=== PATIENT | male | born 1965 | race Caucasian/White ===

== ENCOUNTER 2022-08-27 16:17 | Outpatient (OUT) | payer OTHER, SELFPAY ==
[2022-08-27 16:35] LABS: Basophils Percent Auto 0.4 % (0.2-2.0); Eosinophils Absolute Auto 0.2 10^3/uL (0.0-0.7); Eosinophils Percent Auto 1.4 % (0.9-7.0); Hemoglobin 13.5 g/dL (14.0-18.0); Immature Granulocytes Abs Auto 0.04 10^3/uL (0.00-0.03); Immature Granulocytes Pct Auto 0.4 % (0.0-0.5); Lymphocytes Absolute Auto 2.6 10^3/uL (1.2-3.8); Lymphocytes Percent Auto 23.2 % (20.5-60.0); Mean Corpuscular HGB Conc 32.9 g/dL (29.9-35.2); Mean Corpuscular Hemoglobin 29.2 pg (25.9-34.0); Mean Corpuscular Volume 88.7 fL (80.0-94.0); Mean Platelet Volume 9.5 fL (9.5-13.5); Monocytes Absolute Auto 0.7 10^3/uL (0.3-0.8); Monocytes Percent Auto 6.4 % (1.7-12.0); Neutrophils Absolute Auto 7.5 10^3/uL (1.4-6.5); Neutrophils Percent Auto 68.2 % (43.0-75.0); Platelet Count 251 10^3/uL (150-450); Red Blood Count 4.62 10^6/uL (4.70-6.10); Red Cell Distribution Width 14.3 % (11.0-15.0)
[2022-08-27 16:36] LABS: Bilirubin Urine NEGATIVE (NEGATIVE); Blood Urine NEGATIVE (NEGATIVE); Clarity Urine CLEAR (CLEAR); Color Urine YELLOW (YELLOW); Glucose Urine UA >=1000 mg/dL (NEGATIVE); Ketones Urine NEGATIVE (NEGATIVE); Leukocyte Esterase Urine NEGATIVE (NEGATIVE); Nitrite Urine NEGATIVE (NEGATIVE); Protein Urine NEGATIVE (NEG/TRACE); Specific Gravity Urine >=1.030 (1.005-1.025); Urobilinogen Urine 0.2 EU/dL (0.2-1.0)
[2022-08-27 16:43] LABS: Bacteria Urine TRACE #/HPF (NONE SEEN); Cast Seen? SEEN #/LPF (NONE SEEN); Crystals Seen? None Seen #/HPF (None Seen); Hyaline Casts Urine RARE; Mucus Urine NONE SEEN (NONE SEEN); RBC Urine NONE SEEN #/HPF (0-2); Squamous Epithelial Cell Urine RARE #/LPF (NONE/RARE); WBC Urine NONE SEEN #/HPF (NONE SEEN)
[2022-08-27 16:55] LABS: Estimated Average Glucose 171 mg/dL; Glycohemoglobin A1C 7.6 % (4.5-6.2)
[2022-08-27 16:56] LABS: Alanine Aminotransferase 33 U/L (16-63); Albumin Globulin Ratio 0.9; Albumin Level 3.9 g/dL (3.4-5.0); Alkaline Phosphatase 68 U/L (46-116); Amylase 54 U/L (25-115); Anion Gap 13.5; Aspartate Amino Transferase 23 U/L (15-37); BUN Creatinine Ratio 17.5; Bilirubin Total 0.4 mg/dL (0.2-1.0); Calcium 9.6 mg/dL (8.5-10.1); Carbon Dioxide 27.5 mmol/L (21.0-32.0); Chloride 103 mmol/L (98-107); Estimated GFR (African America >60 (>=60); Estimated GFR (Non-African Ame >60 (>=60); Globulin 4.2 g/dL; Glucose 185 mg/dL (74-106); Sodium 140 mmol/L (136-145); Total Protein 8.1 g/dL (6.4-8.2)
== END 2022-08-27 16:18 | disposition home or self-care (01) ==
LOC: LAB 16:21
PROVIDERS: PCP Nurse Practitioner; Visit Provider Nurse Practitioner
DX: E11.9 Type 2 diabetes mellitus without complications (principal); R10.9 Unspecified abdominal pain
CPT/HCPCS: 36415; 80053; 81001; 82150; 83036; 83690; 85025

== ENCOUNTER 2022-09-07 07:45 | Outpatient (OUT) | payer OTHER, SELFPAY ==
--- NOTE | 2022-09-07 | US_ITS ---
The [address] [address] Patient Name: PITA HARDEN MRN: [id number] date: 1965 Sex: M Assigned Patient Location: [place] Current Patient Location: [place] Accession/Order Number: [id number] Exam Date: 09/07/2022 08:00 Report Date: 09/07/2022 11:20 At the request of: VALENTINO MENDIOLA Procedure: US right upper quadrant EXAM: US right upper quadrant EXAM DATE: 09/07/2022 6:00 AM MDT COMPARISON: None available. INDICATION: RUQ PAIN TECHNIQUE: Limited ultrasound of the right upper quadrant of abdomen was performed. Images were reviewed on a separate workstation. FINDINGS: Hepatic parenchyma is diffusely echogenic. Liver length measures 16.9 cm. No focal intraparenchymal abnormality detected. Gallbladder is normally distended. No intraluminal echogenic abnormality seen. No gallbladder wall thickening or pericholecystic fluid noted. Sonographic Aviles's sign is absent. No intrahepatic or extrahepatic biliary ductal dilatation noted. CBD measures 3.7 mm. Portal vein is patent with hepatopetal flow. Pancreas is partially obscured by bowel gas; visualized parenchyma is homogeneous. Right kidney measures 12.4 x 4.9 x 5.5 cm. No hydronephrosis or nephrolithiasis noted. No free fluid noted in the right upper abdomen. US/US right upper quadrant IMPRESSION: 1. Fatty infiltration of the liver. 2. No gallstones identified. Sonographic Aviles's sign is absent. Electronically authenticated by: ROBBY HE Date: 09/07/2022 11:20
== END 2022-09-07 07:46 | disposition home or self-care (01) ==
PROVIDERS: PCP Nurse Practitioner; Visit Provider Nurse Practitioner
DX: R10.11 Right upper quadrant pain (principal)
CPT/HCPCS: 76705

== ENCOUNTER 2022-09-16 11:54 | Outpatient (OUT) | payer OTHER, SELFPAY ==
--- NOTE | 2022-09-16 | NM_ITS ---
[address] [address] Patient Name: PITA HARDEN MRN: [id number] date: 1965 Sex: M Assigned Patient Location: [place] Current Patient Location: [place] Accession/Order Number: [id number] Exam Date: 09/16/2022 11:00 Report Date: 09/16/2022 15:58 At the request of: VALENTINO MENDIOLA Procedure: WI hepatobiliary w pharm EXAMINATION: [place] hepatobiliary w pharm HISTORY: RUQ PAIN , bloating, worse with fatty foods COMPARISON: Ultrasound right upper quadrant 09/07/2022 TECHNIQUE: Radionuclide hepatobiliary imaging was performed after intravenous injection of 4.6 mCi Tc-99m BRITTANY derivative with sequential acquisitions every 1 minute for one hour. Hepatobiliary imaging with gallbladder ejection fraction analysis was then performed with sequential imaging every 1 minute for 60 minutes following ingestion of 8 oz. Ensure Plus. FINDINGS: LIVER: Normal, prompt and uniform radiotracer uptake and clearing. BILIARY DUCTS: Normal radioisotopic biliary excretion. GALLBLADDER: Normal with no evidence of cystic duct obstruction. INTESTINE: Normal with no evidence of common biliary ductal obstruction. EJECTION FRACTION: 90 % within 60 minutes. (Normal EF > 38%). OTHER: Negative. [place] hepatobiliary w pharm IMPRESSION: 1. Normal nuclear medicine HIDA scan. Electronically authenticated by: STEPHANI DRISCOLL Date: 09/16/2022 15:58
== END 2022-09-16 11:55 | disposition home or self-care (01) ==
LOC: NM 11:54
PROVIDERS: PCP Nurse Practitioner; Visit Provider Nurse Practitioner
DX: R10.11 Right upper quadrant pain (principal)
CPT/HCPCS: 78227; A9537

== ENCOUNTER 2022-10-05 07:04 | Outpatient (OUT) | payer OTHER, SELFPAY ==
--- NOTE | 2022-10-05 07:10 | CT_ITS ---
The [address] [address] Patient Name: PITA HARDEN MRN: [id number] date: 1965 Sex: M Assigned Patient Location: CT Current Patient Location: Accession/Order Number: [id number] Exam Date: 10/05/2022 08:10 Report Date: 10/07/2022 09:00 At the request of: VALENTINO MENDIOLA Procedure: CT abdomen pelvis wo/w con EXAMINATION: CT abdomen pelvis wo/w con HISTORY: ABD PAIN. HX KIDNEY STONES R10.9 Z87.442 ; right upper quadrant pain for one month COMPARISON: No relevant comparison available. TECHNIQUE: Axial, Coronal, and Sagittal images were obtained without and/or with IV contrast as indicated by examination type. Dose reduction techniques were achieved by using automated exposure control and/or adjustment of mA and/or kV according to patient size and/or use of iterative reconstruction technique. FINDINGS: LUNG BASES: No visible pulmonary or pleural disease. LIVER: No enlargement, atrophy, suspicious density, or significant focal lesion. BILIARY: No dilatation or calcification. PANCREAS: No lesion, fluid collection, or abnormal duct dilatation. SPLEEN: No enlargement or focal lesion. ADRENALS: 3.2 cm almost entirely fatty right adrenal mass; lipoma versus adenoma. KIDNEYS: A few small rounded hypodensities within left kidney; too small to characterize but favoring cysts. No mass, obstruction, or calcification. BOWEL/MESENTERY: No visible mass, obstruction, or bowel wall thickening. Normal appendix. AORTA/VASCULAR: No aneurysm or dissection. RETROPERITONEUM: No mass or adenopathy. LYMPH NODES: No adenopathy. URINARY BLADDER: No visible focal wall thickening, lesion, or calculus. PELVIC ORGANS: No visible mass. Pelvic organs appropriate for patient age. ABDOMINAL WALL: No mass or hernia. BONES: No bony lesion or fracture. OTHER: Negative. CT/CT abdomen pelvis wo/w con IMPRESSION: 1. No acute or suspicious findings to account for patient's right upper quadrant symptoms. 2.No urinary tract calculi or obstructive uropathy. Electronically authenticated by: STEPHANI DRISCOLL Date: 10/07/2022 09:00
== END 2022-10-05 07:05 | disposition home or self-care (01) ==
LOC: CT 07:04
PROVIDERS: PCP Nurse Practitioner; Visit Provider Nurse Practitioner
DX: R10.9 Unspecified abdominal pain (principal); Z87.442 Personal history of urinary calculi
CPT/HCPCS: 74178; Q9967

== ENCOUNTER 2022-12-07 08:05 | Outpatient (OUT) | payer OTHER, SELFPAY ==
[2022-12-07 08:41] LABS: Estimated Average Glucose 177 mg/dL; Glycohemoglobin A1C 7.8 % (4.5-6.2)
[2022-12-07 09:23] LABS: BUN Creatinine Ratio 16.2; Calcium 9.1 mg/dL (8.5-10.1); Chloride 100 mmol/L (98-107); Estimated GFR (African America >60 (>=60); Estimated GFR (Non-African Ame >60 (>=60); Glucose 184 mg/dL (74-106); Sodium 141 mmol/L (136-145)
[2022-12-07 09:44] LABS: Prostate Specific Antigen Scrn 0.79 ng/mL (<=4.00)
== END 2022-12-07 08:06 | disposition home or self-care (01) ==
PROVIDERS: PCP Nurse Practitioner; Visit Provider Nurse Practitioner
DX: E11.42 Type 2 diabetes mellitus with diabetic polyneuropathy (principal); Z12.5 Encounter for screening for malignant neoplasm of prostate
CPT/HCPCS: 36415; 80048; 83036; G0103

== ENCOUNTER 2023-03-01 09:24 | Outpatient (OUT) | payer OTHER, SELFPAY ==
--- OUTSIDE RECORDS SUMMARY | 2023-03-01 09:27 | XMS_ITS | CCD ---
Author Name Unknown Address [address] [place] [id number] Organization [facility] Care Team Providers Care Foreign Car Mechanic Name Role Phone AICHHOLZ, VICE PRESIDENT OF COMPLIANCE VALENTINO Admitting Unavailable AICHHOLZ, VICE PRESIDENT OF COMPLIANCE VALENTINO Attending Unavailable AICHHOLZ, VICE PRESIDENT OF COMPLIANCE VALENTINO Primary Care Unavailable AICHHOLZ, VICE PRESIDENT OF COMPLIANCE VALENTINO Consulting Unavailable MADONNA CRUZ Consulting Unavailable AICHHOLZ, VICE PRESIDENT OF COMPLIANCE VALENTINO Admitting Unavailable AICHHOLZ, VICE PRESIDENT OF COMPLIANCE VALENTINO Attending Unavailable AICHHOLZ, VICE PRESIDENT OF COMPLIANCE VALENTINO Primary Care Unavailable AICHHOLZ, VICE PRESIDENT OF COMPLIANCE VALENTINO Consulting Unavailable AICHHOLZ, VICE PRESIDENT OF COMPLIANCE VALENTINO Admitting Unavailable AICHHOLZ, VICE PRESIDENT OF COMPLIANCE VALENTINO Attending Unavailable AICHHOLZ, VICE PRESIDENT OF COMPLIANCE VALENTINO Primary Care Unavailable AICHHOLZ, VICE PRESIDENT OF COMPLIANCE VALENTINO Consulting Unavailable AICHHOLZ, VALENTINO Attending Unavailable Allergies Allergy Classification Reported Allergen(s) Allergy Type Date of Onset Reaction(s) Facility (1 source) Amoxicillin Drug Allergy 03-24-2019 [facility] Repository Problems Active Problems Problem Classification Problem Date Documented Da te Episodic/Chronic Diabetes mellitus with complications (4 sources) Type 2 diabetes mellitus with diabetic polyneuropathy; Translations: [TYPE 2 DM W/DIABETIC POLYNEUROPATHY] Onset: 04-06-2022 Chronic Diabetes mellitus without complication (5 sources) Type 2 diabetes mellitus without complications; Translations: [TYPE 2 DM WITHOUT COMPLICATIONS] Onset: 06-26-2021 Chronic Other non-traumatic joint disorders (1 source) Pain in right hip; Translations: [PAIN IN RIGHT HIP] Onset: 04-11-2022 Episodic Other screening for suspected conditions (not mental disorders or infectious disease) (6 sources) Other specified abnormal findings of blood chemistry; Translations: [Encounter for screening for malignant neoplasm of prostate] Onset: 10-01-2021 Episodic Past or Other Problems Problem Classification Problem Date Documented Da te Episodic/Chronic Deficiency and other anemia (1 source) Anemia, unspecified; Translations: [ANEMIA UNSPECIFIED] Onset: 06-29-2021 Episodic Results Test Name Value Interpretation Reference Range Facility XR HIP RT 2 3V W PELVISon XR HIP RT 2 3V W PELVIS EXAM: XR HIP RT 2 3V W PELVIS HISTORY: Pain in right hip joint COMPARISON: None. TECHNIQUE: Frontal view of the pelvis with frontal and frog-leg views of the right hip FINDINGS/ IMPRESSION: 1. Mineralization within normal limits. 2. No acute fractures or dislocations. 3. Mild bilateral hip osteoarthritis. Maintained overall alignment. 4. Atherosclerotic calcifications are present. Electronically authenticated by: MADONNA CRUZ Date: 2022-04-08 08:01 Normal [facility] CBC AUTO DIFFon 04-06-2022 BASO # 0.0 103/ul Normal 0.0-0.1 [facility] Comment on above: Performed By: #### P SASC, FETIBC, FERR #### [facility] [address] [place] [address] Dr. Thais Nava Basophils/100 WBC (Bld) 0.3 % Normal 0.2-2.0 [facility] Comment on above: Performed By: #### P SASC, FETIBC, FERR #### [facility] [address] [place] [address] Dr. Thais Nava EO # 0.1 103/ul Normal 0.0-0.7 [facility] Comment on above: Performed By: #### P SASC, FETIBC, FERR #### [facility] [address] [place] [address] Dr. Thais Nava Eosinophils/100 WBC (Bld) 1.1 % Normal 0.9-7.0 [facility] Comment on above: Performed By: #### P SASC, FETIBC, FERR #### [facility] [address] [place] [address] Dr. Thais Nava Erythrocyte distribution width (RBC) [Ratio] 14.5 % Normal 11.0-15.0 [facility] Comment on above: Performed By: #### P SASC, FETIBC, FERR #### [facility] [address] [place] [address] Dr. Thais Nava Hematocrit (Bld) [Volume fraction] 44.0 % Normal 42.0-54.0 [facility] Comment on above: Performed By: #### P SASC, FETIBC, FERR #### [facility] [address] [place] [address] Dr. Thais Nava Hemoglobin (Bld) [Mass/Vol] 14.5 g/dL Normal 14.0-18.0 [facility] Comment on above: Performed By: #### P SASC, FETIBC, FERR #### [facility] [address] [place] [address] Dr. Thais Nava IG # 0.03 10e3/ul Normal 0.00-0.03 [facility] Comment on above: Performed By: #### P SASC, FETIBC, FERR #### [facility] [address] [place] [address] Dr. Thais Nava IG % 0.4 % Normal 0.0-0.5 [facility] Comment on above: Performed By: #### P SASC, FETIBC, FERR #### [facility] [address] [place] [address] Dr. Thais Nava LYMPH # 2.0 103/ul Normal 1.2-3.8 [facility] Comment on above: Performed By: #### P SASC, FETIBC, FERR #### [facility] [address] [place] [address] Dr. Thais Nava Lymphocytes/100 WBC (Bld) 26.2 % Normal 20.5-60.0 [facility] Comment on above: Performed By: #### P SASC, FETIBC, FERR #### [facility] [address] [place] [address] Dr. Thais Nava MANUAL DIFF REQ NO Normal [facility] Comment on above: Performed By: #### P SASC, FETIBC, FERR #### [facility] [address] [place] [address] Dr. Thais Nava MCH (RBC) [Entitic mass] 28.2 pg Normal 25.9-34.0 [facility] Comment on above: Performed By: #### P SASC, FETIBC, FERR #### [facility] [address] [place] [address] Dr. Thais Nava MCHC (RBC) [Mass/Vol] 33.0 g/dL Normal 29.9-35.2 [facility] Comment on above: Performed By: #### P SASC, FETIBC, FERR #### [facility] [address] [place] [address] Dr. Thais Nava MCV (RBC) [Entitic vol] 85.6 fL Normal 80.0-94.0 [facility] Comment on above: Performed By: #### P SASC, FETIBC, FERR #### [facility] [address] [place] [address] Dr. Thais Nava MONO # 0.5 103/ul Normal 0.3-0.8 [facility] Comment on above: Performed By: #### P SASC, FETIBC, FERR #### [facility] [address] [place] [address] Dr. Thais Nava Monocytes/100 WBC (Bld) 6.3 % Normal 1.7-12.0 [facility] Comment on above: Performed By: #### P SASC, FETIBC, FERR #### [facility] [address] [place] [address] Dr. Thais Nava NEUT # 5.0 103/ul Normal 1.4-6.5 [facility] Comment on above: Performed By: #### P SASC, FETIBC, FERR #### [facility] [address] [place] [address] Dr. Thais Nava Neutrophils/100 WBC (Bld) 65.7 % Normal 43.0-75.0 [facility] Comment on above: Performed By: #### P SASC, FETIBC, FERR #### [facility] [address] [place] [address] Dr. Thais Nava Platelet mean volume (Bld) [Entitic vol] 9.7 fL Normal 9.5-13.5 [facility] Comment on above: Performed By: #### P SASC, FETIBC, FERR #### [facility] [address] [place] [address] Dr. Thais Nava PLT 279 103/ul Normal 150-450 [facility] Comment on above: Performed By: #### P SASC, FETIBC, FERR #### [facility] [address] [address] [address] Thais Nava RBC 5.14 106/ul Normal 4.70-6.10 [facility] Comment on above: Performed By: #### P SASC, FETIBC, FERR #### [facility] [address] [address] [address] Thais Nava WBC 7.6 103/ul Normal 4.0-11.0 [facility] Comment on above: Performed By: #### P SASC, FETIBC, FERR #### [facility] [address] [place] [address] Dr. Thais Nava FERRITINon 04-06-2022 Ferritin [Mass/Vol] 709.0 ng/mL Critically high 26.0-388.0 [facility] Comment on above: Performed By: #### F ERR #### [facility] [address] [place] [address] Dr. Thais Nava GLYCOHEMOGLOBIN A1Con 2022 ADA RECOMMENDATION SEE BELOW Normal [facility] Comment on above: Result Comment: ADA RECOMMENDED LIMIT 4.0 - 6.0 ADA THERAPEUTIC TARGET < 7.0 ACTION SUGGESTED > 7.0 Performed By: #### A 1C #### [facility] [address] [place] [address] Dr. Thais Nava Glucose [Mass/Vol] 157 mg/dL Normal [facility] Comment on above: Performed By: #### A 1C #### [facility] [address] [place] [address] Dr. Thais Nava HbA1c (Bld) [Mass fraction] 7.1 % Critically high 4.5-6.2 [facility] Comment on above: Performed By: #### A 1C #### [facility] [address] [place] [address] Dr. Thais Nava PROF CHEM 8 (BAS METB)on Anion gap [Moles/Vol] 11.8 mmol/L Normal [facility] Comment on above: Performed By: #### B MP #### [facility] [address] [address] [address] Thais Nava Calcium [Mass/Vol] 9.7 mg/dL Normal 8.5-10.1 [facility] Comment on above: Performed By: #### B MP #### [facility] [address] [address] [address] Thais Nava Chloride [Moles/Vol] 99 mmol/L Normal 98-107 [facility] Comment on above: Performed By: #### B MP #### [facility] [address] [place] [address] Dr. Thais Nava CO2 [Moles/Vol] 32.4 mmol/L Critically high 21.0-32.0 [facility] Comment on above: Performed By: #### B MP #### [facility] [address] [place] [address] Dr. Thais Nava Creatinine [Mass/Vol] 1.00 mg/dL Normal 0.70-1.30 [facility] Comment on above: Performed By: #### B MP #### [facility] [address] [place] [address] Dr. Thais Nava EGFR-AF LAO >60 Normal >=60 [facility] Comment on above: Performed By: #### B MP #### [facility] [address] [address] [address] Thais Nava EGFR-NON AF LAO >60 Normal >=60 [facility] Comment on above: Performed By: #### B MP #### [facility] [address] [place] [address] Dr. Thais Nava Glucose [Mass/Vol] 177 mg/dL Critically high 74-106 [facility] Comment on above: Performed By: #### B MP #### [facility] [address] [place] [address] Dr. Thais Nava Potassium [Moles/Vol] 4.2 mmol/L Normal 3.5-5.1 [facility] Comment on above: Performed By: #### B MP #### [facility] [address] [place] [address] Dr. Thais Nava Sodium [Moles/Vol] 139 mmol/L Normal 136-145 [facility] Comment on above: Performed By: #### B MP #### [facility] [address] [place] [address] Dr. Thais Nava Urea nitrogen [Mass/Vol] 22.0 mg/dL Critically high 7.0-18.0 [facility] Comment on above: Performed By: #### B MP #### [facility] [address] [place] [address] Dr. Thais Nava Urea nitrogen/Creatinine [Mass ratio] 22.0 mg/mg Normal [facility] Comment on above: Performed By: #### B MP #### [facility] [address] [place] [address] Dr. Thais Nava TRANSFERRINon 10-02-2021 Transferrin [Mass/Vol] 245 mg/dL Normal 177-329 [facility] Comment on above: Performed By: #### P SASC, FETIBC, FERR #### [facility] [address] [place] [address] Dr. Thais Nava CBC AUTO DIFFon 10-01-2021 BASO # 0.0 103/ul Normal 0.0-0.1 [facility] Comment on above: Performed By: #### P SASC, FETIBC, FERR #### [facility] [address] [place] [address] Dr. Thais Nava Basophils/100 WBC (Bld) 0.4 % Normal 0.2-2.0 [facility] Comment on above: Performed By: #### P SASC, FETIBC, FERR #### [facility] [address] [place] [address] Dr. Thais Nava EO # 0.1 103/ul Normal 0.0-0.7 [facility] Comment on above: Performed By: #### P SASC, FETIBC, FERR #### [facility] [address] [place] [address] Dr. Thais Nava Eosinophils/100 WBC (Bld) 1.8 % Normal 0.9-7.0 [facility] Comment on above: Performed By: #### P SASC, FETIBC, FERR #### [facility] [address] [place] [address] Dr. Thais Nava Erythrocyte distribution width (RBC) [Ratio] 14.1 % Normal 11.0-15.0 [facility] Comment on above: Performed By: #### P SASC, FETIBC, FERR #### [facility] [address] [place] [address] Dr. Thais Nava Hematocrit (Bld) [Volume fraction] 40.3 % Critically low 42.0-54.0 [facility] Comment on above: Performed By: #### P SASC, FETIBC, FERR #### [facility] [address] [place] [address] Dr. Thais Nava Hemoglobin (Bld) [Mass/Vol] 13.2 g/dL Critically low 14.0-18.0 [facility] Comment on above: Performed By: #### P SASC, FETIBC, FERR #### [facility] [address] [place] [address] Dr. Thais Nava IG # 0.03 10e3/ul Normal 0.00-0.03 [facility] Comment on above: Performed By: #### P SASC, FETIBC, FERR #### [facility] [address] [place] [address] Dr. Thais Nava IG % 0.4 % Normal 0.0-0.5 [facility] Comment on above: Performed By: #### P SASC, FETIBC, FERR #### [facility] [address] [place] [address] Dr. Thais Nava LYMPH # 1.8 103/ul Normal 1.2-3.8 [facility] Comment on above: Performed By: #### P SASC, FETIBC, FERR #### [facility] [address] [place] [address] Dr. Thais Nava Lymphocytes/100 WBC (Bld) 25.0 % Normal 20.5-60.0 [facility] Comment on above: Performed By: #### P SASC, FETIBC, FERR #### [facility] [address] [place] [address] Dr. Thais Nava MANUAL DIFF REQ NO Normal [facility] Comment on above: Performed By: #### P SASC, FETIBC, FERR #### [facility] [address] [place] [address] Dr. Thais Nava MCH (RBC) [Entitic mass] 28.8 pg Normal 25.9-34.0 [facility] Comment on above: Performed By: #### P SASC, FETIBC, FERR #### [facility] [address] [place] [address] Dr. Thais Nava MCHC (RBC) [Mass/Vol] 32.8 g/dL Normal 29.9-35.2 [facility] Comment on above: Performed By: #### P SASC, FETIBC, FERR #### [facility] [address] [place] [address] Dr. Thais Nava MCV (RBC) [Entitic vol] 88.0 fL Normal 80.0-94.0 [facility] Comment on above: Performed By: #### P SASC, FETIBC, FERR #### [facility] [address] [place] [address] Dr. Thais Nava MONO # 0.4 103/ul Normal 0.3-0.8 [facility] Comment on above: Performed By: #### P SASC, FETIBC, FERR #### [facility] [address] [place] [address] Dr. Thais Nava Monocytes/100 WBC (Bld) 5.6 % Normal 1.7-12.0 [facility] Comment on above: Performed By: #### P SASC, FETIBC, FERR #### [facility] [address] [place] [address] Dr. Thais Nava NEUT # 4.9 103/ul Normal 1.4-6.5 [facility] Comment on above: Performed By: #### P SASC, FETIBC, FERR #### [facility] [address] [address] [address] Thais Nava Neutrophils/100 WBC (Bld) 66.8 % Normal 43.0-75.0 [facility] Comment on above: Performed By: #### P SASC, FETIBC, FERR #### [facility] [address] [place] [address] Dr. Thais Nava Platelet mean volume (Bld) [Entitic vol] 10.8 fL Normal 9.5-13.5 [facility] Comment on above: Performed By: #### P SASC, FETIBC, FERR #### [facility] [address] [place] [address] Dr. Thais Nava PLT 205 103/ul Normal 150-450 [facility] Comment on above: Performed By: #### P SASC, FETIBC, FERR #### [facility] [address] [place] [address] Dr. Thais Nava RBC 4.58 106/ul Critically low 4.70-6.10 [facility] Comment on above: Performed By: #### P SASC, FETIBC, FERR #### [facility] [address] [place] [address] Dr. Thais Nava WBC 7.3 103/ul Normal 4.0-11.0 [facility] Comment on above: Performed By: #### P SASC, FETIBC, FERR #### [facility] [address] [place] [address] Dr. Thais Nava CRPon 10-01-2021 CRP [Mass/Vol] mg/L Normal <=1.0 [facility] Comment on above: Performed By: #### P SASC, FETIBC, FERR #### [facility] [address] [place] [address] Dr. Thais Nava FERRITINon 10-01-2021 Ferritin [Mass/Vol] 631.0 ng/mL Critically high 26.0-388.0 [facility] Comment on above: Performed By: #### P SASC, FETIBC, FERR #### [facility] [address] [place] [address] Dr. Thais Nava GLYCOHEMOGLOBIN A1Con 2021 ADA RECOMMENDATION SEE BELOW Normal [facility] Comment on above: Result Comment: ADA RECOMMENDED LIMIT 4.0 - 6.0 ADA THERAPEUTIC TARGET < 7.0 ACTION SUGGESTED > 7.0 Performed By: #### A 1C #### [facility] [address] [place] [address] Dr. Thais Nava Glucose [Mass/Vol] 200 mg/dL Normal [facility] Comment on above: Performed By: #### A 1C #### [facility] [address] [place] [address] Dr. Thais Nava HbA1c (Bld) [Mass fraction] 8.6 % Critically high 4.5-6.2 [facility] Comment on above: Performed By: #### A 1C #### [facility] [address] [place] [address] Dr. Thais Nava IRON AND TIBCon 10-01-2021 % SATURATION 24.1 % Normal [facility] Comment on above: Performed By: #### P SASC, FETIBC, FERR #### [facility] [address] [place] [address] Dr. Thais Nava Iron [Mass/Vol] 68.0 ug/dL Normal 65.0-175.0 [facility] Comment on above: Performed By: #### P SASC, FETIBC, FERR #### [facility] [address] [place] [address] Dr. Thais Nava TIBC DIRECT 282.0 ug/dL Normal 250.0-450.0 [facility] Comment on above: Performed By: #### P SASC, FETIBC, FERR #### [facility] [address] [place] [address] Dr. Thais Nava PROF 14(COMP METB)on 022 Albumin [Mass/Vol] 3.3 g/dL Critically low 3.4-5.0 [facility] Comment on above: Performed By: #### P SASC, FETIBC, FERR #### [facility] [address] [place] [address] Dr. Thais Nava Albumin/Globulin [Mass ratio] 0.9 {ratio} Normal [facility] Comment on above: Performed By: #### P SASC, FETIBC, FERR #### [facility] [address] [place] [address] Dr. Thais Nava ALP [Catalytic activity/Vol] 69 U/L Normal 46-116 [facility] Comment on above: Performed By: #### P SASC, FETIBC, FERR #### [facility] [address] [place] [address] Dr. Thais Nava ALT [Catalytic activity/Vol] 34 U/L Normal 16-63 [facility] Comment on above: Performed By: #### P SASC, FETIBC, FERR #### [facility] [address] [place] [address] Dr. Thais Nava Anion gap [Moles/Vol] 16.8 mmol/L Normal [facility] Comment on above: Performed By: #### P SASC, FETIBC, FERR #### [facility] [address] [place] [address] Dr. Thais Nava AST [Catalytic activity/Vol] 20 U/L Normal 15-37 [facility] Comment on above: Performed By: #### P SASC, FETIBC, FERR #### [facility] [address] [place] [address] Dr. Thais Nava Bilirubin [Mass/Vol] 0.4 mg/dL Normal 0.2-1.0 [facility] Comment on above: Performed By: #### P SASC, FETIBC, FERR #### [facility] [address] [place] [address] Dr. Thais Nava Calcium [Mass/Vol] 8.7 mg/dL Normal 8.5-10.1 [facility] Comment on above: Performed By: #### P SASC, FETIBC, FERR #### [facility] [address] [place] [address] Dr. Thais Nava Chloride [Moles/Vol] 102 mmol/L Normal 98-107 [facility] Comment on above: Performed By: #### P SASC, FETIBC, FERR #### [facility] [address] [address] [address] Thais Nava CO2 [Moles/Vol] 23.5 mmol/L Normal 21.0-32.0 [facility] Comment on above: Performed By: #### P SASC, FETIBC, FERR #### [facility] [address] [address] [address] Thais Nava Creatinine [Mass/Vol] 1.07 mg/dL Normal 0.70-1.30 [facility] Comment on above: Performed By: #### P SASC, FETIBC, FERR #### [facility] [address] [address] [address] Thais Nava EGFR-AF LAO >60 Normal >=60 [facility] Comment on above: Performed By: #### P SASC, FETIBC, FERR #### [facility] [address] [address] [address] Thais Nava EGFR-NON AF LAO >60 Normal >=60 [facility] Comment on above: Performed By: #### P SASC, FETIBC, FERR #### [facility] [address] [address] [address] Thais Nava Globulin (S) [Mass/Vol] 3.8 g/dL Normal [facility] Comment on above: Performed By: #### P SASC, FETIBC, FERR #### [facility] [address] [address] [address] Thais Nava Glucose [Mass/Vol] 317 mg/dL Critically high 74-106 [facility] Comment on above: Performed By: #### P SASC, FETIBC, FERR #### [facility] [address] [address] [address] Thais Nava Potassium [Moles/Vol] 4.3 mmol/L Normal 3.5-5.1 [facility] Comment on above: Performed By: #### P SASC, FETIBC, FERR #### [facility] [address] [place] [address] Dr. Thais Nava Protein [Mass/Vol] 7.1 g/dL Normal 6.4-8.2 [facility] Comment on above: Performed By: #### P SASC, FETIBC, FERR #### [facility] [address] [place] [address] Dr. Thais Nava Sodium [Moles/Vol] 138 mmol/L Normal 136-145 [facility] Comment on above: Performed By: #### P SASC, FETIBC, FERR #### [facility] [address] [place] [address] Dr. Thais Nava Urea nitrogen [Mass/Vol] 16.0 mg/dL Normal 7.0-18.0 [facility] Comment on above: Performed By: #### P SASC, FETIBC, FERR #### [facility] [address] [place] [address] Dr. Thais Nava Urea nitrogen/Creatinine [Mass ratio] 15.0 mg/mg Normal [facility] Comment on above: Performed By: #### P SASC, FETIBC, FERR #### [facility] [address] [place] [address] Dr. Thais Nava [facility] SED RATE 31 mm/hr Critically high <=20 [facility] Comment on above: Performed By: #### S EDR #### [facility] [address] [place] [address] Dr. Thais Nava VITAMIN B12on 06-27-2021 Cobalamin (Vitamin B12) [Mass/Vol] 481 pg/mL Normal 232-1245 [facility] Comment on above: Performed By: #### V B12LC #### [facility] [address] [place] [address] Dr. Thais Nava CBC AUTO DIFFon 06-26-2021 BASO # 0.0 103/ul Normal 0.0-0.1 [facility] Comment on above: Performed By: #### C BC #### [facility] [address] [place] [address] Dr. Thais Nava Basophils/100 WBC (Bld) 0.4 % Normal 0.2-2.0 [facility] [facility] Comment on above: Performed By: #### C BC #### [facility] [address] [place] [address] Dr. Thais Nava EO # 0.1 103/ul Normal 0.0-0.7 [facility] Comment on above: Performed By: #### C BC #### [facility] [address] [place] [address] Dr. Thais Nava Eosinophils/100 WBC (Bld) 1.5 % Normal 0.9-7.0 [facility] Comment on above: Performed By: #### C BC #### [facility] [address] [place] [address] Dr. Thais Nava Erythrocyte distribution width (RBC) [Ratio] 14.7 % Normal 11.0-15.0 [facility] Comment on above: Performed By: #### C BC #### [facility] [address] [place] [address] Dr. Thais Nava Hematocrit (Bld) [Volume fraction] 44.1 % Normal 42.0-54.0 [facility] Comment on above: Performed By: #### C BC #### [facility] [address] [place] [address] Dr. Thais Nava Hemoglobin (Bld) [Mass/Vol] 14.3 g/dL Normal 14.0-18.0 [facility] Comment on above: Performed By: #### C BC #### [facility] [address] [place] [address] Dr. Thais Nava IG # 0.03 10e3/ul Normal 0.00-0.03 [facility] Comment on above: Performed By: #### C BC #### [facility] [address] [place] [address] Dr. Thais Nava IG % 0.3 % Normal 0.0-0.5 [facility] Comment on above: Performed By: #### C BC #### [facility] [address] [place] [address] Dr. Thais Nava LYMPH # 2.3 103/ul Normal 1.2-3.8 [facility] Comment on above: Performed By: #### C BC #### [facility] [address] [place] [address] Dr. Thais Nava Lymphocytes/100 WBC (Bld) 24.9 % Normal 20.5-60.0 [facility] Comment on above: Performed By: #### C BC #### [facility] [address] [place] [address] Dr. Thais Nava MANUAL DIFF REQ NO Normal [facility] Comment on above: Performed By: #### C BC #### [facility] [address] [place] [address] Dr. Thais Nava MCH (RBC) [Entitic mass] 28.7 pg Normal 25.9-34.0 [facility] Comment on above: Performed By: #### C BC #### [facility] [address] [place] [address] Dr. Thais Nava MCHC (RBC) [Mass/Vol] 32.4 g/dL Normal 29.9-35.2 [facility] Comment on above: Performed By: #### C BC #### [facility] [address] [place] [address] Dr. Thais Nava MCV (RBC) [Entitic vol] 88.4 fL Normal 80.0-94.0 [facility] Comment on above: Performed By: #### C BC #### [facility] [address] [place] [address] Dr. Thais Nava MONO # 0.6 103/ul Normal 0.3-0.8 [facility] Comment on above: Performed By: #### C BC #### [facility] [address] [place] [address] Dr. Thais Nava Monocytes/100 WBC (Bld) 6.7 % Normal 1.7-12.0 [facility] Comment on above: Performed By: #### C BC #### [facility] [address] [place] [address] Dr. Thais Nava NEUT # 6.2 103/ul Normal 1.4-6.5 [facility] Comment on above: Performed By: #### C BC #### [facility] [address] [place] [address] Dr. Thais Nava Neutrophils/100 WBC (Bld) 66.2 % Normal 43.0-75.0 [facility] Comment on above: Performed By: #### C BC #### [facility] [address] [place] [address] Dr. Thais Nava Platelet mean volume (Bld) [Entitic vol] 10.5 fL Normal 9.5-13.5 [facility] Comment on above: Performed By: #### C BC #### [facility] [address] [place] [address] Dr. Thais Nava PLT 262 103/ul Normal 150-450 [facility] Comment on above: Performed By: #### C BC #### [facility] [address] [place] [address] Dr. Thais Nava RBC 4.99 106/ul Normal 4.70-6.10 [facility] Comment on above: Performed By: #### C BC #### [facility] [address] [place] [address] Dr. Thais Nava WBC 9.4 103/ul Normal 4.0-11.0 [facility] Comment on above: Performed By: #### C BC #### [facility] [address] [place] [address] Dr. Thais Nava FERRITINon 06-26-2021 Ferritin [Mass/Vol] 665.0 ng/mL Critically high 26.0-388.0 [facility] Comment on above: Performed By: #### P SASC, FETIBC, FERR #### [facility] [address] [place] [address] Dr. Thais Nava GLYCOHEMOGLOBIN A1Con 2021 ADA RECOMMENDATION SEE BELOW Normal [facility] Comment on above: Result Comment: ADA RECOMMENDED LIMIT 4.0 - 6.0 ADA THERAPEUTIC TARGET < 7.0 ACTION SUGGESTED > 7.0 Performed By: #### P SASC, FETIBC, FERR #### [facility] [address] [address] [address] Thais Nava Glucose [Mass/Vol] 194 mg/dL Normal [facility] Comment on above: Performed By: #### P SASC, FETIBC, FERR #### [facility] [address] [address] [address] Thais Nava HbA1c (Bld) [Mass fraction] 8.4 % Critically high 4.5-6.2 [facility] Comment on above: Performed By: #### P SASC, FETIBC, FERR #### [facility] [address] [address] [address] Thais Nava IRONon 06-26-2021 Iron [Mass/Vol] 85.0 ug/dL Normal 65.0-175.0 [facility] Comment on above: Performed By: #### P SASC, FETIBC, FERR #### [facility] [address] [address] [address] Thais Nava Encounters Encounter Date Encounter Type Care Provider Facility Start: 02-25-2023 End: 02-25-2023 ambulatory VALENTINO MENDIOLA Not Available Start: 04-06-2022 End: 04-07-2022 ambulatory KHURRAM MENDIOLA Facility:[facility] Start: 10-01-2021 End: 10-02-2021 ambulatory KHURRAM MENDIOLA Facility:[facility] Start: 06-26-2021 End: 06-27-2021 ambulatory KHURRAM MENDIOLA Facility:[facility] Procedures Date Procedure Procedure Detail Performing Clinician Start: 10-01-2021 PSA screening KHURRAM IRENEJAKEFranky Comment on above: Performed By: #### P SASC, FETIBC, FERR #### [facility] [address] [address] [address] Thais Nava Payers Date Payer Category Payer Unknown [id number] 1965 Unknown [id number] 2.16.84 [id number] 1965 Unknown [id number] 2.16.84 [id number] 1965 Unknown [id number] 2.16.84 [id number] 1965 Unknown [id number] 2.16.84 [id number] 1961 Unknown [id number] 1961 Unknown [id number] Summary Purpose Family History No Family History Records FoundNo Family History Records Found Advance Directives No Advanced Directives Records FoundNo Advanced Directives Records Found Additional Source Comments (unrecognized sect ion and content) No Status Records FoundNo Status Records Found INFORMATION SOURCE (unrecogn ized section and content) DATE CREATED AUTHOR 04/12/2022 [facility] DATE CREATED AUTHOR 'Chito RODRIGUEZ 02/26/2023 [facility] EPIC FOR RECORDS PERTAINING TO PATIENTS WHO ARE OR HAVE BEEN ENROLLED IN A CHEMICAL DEPENDENCY/SUBSTANCEABUSE PROGRAM, SOME INFORMATION MAY BE OMITTED. This clinical summary was aggregated from multiple sources. Caution should be exercised in using it in the provision of clinical care. This summary normalizes information from multiple sources, and as a consequence, information in this document may materially change the coding, format and clinical context of patient data. In addition, data may be omitted in some cases. CLINICAL DECISIONS SHOULD BE BASED ON THE PRIMARY CLINICAL RECORDS. [facility] [employer] provides no warranty or guarantee of the accuracy or completeness of information in this document.
[2023-03-01 10:39] LABS: Basophils Percent Auto 0.7 % (0.2-2.0); Eosinophils Absolute Auto 0.1 10^3/uL (0.0-0.7); Eosinophils Percent Auto 2.4 % (0.9-7.0); Hematocrit 38.6 % (42.0-54.0); Hemoglobin 12.8 g/dL (14.0-18.0); Immature Granulocytes Abs Auto 0.01 10^3/uL (0.00-0.03); Immature Granulocytes Pct Auto 0.2 % (0.0-0.5); Lymphocytes Absolute Auto 1.8 10^3/uL (1.2-3.8); Lymphocytes Percent Auto 30.6 % (20.5-60.0); Mean Corpuscular HGB Conc 33.2 g/dL (29.9-35.2); Mean Corpuscular Hemoglobin 29.6 pg (25.9-34.0); Mean Corpuscular Volume 89.4 fL (80.0-94.0); Mean Platelet Volume 10.4 fL (9.5-13.5); Monocytes Absolute Auto 0.4 10^3/uL (0.3-0.8); Monocytes Percent Auto 6.9 % (1.7-12.0); Neutrophils Absolute Auto 3.4 10^3/uL (1.4-6.5); Neutrophils Percent Auto 59.2 % (43.0-75.0); Platelet Count 226 10^3/uL (150-450); Red Blood Count 4.32 10^6/uL (4.70-6.10); Red Cell Distribution Width 13.5 % (11.0-15.0); White Blood Count 5.8 10^3/uL (4.0-11.0)
[2023-03-01 11:05] LABS: Estimated Average Glucose 189 mg/dL; Glycohemoglobin A1C 8.2 % (4.5-6.2)
[2023-03-01 11:37] LABS: Bilirubin Urine NEGATIVE (NEGATIVE); Blood Urine TRACE-I (NEGATIVE); Clarity Urine CLEAR (CLEAR); Color Urine YELLOW (YELLOW); Glucose Urine UA NEGATIVE (NEGATIVE); Ketones Urine NEGATIVE (NEGATIVE); Leukocyte Esterase Urine NEGATIVE (NEGATIVE); Nitrite Urine NEGATIVE (NEGATIVE); Protein Urine NEGATIVE (NEG/TRACE); Specific Gravity Urine >=1.030 (1.005-1.025); Urine Microscopic Indicated YES; Urobilinogen Urine 0.2 EU/dL (0.2-1.0); pH Urine 5.5 (5.0-9.0)
[2023-03-01 11:47] LABS: Amorphous Sediment Urine FEW; Bacteria Urine NONE SEEN #/HPF (NONE SEEN); Cast Seen? NONE SEEN #/LPF (NONE SEEN); Crystals Seen? Seen #/HPF (None Seen); Mucus Urine SMALL (NONE SEEN); Squamous Epithelial Cell Urine RARE #/LPF (NONE/RARE); WBC Urine 0-2 #/HPF (NONE SEEN)
[2023-03-01 12:10] LABS: Alanine Aminotransferase 33 U/L (16-63); Albumin Globulin Ratio 0.8; Albumin Level 3.3 g/dL (3.4-5.0); Alkaline Phosphatase 53 U/L (46-116); Aspartate Amino Transferase 20 U/L (15-37); BUN Creatinine Ratio 12.6; Bilirubin Total 0.4 mg/dL (0.2-1.0); Calcium 8.6 mg/dL (8.5-10.1); Chloride 104 mmol/L (98-107); Chol HDL Ratio 3.1; Cholesterol 160 mg/dL (<=200); Estimated GFR (African America >60 (>=60); Estimated GFR (Non-African Ame >60 (>=60); Globulin 3.9 g/dL; Glucose 151 mg/dL (74-106); HDL Cholesterol 52 mg/dL (40-60); LDL Cholesterol Calculated 78.4 mg/dL; Sodium 141 mmol/L (136-145); Total Protein 7.2 g/dL (6.4-8.2); Triglycerides 148 mg/dL (<=150); VLDL CHOLESTEROL 29.6 mg/dL
[2023-03-01 13:02] LABS: Creatinine Urine Random 189.25 mg/dL (20.00-300.00); Microalbum Creatinine Ratio Ur 28.5 mg/g (0.0-29.9); Microalbumin Urine Random 5.4 mg/dL (<=30.0)
== END 2023-03-01 09:25 | disposition home or self-care (01) ==
LOC: LAB 09:25
PROVIDERS: PCP Nurse Practitioner; Visit Provider Nurse Practitioner
DX: E11.42 Type 2 diabetes mellitus with diabetic polyneuropathy (principal); E78.2 Mixed hyperlipidemia; I10 Essential (primary) hypertension
CPT/HCPCS: 36415; 80053; 80061; 81001; 82043; 82570; 83036; 85025

== ENCOUNTER 2023-04-02 15:13 | Outpatient (OUT) | payer OTHER, SELFPAY ==
--- NOTE | 2023-04-02 15:22 | XR_ITS ---
The [address] [address] Patient Name: PITA HARDEN MRN: [id number] date: 1965 Sex: M Assigned Patient Location: LAB Current Patient Location: Accession/Order Number: [id number] Exam Date: 04/02/2023 15:32 Report Date: 04/03/2023 07:18 At the request of: VALENTINO MENDIOLA Procedure: XR abdomen 1V EXAMINATION: XR abdomen 1V HISTORY: Microscopic hematuria R31.29 COMPARISON: CT abdomen pelvis 10/05/2022 FINDINGS: KIDNEY/URETER - RIGHT: No visible renal or ureteral calcifications. KIDNEY/URETER - LEFT: No visible renal or ureteral calcifications. PELVIS: No visible ureteral calcifications. Any visible calcifications favor phleboliths. BOWEL: No abnormal dilation or deviation. BONES: No acute abnormality. OTHER: Negative. No abnormal gaseous collections. XR/XR abdomen 1V IMPRESSION: 1. No appreciable urinary tract calculi. Electronically authenticated by: STEPHANI DRISCOLL Date: 04/03/2023 07:18
[2023-04-02 16:38] LABS: Bilirubin Urine NEGATIVE (NEGATIVE); Blood Urine NEGATIVE (NEGATIVE); Clarity Urine CLEAR (CLEAR); Color Urine YELLOW (YELLOW); Glucose Urine UA NEGATIVE (NEGATIVE); Ketones Urine NEGATIVE (NEGATIVE); Leukocyte Esterase Urine NEGATIVE (NEGATIVE); Nitrite Urine NEGATIVE (NEGATIVE); Protein Urine NEGATIVE (NEG/TRACE); Specific Gravity Urine >=1.030 (1.005-1.025); Urobilinogen Urine 0.2 EU/dL (0.2-1.0)
[2023-04-02 16:41] LABS: Urine Microscopic Indicated NO
== END 2023-04-02 15:14 | disposition home or self-care (01) ==
LOC: LAB 15:14
PROVIDERS: PCP Nurse Practitioner; Visit Provider Nurse Practitioner
DX: R31.29 Other microscopic hematuria (principal)
CPT/HCPCS: 74018; 81003

== ENCOUNTER 2023-08-05 09:16 | Outpatient (OUT) | payer OTHER, SELFPAY ==
[2023-08-05 09:53] LABS: Estimated Average Glucose 148 mg/dL; Glycohemoglobin A1C 6.8 % (4.5-6.2)
[2023-08-05 10:04] LABS: Anion Gap 14.4; BUN Creatinine Ratio 13.5; C Reactive Protein <0.50 mg/dL (<=0.50); Calcium 8.4 mg/dL (8.5-10.1); Carbon Dioxide 27.6 mmol/L (21.0-32.0); Chloride 100 mmol/L (98-107); Estimated GFR (African America >60 (>=60); Estimated GFR (Non-African Ame 59 (>=60); Glucose 225 mg/dL (74-106); Sodium 138 mmol/L (136-145); Uric Acid 5.9 mg/dL (3.5-7.2)
[2023-08-05 11:09] LABS: Erythrocyte Sedimentation Rate 48 mm/hr (<=20)
[2023-08-06 04:08] LABS: Antistreptolysin O Ab 220.8 IU/mL (0.0-200.0); Rheumatoid Factor (RF) <10.0 IU/mL (<14.0)
[2023-08-07 12:13] LABS: Antinuclear Antibodies, IFA Negative (.)
== END 2023-08-05 09:17 | disposition home or self-care (01) ==
LOC: LAB 09:18
PROVIDERS: PCP Nurse Practitioner; Visit Provider Nurse Practitioner
DX: M25.50 Pain in unspecified joint (principal); E11.9 Type 2 diabetes mellitus without complications
CPT/HCPCS: 36415; 80048; 83036; 84550; 85652; 86038; 86060; 86140; 86431

== ENCOUNTER 2023-11-20 07:56 | Outpatient (OUT) | payer OTHER, SELFPAY ==
--- OUTSIDE RECORDS SUMMARY | 2023-11-20 08:00 | XMS_ITS | CCD ---
Author Organization [facility] Inform ion Partnership [facility] Care Team Providers Care Char Puller Name Role Phone AICHHOLZ, AMMONIA NITRATE OPERATOR VANDANA Admitting Unavailable AICHHOLZ, AMMONIA NITRATE OPERATOR VANDANA Attending Unavailable AICHHOLZ, AMMONIA NITRATE OPERATOR VANDANA Primary Care Unavailable AICHHOLZ, AMMONIA NITRATE OPERATOR VANDANA Consulting Unavailable MADONNA CRUZ Consulting Unavailable AICHHOLZ, AMMONIA NITRATE OPERATOR VANDANA Admitting Unavailable AICHHOLZ, AMMONIA NITRATE OPERATOR VANDANA Attending Unavailable AICHHOLZ, AMMONIA NITRATE OPERATOR VANDANA Primary Care Unavailable AICHHOLZ, AMMONIA NITRATE OPERATOR VANDANA Consulting Unavailable AICHHOLZ, AMMONIA NITRATE OPERATOR VANDANA Admitting Unavailable AICHHOLZ, AMMONIA NITRATE OPERATOR VANDANA Attending Unavailable AICHHOLZ, AMMONIA NITRATE OPERATOR VANDAAN Primary Care Unavailable AICHHOLZ, AMMONIA NITRATE OPERATOR VANDANA Consulting Unavailable Helen GALLEGOS [facility] Primary Care Provider AICHHOLZ, VANDANA Attending Unavailable AICHHOLZ, VANDANA Attending Unavailable AICHHOLZ, VANDANA Attending Unavailable AICHHOLZ, VANDANA Attending Unavailable AICHHOLZ, VANDANA Attending Unavailable Allergies Allergy Classification Reported Allergen(s) Allergy Type Date of Onset Reaction(s) Facility (1 source) Amoxicillin Drug Allergy 0 [facility] Repository (4 sources) Amoxicillin Drug Allergy 8 Cough, Rash, Swelling, Wheezing [facility] Medications Current Medications Medication Drug Class(es) Dates Sig (Normalized) Sig (Original) [id number] 200 actuat albuterol 0.09 mg/actuat metered dose inhaler (5 sources) beta2-Adrenergic Agonist Start: 04-15-2023 take 1 puff(s) by inhalation every four to six hours Albuterol Sulfate Active 2 PUFF INHALATION EVERY 4-6 HOURS April 15, 2023 1:00am take 1 puff(s) by in halation every six hours for wheezing albuterol HFA 90 mcg/act inhaler Inhale 1 puff every 6 (six) hours if needed for wheezing 0 Active atorvastatin 40 mg oral tablet (5 sources) HMG-CoA Reductase Inhibitor Start: 04-15-2023 take 40 mg by mouth once daily Atorvastatin Active 40 MG PO Daily April 15, 2023 1:00am take 1 tablet by mouth in the mo rning atorvastatin (Lipitor) 40 MG tablet Take 1 tablet by mouth in the morning. 0 Active dicyclomine hydrochloride 20 mg oral tablet (2 sources) Anticholinergic Start: 04-15-2023 End: 05-20-2023 take 20 mg by mouth three times daily Dicyclomine Active 20 MG PO Three times daily 90 30 May 20, 2023 3:31pm doxycycline hyclate 100 mg oral tablet (1 source) Tetracycline-class Drug Start: 05-20-2023 Doxycycline Hyclate Active 200 MG PO May 20, 2023 12:00am empagliflozin 10 mg oral tablet (5 sources) Sodium-Glucose Cotransporter 2 Inhibitor Start: 04-15-2023 take 1 tablet by mouth once daily Empagliflozin (Jardiance) 10 mg tablet Active 10 MG PO Daily April 15, 2023 1:00am take 1 tablet by mouth in the mo rning empagliflozin (Jardiance) 25 MG Take 1 tablet by mouth in the morning. 0 Active 120 actuat fluticasone propionate 0.11 mg/actuat metered dose inhaler (4 sources) Corticosteroid take 1 puff(s) by inhalation in the morning fluticasone (Flovent) 110 MCG/ACT inhaler Inhale 1 puff in the morning and 1 puff before bedtime. Rinse mouth with water after use to reduce aftertaste and incidence of candidiasis. Do not swallow.. 0 Active glipiZIDE 10 mg oral tablet (5 sources) Sulfonylurea Start: take 10 mg by mouth twice daily Glipizide Active 10 MG PO Twice daily April 15, 2023 1:00am take 1 tablet by mouth in the mo rning glipiZIDE (Glucotrol) 10 MG tablet Take 1 tablet by mouth in the morning and 1 tablet in the evening. Take before meals. 0 Active hydroCHLOROthiazide 12.5 mg oral capsule (5 sources) Thiazide Diuretic Start: 04-15-2023 take 12.5 mg by mouth once daily Hydrochlorothiazide Active 12.5 MG PO Daily April 15, 2023 1:00am take 1 tablet by alberto th in the morning hydroCHLOROthiazide (HYDRODiuril) 25 MG tablet Take 1 tablet by mouth in the morning. 0 Active ibuprofen 200 mg oral tablet (4 sources) Nonsteroidal Anti-inflammatory Drug take 3 tablets by mouth every six hours as needed for pain ibuprofen 200 MG tablet Take 3 tablets by mouth every 6 (six) hours if needed for mild pain 0 Active ketoconazole 20 mg/ml topical cream (4 sources) Azole Antifungal ketoconazole (NIZOral) 2 % cream Apply 1 application topically in the morning. 0 Active metFORMIN hydrochloride 1000 mg oral tablet (5 sources) Biguanide Start: take 1000 mg by mouth once daily Metformin Active 1000 MG PO Daily April 15, 2023 1:00am take 1 tablet by mouth in the mo rning metFORMIN (Glucophage) 1000 MG tablet Take 1 tablet by mouth in the morning and 1 tablet in the evening. Take with meals. 0 Active omeprazole 20 mg oral tablet (4 sources) Proton Pump Inhibitor Start: 04-15-2023 take 20 mg by mouth once Omeprazole Active 20 MG PO Once April 15, 2023 1:00am Start: 03-31-2023 End: 04-30-2023 take 1 capsule by mouth before mealtime omeprazole (PriLOSEC) [address] capsule Indications: Generalized abdominal pain Take 1 capsule (20 mg) by mouth in the morning. Take before meals. Do not crush or chew.. 30 capsule 1 03/31/2023 04/30/2023 Active Semaglutide (1 source) Start: 04-15-2023 Semaglutide (O zempic) 1 mg/dose (4 mg/3 mL) pen injector Active MG SUBCUT April 15, 2023 1:00am semaglutide (Ozempic, 1 MG/DOSE,) 4 MG/3ML solution pen-injector (6 sources) Start: 03-31-2023 End: 04-28-2023 inject 1 mg by subcutaneous injection every week semaglutide (Ozempic, 1 MG/DOSE,) 4 MG/3ML solution pen-injector Indications: Type 2 diabetes mellitus with peripheral neuropathy (CMS/HCC) Inject 1 mg under the skin 1 (one) time per week for 28 days 1 each 3 03/31/2023 04/28/2023 Active End: 03-31-2023 inject 1 mg by subcutaneous injection every week semaglutide (Ozempic, 1 MG/DOSE,) 4 MG/3ML solution pen-injector Inject 1 mg under the skin 1 (one) time per week 0 03/31/2023 Discontinued (Reorder) inject 1 mg by subcu taneous injection every week semaglutide (Ozempic, 1 MG/DOSE,) 4 MG/3ML solution pen-injector Inject 1 mg under the skin 1 (one) time per week 0 Active valsartan 160 mg oral tablet (5 sources) Angiotensin 2 Receptor Sheila Start: 04-15-2023 take 160 mg by mouth once daily Valsartan Active 160 MG PO Daily April 15, 2023 1:00am take 1 tablet by mouth in the mo rning valsartan (Diovan) 160 MG tablet Take 1 tablet by mouth in the morning. 0 Active Problems Active Problems Problem Classification Problem Date Documented Date Episodic/Chronic Abdominal pain (9 sources) Generalized abdominal pain; Translations: [Generalized abdominal pain] Onset: 02-25-2023 02-25-2023 Episodic Asthma (4 sources) Asthma; Translations: [Unspecified asthma, uncomplicated] Onset: 03-31-2023 03-31-2023 Chronic Calculus of urinary tract (4 sources) History of calculus of kidney; Translations: [Personal history of urinary calculi] Onset: 03-31-2023 03-31-2023 Episodic Deficiency and other anemia (4 sources) Anemia; Translations: [Anemia, unspecified] Onset: 03-31-2023 03-31-2023 Episodic Diabetes mellitus with complications (10 sources) Type 2 diabetes mellitus with diabetic polyneuropathy; Translations: [Type 2 diabetes mellitus] Onset: 04-06-2022 Chronic Diabetes mellitus without complication (6 sources) Type 2 diabetes mellitus without complications; Translations: [Diabetes mellitus] Onset: 06-26-2021 Chronic Disorders of lipid metabolism (4 sources) Hyperlipidemia; Translations: [Hyperlipidemia, unspecified] Onset: 02-25-2023 02-25-2023 Chronic Disorders usually diagnosed in infancy, childhood, or adolescence (4 sources) Adult attention deficit hyperactivity disorder ; Translations: [Other specified behavioral and emotional disorders with onset usually occurring in childhood and adolescence] Onset: 03-31-2023 03-31-2023 Chronic Essential hypertension (4 sources) Benign hypertension; Translations: [Essential (primary) hypertension] Onset: 02-25-2023 02-25-2023 Chronic Genitourinary symptoms and ill-defined conditions (6 sources) Microscopic hematuria; Translations: [Other microscopic hematuria] Onset: 03-03-2023 03-03-2023 Episodic Mycoses (4 sources) Onychomycosis of toenails; Translations: [Tinea unguium] Onset: 03-31-2023 03-31-2023 Episodic Nausea and vomiting (2 sources) Nausea; Translations: [Nausea] 04-15-2023 Episodic Other non-traumatic joint disorders (1 source) Pain in right hip; Translations: [PAIN IN RIGHT HIP] Onset: 04-11-2022 Episodic Other nutritional; endocrine; and metabolic disorders (6 sources) Body mass index 40+ - severely obese; Translations: [Morbid (severe) obesity due to excess calories] Onset: 02-25-2023 02-25-2023 Chronic Other screening for suspected conditions (not mental disorders or infectious disease) (10 sources) Other specified abnormal findings of blood chemistry; Translations: [Encounter for screening for malignant neoplasm of prostate] Onset: 10-01-2021 Episodic Other skin disorders (4 sources) Seborrheic keratosis; Translations: [Other seborrheic keratosis] Onset: 03-31-2023 03-31-2023 Episodic Residual codes; unclassified (4 sources) Obstructive sleep apnea syndrome; Translations: [Obstructive sleep apnea (adult) (pediatric)] Onset: 02-25-2023 02-25-2023 Chronic Residual codes; unclassified (1 source) Sleep apnea; Translations: [Sleep apnea, unspecified] 04-15-2023 Chronic Residual codes; unclassified (4 sources) Edema of lower extremity; Translations: [Localized edema] Onset: 03-31-2023 03-31-2023 Episodic Past or Other Problems Problem Classification Problem Date Documented Da te Episodic/Chronic Deficiency and other anemia (1 source) Anemia, unspecified; Translations: [ANEMIA UNSPECIFIED] Onset: 06-29-2021 Episodic Results Test Name Value Interpretation Reference Range Facility TB UA (CLEAN/CATCH) MICROSC OPIC IF INDICATEon 04-02-2023 BILIRUBIN URINE Negative NEGATIVE [facility] BLOOD URINE Negative NEGATIVE [facility] Clarity (U) CLEAR CLEAR [facility] Color (U) YELLOW YELLOW [facility] GLUCOSE URINE UA Negative NEGATIVE mg/dL [facility] Interpretation and review of laboratory results Abnormal [facility] Ketones Ql (U) Negative NEGATIVE mg/dL [facility] Leukocyte esterase Test strip Ql (U) Negative NEGATIVE [facility] NITRITE URINE Negative NEGATIVE [facility] Health care pH (U) 5.0 [pH] 5.0 - 9.0 [facility] PROTEIN URINE Negative NEG/TRACE mg/dL [facility] SPECIFIC GRAVITY URINE >=1.030 Abnormal 1.005 - 1.025 [facility] URINE MICROSCOPIC INDICATED NO [facility] UROBILINOGEN URINE 0.2 EU/dL 0.2 - 1.0 EU/dL [facility] XR HIP RT 2 3V W PELVISon [...] MADONNA CRUZ Date: 2022-04-08 08:01 Normal [facility] CBC AUTO DIFFon 04-06-2022 BASO # 0.0 103/ul Normal 0.0-0.1 [facility] Comment on above: Performed By: #### P SASC, FETIBC, FERR #### [facility] [address] [address] [address] Thais Nava Basophils/100 WBC (Bld) 0.3 % Normal 0.2-2.0 [facility] Comment on above: Performed By: #### P SASC, FETIBC, FERR #### [facility] [address] [address] [address] Thais Nava EO # 0.1 103/ul Normal 0.0-0.7 [facility] Comment on above: Performed By: #### P SASC, FETIBC, FERR #### [facility] [address] [place] [address] Dr. Thais Nava Eosinophils/100 WBC (Bld) 1.1 % Normal 0.9-7.0 [facility] Comment on above: Performed By: #### P SASC, FETIBC, FERR #### [facility] [address] [place] [address] Dr. Thais Nava Erythrocyte distribution width (RBC) [Ratio] 14.5 % Normal 11.0-15.0 [facility] Comment on above: Performed By: #### P SASC, FETIBC, FERR #### [facility] [address] [place] [address] Dr. Thais Nava Hematocrit (Bld) [Volume fraction] 44.0 % Normal 42.0-54.0 [facility] Comment on above: Performed By: #### P SASC, FETIBC, FERR #### [facility] [address] [place] [address] Dr. Thais Nava Hemoglobin (Bld) [Mass/Vol] 14.5 g/dL Normal 14.0-18.0 [facility] Comment on above: Performed By: #### P SASC, FETIBC, FERR #### [facility] [address] [place] [address] Dr. Thais Nava IG # 0.03 10e3/ul Normal 0.00-0.03 [facility] Comment on above: Performed By: #### P SASC, FETIBC, FERR #### [facility] [address] [place] [address] Dr. Thais Nava IG % 0.4 % Normal 0.0-0.5 [facility] Comment on above: Performed By: #### P SASC, FETIBC, FERR #### [facility] [address] [place] [address] Dr. Thais Nava LYMPH # 2.0 103/ul Normal 1.2-3.8 [facility] Comment on above: Performed By: #### P SASC, FETIBC, FERR #### [facility] [address] [place] [address] Dr. Thais Nava Lymphocytes/100 WBC (Bld) 26.2 % Normal 20.5-60.0 [facility] Comment on above: Performed By: #### P SASC, FETIBC, FERR #### [facility] [address] [place] [address] Dr. Thais Nava MANUAL DIFF REQ NO Normal [facility] Comment on above: Performed By: #### P SASC, FETIBC, FERR #### [facility] [address] [place] [address] Dr. hTais Nava MCH (RBC) [Entitic mass] 28.2 pg Normal 25.9-34.0 [facility] Comment on above: Performed By: #### P SASC, FETIBC, FERR #### [facility] [address] [place] [address] Dr. Thais Nava MCHC (RBC) [Mass/Vol] 33.0 g/dL Normal 29.9-35.2 [facility] Comment on above: Performed By: #### P SASC, FETIBC, FERR #### [facility] [address] [place] [address] Dr. Thais Nava MCV (RBC) [Entitic vol] 85.6 fL Normal 80.0-94.0 [facility] Comment on above: Performed By: #### P SASC, FETIBC, FERR #### [facility] [address] [place] [address] Dr. Thais Nava MONO # 0.5 103/ul Normal 0.3-0.8 [facility] Comment on above: Performed By: #### P SASC, FETIBC, FERR #### [facility] [address] [place] [address] Dr. Thais Nava Monocytes/100 WBC (Bld) 6.3 % Normal 1.7-12.0 [facility] Comment on above: Performed By: #### P SASC, FETIBC, FERR #### [facility] [address] [place] [address] Dr. Thais Nava NEUT # 5.0 103/ul Normal 1.4-6.5 [facility] Comment on above: Performed By: #### P SASC, FETIBC, FERR #### [facility] [address] [address] [address] Thais Nava Neutrophils/100 WBC (Bld) 65.7 % Normal 43.0-75.0 [facility] Comment on above: Performed By: #### P SASC, FETIBC, FERR #### [facility] [address] [address] [address] Thais Nava Platelet mean volume (Bld) [Entitic vol] 9.7 fL Normal 9.5-13.5 [facility] Comment on above: Performed By: #### P SASC, FETIBC, FERR #### [facility] [address] [place] [address] Dr. Thais Nava PLT 279 103/ul Normal 150-450 [facility] Comment on above: Performed By: #### P SASC, FETIBC, FERR #### [facility] [address] [place] [address] Dr. Thais Nava RBC 5.14 106/ul Normal 4.70-6.10 [facility] Comment on above: Performed By: #### P SASC, FETIBC, FERR #### [facility] [address] [place] [address] Dr. Thais Nava WBC 7.6 103/ul Normal 4.0-11.0 [facility] Comment on above: Performed By: #### P SASC, FETIBC, FERR #### [facility] [address] [place] [address] Dr. Thais Nava FERRITINon 04-06-2022 Ferritin [Mass/Vol] 709.0 ng/mL Critically high 26.0-388.0 [facility] Comment on above: Performed By: #### F ERR #### [facility] [address] [place] [address] Dr. Thais Nava GLYCOHEMOGLOBIN A1Con 2022 ADA RECOMMENDATION SEE BELOW Normal [facility] Comment on above: Result Comment: ADA RECOMMENDED LIMIT 4.0 - 6.0 ADA THERAPEUTIC TARGET < 7.0 ACTION SUGGESTED > 7.0 Performed By: #### A 1C #### [facility] [address] [place] [address] Dr. Thais Nava Glucose [Mass/Vol] 157 mg/dL Normal [facility] Comment on above: Performed By: #### A 1C #### [facility] [address] [place] [address] Dr. Thais Nava HbA1c (Bld) [Mass fraction] 7.1 % Critically high 4.5-6.2 [facility] Comment on above: Performed By: #### A 1C #### [facility] [address] [place] [address] Dr. Thais Nava PROF CHEM 8 (BAS METB)on Anion gap [Moles/Vol] 11.8 mmol/L Normal [facility] Comment on above: Performed By: #### B MP #### [facility] [address] [place] [address] Dr. Thais Nava Calcium [Mass/Vol] 9.7 mg/dL Normal 8.5-10.1 [facility] Comment on above: Performed By: #### B MP #### [facility] [address] [place] [address] Dr. Thais Nava Chloride [Moles/Vol] 99 mmol/L Normal 98-107 [facility] Comment on above: Performed By: #### B MP #### [facility] [address] [place] [address] Dr. Thais Nava CO2 [Moles/Vol] 32.4 mmol/L Critically high 21.0-32.0 [facility] Comment on above: Performed By: #### B MP #### [facility] [address] [place] [address] Dr. Thais Nava Creatinine [Mass/Vol] 1.00 mg/dL Normal 0.70-1.30 [facility] Comment on above: Performed By: #### B MP #### [facility] [address] [place] [address] Dr. Thais Nava EGFR-AF BOTSWANAN >60 Normal >=60 [facility] Comment on above: Performed By: #### B MP #### [facility] [address] [address] [address] Thais Nava EGFR-NON AF BOTSWANAN >60 Normal >=60 [facility] Comment on above: Performed By: #### B MP #### [facility] [address] [address] [address] Thais Nava Glucose [Mass/Vol] 177 mg/dL Critically high 74-106 [facility] Comment on above: Performed By: #### B MP #### [facility] [address] [address] [address] Thais Nava Potassium [Moles/Vol] 4.2 mmol/L Normal 3.5-5.1 [facility] Comment on above: Performed By: #### B MP #### [facility] [address] [address] [address] Thais Nava Sodium [Moles/Vol] 139 mmol/L Normal 136-145 [facility] Comment on above: Performed By: #### B MP #### [facility] [address] [address] [address] Thais Nava Urea nitrogen [Mass/Vol] 22.0 mg/dL Critically high 7.0-18.0 [facility] Comment on above: Performed By: #### B MP #### [facility] [address] [address] [address] Thais Nava Urea nitrogen/Creatinine [Mass ratio] 22.0 mg/mg Normal [facility] Comment on above: Performed By: #### B MP #### [facility] [address] [address] [address] Thais Nava TRANSFERRINon 10-02-2021 Transferrin [Mass/Vol] 245 mg/dL Normal 177-329 [facility] Comment on above: Performed By: #### P SASC, FETIBC, FERR #### [facility] [address] [address] [address] Thais Nava CBC AUTO DIFFon 10-01-2021 BASO # 0.0 103/ul Normal 0.0-0.1 [facility] Comment on above: Performed By: #### P SASC, FETIBC, FERR #### [facility] [address] [place] [address] Dr. Thais Nava Basophils/100 WBC (Bld) 0.4 % Normal 0.2-2.0 [facility] Comment on above: Performed By: #### P SASC, FETIBC, FERR #### [facility] [address] [place] [address] Dr. Thais Nava EO # 0.1 103/ul Normal 0.0-0.7 [facility] Comment on above: Performed By: #### P SASC, FETIBC, FERR #### [facility] [address] [place] [address] Dr. Thais Nava Eosinophils/100 WBC (Bld) 1.8 % Normal 0.9-7.0 [facility] Comment on above: Performed By: #### P SASC, FETIBC, FERR #### [facility] [address] [place] [address] Dr. Thais Nava Erythrocyte distribution width (RBC) [Ratio] 14.1 % Normal 11.0-15.0 [facility] Comment on above: Performed By: #### P SASC, FETIBC, FERR #### [facility] [address] [place] [address] Dr. Thais Nava Hematocrit (Bld) [Volume fraction] 40.3 % Critically low 42.0-54.0 [facility] Comment on above: Performed By: #### P SASC, FETIBC, FERR #### [facility] [address] [place] [address] Dr. Thais Nava Hemoglobin (Bld) [Mass/Vol] 13.2 g/dL Critically low 14.0-18.0 [facility] Comment on above: Performed By: #### P SASC, FETIBC, FERR #### [facility] [address] [place] [address] Dr. Thais Nava IG # 0.03 10e3/ul Normal 0.00-0.03 [facility] Comment on above: Performed By: #### P SASC, FETIBC, FERR #### [facility] [address] [place] [address] Dr. Thais Nava IG % 0.4 % Normal 0.0-0.5 [facility] Comment on above: Performed By: #### P SASC, FETIBC, FERR #### [facility] [address] [place] [address] Dr. Thais Nava LYMPH # 1.8 103/ul Normal 1.2-3.8 [facility] Comment on above: Performed By: #### P SASC, FETIBC, FERR #### [facility] [address] [place] [address] Dr. Thais Nava Lymphocytes/100 WBC (Bld) 25.0 % Normal 20.5-60.0 [facility] Comment on above: Performed By: #### P SASC, FETIBC, FERR #### [facility] [address] [place] [address] Dr. Thais Nava MANUAL DIFF REQ NO Normal [facility] Comment on above: Performed By: #### P SASC, FETIBC, FERR #### [facility] [address] [place] [address] Dr. Thais Nava MCH (RBC) [Entitic mass] 28.8 pg Normal 25.9-34.0 [facility] Comment on above: Performed By: #### P SASC, FETIBC, FERR #### [facility] [address] [place] [address] Dr. Thais Nava MCHC (RBC) [Mass/Vol] 32.8 g/dL Normal 29.9-35.2 [facility] Comment on above: Performed By: #### P SASC, FETIBC, FERR #### [facility] [address] [place] [address] Dr. Thais Nava MCV (RBC) [Entitic vol] 88.0 fL Normal 80.0-94.0 [facility] Comment on above: Performed By: #### P SASC, FETIBC, FERR #### [facility] [address] [place] [address] Dr. Thais Nava MONO # 0.4 103/ul Normal 0.3-0.8 [facility] Comment on above: Performed By: #### P SASC, FETIBC, FERR #### [facility] [address] [place] [address] Dr. Thais Nava Monocytes/100 WBC (Bld) 5.6 % Normal 1.7-12.0 [facility] Comment on above: Performed By: #### P SASC, FETIBC, FERR #### [facility] [address] [place] [address] Dr. Thais Nava NEUT # 4.9 103/ul Normal 1.4-6.5 [facility] Comment on above: Performed By: #### P SASC, FETIBC, FERR #### [facility] [address] [place] [address] Dr. Thais Nava Neutrophils/100 WBC (Bld) 66.8 % Normal 43.0-75.0 [facility] Comment on above: Performed By: #### P SASC, FETIBC, FERR #### [facility] [address] [place] [address] Dr. Thais Nava Platelet mean volume (Bld) [Entitic vol] 10.8 fL Normal 9.5-13.5 [facility] Comment on above: Performed By: #### P SASC, FETIBC, FERR #### [facility] [address] [place] [address] Dr. Thais Nava PLT 205 103/ul Normal 150-450 [facility] Comment on above: Performed By: #### P SASC, FETIBC, FERR #### [facility] [address] [place] [address] Dr. Thais Nava RBC 4.58 106/ul Critically low 4.70-6.10 The [facility] Comment on above: Performed By: #### P SASC, FETIBC, FERR #### [facility] [address] [place] [address] Dr. Thais Nava WBC 7.3 103/ul Normal 4.0-11.0 [facility] Comment on above: Performed By: #### P SASC, FETIBC, FERR #### [facility] [address] [place] [address] Dr. Thais Nava CRPon 10-01-2021 CRP [Mass/Vol] mg/L Normal <=1.0 The [facility] Comment on above: Performed By: #### P SASC, FETIBC, FERR #### [facility] [address] [place] [address] Dr. Thais Nava FERRITINon 10-01-2021 Ferritin [Mass/Vol] 631.0 ng/mL Critically high 26.0-388.0 [facility] Comment on above: Performed By: #### P SASC, FETIBC, FERR #### [facility] [address] [place] [address] Dr. Thais Nava GLYCOHEMOGLOBIN A1Con 2021 ADA RECOMMENDATION SEE BELOW Normal [facility] Comment on above: Result Comment: ADA RECOMMENDED LIMIT 4.0 - 6.0 ADA THERAPEUTIC TARGET < 7.0 ACTION SUGGESTED > 7.0 Performed By: #### A 1C #### [facility] [address] [place] [address] Dr. Thais Nava Glucose [Mass/Vol] 200 mg/dL Normal [facility] Comment on above: Performed By: #### A 1C #### [facility] [address] [place] [address] Dr. Thais Nava HbA1c (Bld) [Mass fraction] 8.6 % Critically high 4.5-6.2 [facility] Comment on above: Performed By: #### A 1C #### [facility] [address] [place] [address] Dr. Thais Nava IRON AND TIBCon 10-01-2021 % SATURATION 24.1 % Normal [facility] Comment on above: Performed By: #### P SASC, FETIBC, FERR #### [facility] [address] [place] [address] Dr. Thais Nava Iron [Mass/Vol] 68.0 ug/dL Normal 65.0-175.0 [facility] Comment on above: Performed By: #### P SASC, FETIBC, FERR #### [facility] [address] [place] [address] Dr. Thais Nava TIBC DIRECT 282.0 ug/dL Normal 250.0-450.0 [facility] Comment on above: Performed By: #### P SASC, FETIBC, FERR #### [facility] [address] [address] [address] Thais Nava PROF 14(COMP METB)on 022 Albumin [Mass/Vol] 3.3 g/dL Critically low 3.4-5.0 [facility] Comment on above: Performed By: #### P SASC, FETIBC, FERR #### [facility] [address] [place] [address] Dr. Thais Nava Albumin/Globulin [Mass ratio] 0.9 {ratio} Normal [facility] Comment on above: Performed By: #### P SASC, FETIBC, FERR #### [facility] [address] [place] [address] Dr. Thais Nava ALP [Catalytic activity/Vol] 69 U/L Normal 46-116 [facility] Comment on above: Performed By: #### P SASC, FETIBC, FERR #### [facility] [address] [place] [address] Dr. Thais Nava ALT [Catalytic activity/Vol] 34 U/L Normal 16-63 [facility] Comment on above: Performed By: #### P SASC, FETIBC, FERR #### [facility] [address] [place] [address] Dr. Thais Nava Anion gap [Moles/Vol] 16.8 mmol/L Normal [facility] Comment on above: Performed By: #### P SASC, FETIBC, FERR #### [facility] [address] [place] [address] Dr. Thais Nava AST [Catalytic activity/Vol] 20 U/L Normal 15-37 [facility] Comment on above: Performed By: #### P SASC, FETIBC, FERR #### [facility] [address] [place] [address] Dr. Thais Nava Bilirubin [Mass/Vol] 0.4 mg/dL Normal 0.2-1.0 [facility] Comment on above: Performed By: #### P SASC, FETIBC, FERR #### [facility] [address] [place] [address] Dr. Thais aNva Calcium [Mass/Vol] 8.7 mg/dL Normal 8.5-10.1 [facility] Comment on above: Performed By: #### P SASC, FETIBC, FERR #### [facility] [address] [place] [address] Dr. Thais Nava Chloride [Moles/Vol] 102 mmol/L Normal 98-107 [facility] Comment on above: Performed By: #### P SASC, FETIBC, FERR #### [facility] [address] [place] [address] Dr. Thais Nava CO2 [Moles/Vol] 23.5 mmol/L Normal 21.0-32.0 [facility] Comment on above: Performed By: #### P SASC, FETIBC, FERR #### [facility] [address] [place] [address] Dr. Thais Nava Creatinine [Mass/Vol] 1.07 mg/dL Normal 0.70-1.30 [facility] Comment on above: Performed By: #### P SASC, FETIBC, FERR #### [facility] [address] [place] [address] Dr. Thais Nava EGFR-AF BOTSWANAN >60 Normal >=60 [facility] Comment on above: Performed By: #### P SASC, FETIBC, FERR #### [facility] [address] [place] [address] Dr. Thais Nava EGFR-NON AF BOTSWANAN >60 Normal >=60 [facility] Comment on above: Performed By: #### P SASC, FETIBC, FERR #### [facility] [address] [place] [address] Dr. Thais Nava Globulin (S) [Mass/Vol] 3.8 g/dL Normal [facility] Comment on above: Performed By: #### P SASC, FETIBC, FERR #### [facility] [address] [address] [address] Thais Nava Glucose [Mass/Vol] 317 mg/dL Critically high 74-106 T [facility] Comment on above: Performed By: #### P SASC, FETIBC, FERR #### [facility] [address] [place] [address] Dr. Thais Nava Potassium [Moles/Vol] 4.3 mmol/L Normal 3.5-5.1 [facility] Comment on above: Performed By: #### P SASC, FETIBC, FERR #### [facility] [address] [place] [address] Dr. Thais Nava Protein [Mass/Vol] 7.1 g/dL Normal 6.4-8.2 [facility] Comment on above: Performed By: #### P SASC, FETIBC, FERR #### [facility] [address] [place] [address] Dr. Thais Nava Sodium [Moles/Vol] 138 mmol/L Normal 136-145 [facility] Comment on above: Performed By: #### P SASC, FETIBC, FERR #### [facility] [address] [place] [address] Dr. Thais Nava Urea nitrogen [Mass/Vol] 16.0 mg/dL Normal 7.0-18.0 [facility] Comment on above: Performed By: #### P SASC, FETIBC, FERR #### [facility] [address] [place] [address] Dr. Thais Nava Urea nitrogen/Creatinine [Mass ratio] 15.0 mg/mg Normal [facility] Comment on above: Performed By: #### P SASC, FETIBC, FERR #### [facility] [address] [address] [address] Thais Nava SED RATE [facility] 2021 SED RATE 31 mm/hr Critically high <=20 [facility] Comment on above: Performed By: #### S EDR #### [facility] [address] [place] [address] Dr. Thais Nava VITAMIN B12on 06-27-2021 Cobalamin (Vitamin B12) [Mass/Vol] 481 pg/mL Normal 232-1245 [facility] Comment on above: Performed By: #### V B12LC #### [facility] [address] [place] [address] Dr. Thais Nava CBC AUTO DIFFon 06-26-2021 BASO # 0.0 103/ul Normal 0.0-0.1 [facility] Comment on above: Performed By: #### C BC #### [facility] [address] [place] [address] Dr. Thais Nava Basophils/100 WBC (Bld) 0.4 % Normal 0.2-2.0 [facility] Comment on above: Performed By: #### C BC #### [facility] [address] [place] [address] Dr. Thais Nava EO # 0.1 103/ul Normal 0.0-0.7 [facility] Comment on above: Performed By: #### C BC #### [facility] [address] [place] [address] Dr. Thais Nava Eosinophils/100 WBC (Bld) 1.5 % Normal 0.9-7.0 [facility] Comment on above: Performed By: #### C BC #### [facility] [address] [place] [address] Dr. Thais Nava Erythrocyte distribution width (RBC) [Ratio] 14.7 % Normal 11.0-15.0 [facility] Comment on above: Performed By: #### C BC #### [facility] [address] [place] [address] Dr. Thais Nava Hematocrit (Bld) [Volume fraction] 44.1 % Normal 42.0-54.0 [facility] Comment on above: Performed By: #### C BC #### [facility] [address] [place] [address] Dr. Thais Nava Hemoglobin (Bld) [Mass/Vol] 14.3 g/dL Normal 14.0-18.0 [facility] Comment on above: Performed By: #### C BC #### [facility] [address] [place] [address] Dr. Thais Nava IG # 0.03 10e3/ul Normal 0.00-0.03 [facility] Comment on above: Performed By: #### C BC #### [facility] [address] [place] [address] Dr. Thais Nava IG % 0.3 % Normal 0.0-0.5 [facility] Comment on above: Performed By: #### C BC #### [facility] [address] [place] [address] Dr. Thais Nava LYMPH # 2.3 103/ul Normal 1.2-3.8 [facility] Comment on above: Performed By: #### C BC #### [facility] [address] [place] [address] Dr. Thais Nava Lymphocytes/100 WBC (Bld) 24.9 % Normal 20.5-60.0 [facility] Comment on above: Performed By: #### C BC #### [facility] [address] [place] [address] Dr. Thais Nava MANUAL DIFF REQ NO Normal [facility] Comment on above: Performed By: #### C BC #### [facility] [address] [place] [address] Dr. Thais Nava MCH (RBC) [Entitic mass] 28.7 pg Normal 25.9-34.0 [facility] Comment on above: Performed By: #### C BC #### [facility] [address] [place] [address] Dr. Thais Nava MCHC (RBC) [Mass/Vol] 32.4 g/dL Normal 29.9-35.2 [facility] Comment on above: Performed By: #### C BC #### [facility] [address] [place] [address] Dr. Thais Nava MCV (RBC) [Entitic vol] 88.4 fL Normal 80.0-94.0 [facility] Comment on above: Performed By: #### C BC #### [facility] [address] [place] [address] Dr. Thais Nava MONO # 0.6 103/ul Normal 0.3-0.8 [facility] Comment on above: Performed By: #### C BC #### [facility] [address] [place] [address] Dr. Thais Nava Monocytes/100 WBC (Bld) 6.7 % Normal 1.7-12.0 [facility] Comment on above: Performed By: #### C BC #### [facility] [address] [place] [address] Dr. Thais Nava NEUT # 6.2 103/ul Normal 1.4-6.5 [facility] Comment on above: Performed By: #### C BC #### [facility] [address] [place] [address] Dr. Thais Nava Neutrophils/100 WBC (Bld) 66.2 % Normal 43.0-75.0 [facility] Comment on above: Performed By: #### C BC #### [facility] [address] [place] [address] Dr. Thais Nava Platelet mean volume (Bld) [Entitic vol] 10.5 fL Normal 9.5-13.5 [facility] Comment on above: Performed By: #### C BC #### [facility] [address] [place] [address] Dr. Thais Nava PLT 262 103/ul Normal 150-450 [facility] Comment on above: Performed By: #### C BC #### [facility] [address] [place] [address] Dr. Thais Nava RBC 4.99 106/ul Normal 4.70-6.10 [facility] Comment on above: Performed By: #### C BC #### [facility] [address] [place] [address] Dr. Thais Nava WBC 9.4 103/ul Normal 4.0-11.0 [facility] Comment on above: Performed By: #### C BC #### [facility] [address] [address] [address] Thais Nava FERRITINon 06-26-2021 Ferritin [Mass/Vol] 665.0 ng/mL Critically high 26.0-388.0 [facility] Comment on above: Performed By: #### P SASC, FETIBC, FERR #### [facility] [address] [place] [address] Dr. Thais Nava GLYCOHEMOGLOBIN A1Con 2021 ADA RECOMMENDATION SEE BELOW Normal [facility] Comment on above: Result Comment: ADA RECOMMENDED LIMIT 4.0 - 6.0 ADA THERAPEUTIC TARGET < 7.0 ACTION SUGGESTED > 7.0 Performed By: #### P SASC, FETIBC, FERR #### [facility] [address] [place] [address] Dr. Thais Nava Glucose [Mass/Vol] 194 mg/dL Normal [facility] Comment on above: Performed By: #### P SASC, FETIBC, FERR #### [facility] [address] [address] [address] Thais Nava HbA1c (Bld) [Mass fraction] 8.4 % Critically high 4.5-6.2 [facility] Comment on above: Performed By: #### P SASC, FETIBC, FERR #### [facility] [address] [place] [address] Dr. Thais Nava IRONon 06-26-2021 Iron [Mass/Vol] 85.0 ug/dL Normal 65.0-175.0 [facility] Comment on above: Performed By: #### P SASC, FETIBC, FERR #### [facility] [address] [address] [address] Thais Nava Vital Signs Date Time Vital Sign Value Performing Clinician Facility 05-20-2023 15:25-0400 Body height 175.26 cm [facility] 05-20-2023 15:25-0400 Body mass index (BMI) [Ratio] 44.9 kg/m2 [facility] 05-20-2023 15:25-0400 Body weight 137.89 kg [facility] 04-15-2023 16:15-0500 Body height 175.26 cm [facility] 04-15-2023 16:15-0500 Body mass index (BMI) [Ratio] 44.9 kg/m2 [facility] 04-15-2023 16:15-0500 Body weight 137.89 kg [facility] 04-15-2023 16:15-0500 Diastolic blood pressure 74 mm[Hg] [facility] 04-15-2023 16:15-0500 Heart rate 104 /min [facility] 04-15-2023 16:15-0500 Systolic blood pressure 146 mm[Hg] [facility] 03-31-2023 15:18-0500 Body height 172.7 cm Vandana Almanza SPA TECHNICIAN Work Phone: [facility] 03-31-2023 15:18-0500 Body mass index (BMI) [Ratio] 46.22 kg/m2 Vandana Almanza SPA TECHNICIAN Work Phone: [facility] 03-31-2023 15:18-0500 Body temperature 97.3 [degF] Vandana Almanza SPA TECHNICIAN Work Phone: [facility] 03-31-2023 15:18-0500 Body weight 137.89 kg Vandana Almanza SPA TECHNICIAN Work Phone: [facility] 03-31-2023 15:18-0500 Diastolic blood pressure 86 mm[Hg] Vandana Almanza SPA TECHNICIAN Work Phone: [facility] 03-31-2023 15:18-0500 Heart rate 100 /min Vandana Archie SPA TECHNICIAN Work Phone: [facility] 03-31-2023 15:18-0500 Respiratory rate 17 /min Vandana Archie SPA TECHNICIAN Work Phone: [facility] 03-31-2023 15:18-0500 SaO2% (BldA) [Mass fraction] 96 % Vandana Almanza SPA TECHNICIAN Work Phone: [facility] 03-31-2023 15:18-0500 Systolic blood pressure 144 mm[Hg] Vandana Aichholz SPA TECHNICIAN Work Phone: [facility] Encounters Encounter Date Encounter Type Care Provider Facility Start: 11-18-2023 End: 11-18-2023 ambulatory VANDANA AICHHOLZ Not Available Start: 07-15-2023 End: 07-15-2023 ambulatory VANDANA AICHHOLZ Not Available Start: 05-20-2023 End: 05-20-2023 ambulatory [facility] Work Phone: Start: 05-20-2023 End: 05-20-2023 Patient encounter procedure [facility] Physician [facility] Gastroenterology Work Phone: Start: 05-12-2023 End: 05-12-2023 ambulatory VANDANA AICHHOLZ Not Available Start: 04-15-2023 End: 04-15-2023 Patient encounter procedure [facility] Physician [facility] Gastroenterology Work Phone: Start: 04-02-2023 Clinisync Result Encounter Vandana Aichholz SPA TECHNICIAN Work Phone: [facility] External Department Unsolicited Start: 04-02-2023 Clinisync Result Encounter Vandana Aichholz SPA TECHNICIAN Work Phone: [facility] External Department Unsolicited Start: 03-31-2023 End: 03-31-2023 Office outpatient visit 25 minutes Vandana Kavithaz SPA TECHNICIAN Work Phone: [facility] Comment on above: Type 2 diabetes antonette itus with peripheral neuropathy (CMS/HCC) (Primary Dx); BMI 45.0-49.9, adult (CMS/HCC); Microscopic hematuria; Generalized abdominal pain Start: 03-31-2023 End: 03-31-2023 ambulatory VANDANA AICHHOLZ Not Available Start: 03-31-2023 Bamboo flowsheet Vandana Aichholz SPA TECHNICIAN Work Phone: [facility] Start: 03-31-2023 Bamboo flowsheet Vandana Aichholz SPA TECHNICIAN Work Phone: [facility] Start: 02-25-2023 End: 02-25-2023 ambulatory VANDANA MARYPamBONG Not Available Start: 04-06-2022 End: 04-07-2022 ambulatory KHURRAM IRENEBONG Facility:[facility] Start: 10-01-2021 End: 10-02-2021 ambulatory AMMONIA NITRATE OPERATOR VANDANA IRENEJAKEFranky Facility:[facility] Start: 06-26-2021 End: 06-27-2021 ambulatory AMMONIA NITRATE OPERATOR VANDANA IRENEJAKEFranky Facility:[facility] Procedures Date Procedure Procedure Detail Performing Clinician Start: 04-02-2023 TB UA (CLEAN/CATCH) MICROSCOPIC IF INDICATE Vandana Archie SPA TECHNICIAN Work Phone: Start: 10-01-2021 PSA screening KHURRAM IRENEBONG Comment on above: Performed By: #### P SASC, FETIBC, FERR #### [facility] [address] [place] [address] Dr. Thais Nava Plan of Treatment Date Care Activity Detail Author Start: 08-06-2024 Glaucoma screening Diabetes: R etinopathy Screening [facility] Start: 03-01-2024 Urine screening for protein Diabetes: Urine Protein Screening [facility] Start: 08-30-2023 Screening for malign ant neoplasm of colon [facility] Start: 05-31-2023 Hemoglobin A1c measurement Diabetes: Hemoglobin A1C [facility] Start: 05-12-2023 End: 05-12-2023 Patient encounter procedure 05/12/2023 6:00 PM EDT Office Visit [facility] [address] [place] [id number] Vandana Almanza NP [address] [place] [id number] [facility] Start: 03-31-2023 End: 03-31-2023 Patient encounter procedure 03/31/2023 3:20 PM EST Office Visit [facility] [address] [place] [id number] Vandana Almanza NP [address] [place] [address] Arrived [facility] Comment on above: Arrived Start: 03-09-2023 Hemoglobin A1c measurement Diabetes: Hemoglobin A1C [facility] Start: 10-18-2022 Influenza vaccination Influenza Vacc ine (#1) [facility] Start: 02-03-2022 Urine screening for protein Diabetes: Urine Protein Screening [facility] Start: 1965 Screening for malign ant neoplasm of colon [facility] Immunizations Immunization Date Immunization Notes Care Provider Fa cility 06-13-2020 pneumococcal polysaccharide vaccine, 23 valent Vandana Aichholz SPA TECHNICIAN Work Phone: [facility] 11-24-2019 Influenza, injectabl e, Madin Bridgett Canine Kidney, preservative free, quadrivalent Vandana Aichholz SPA TECHNICIAN Work Phone: [facility] 11-24-2019 influenza virus vacc ine, unspecified formulation Vandana Aichholz SPA TECHNICIAN Work Phone: [facility] 11-12-2019 influenza, seasonal, injectable Vandana Aichholz SPA TECHNICIAN Work Phone: [facility] 02-04-2019 Influenza, injectabl e, Madin [place] Canine Kidney, preservative free, quadrivalent Vandana Aichholz SPA TECHNICIAN Work Phone: [facility] Payers Date Payer Category Payer Unknown [employer] [id number] 2022-Present [phone] [address] [address] [place] [address] [id number] 2022 Unknown [id number] 1965 Unknown [id number] 3 1963 Unknown [id number] 3 1963 Unknown [id number] 3 1963 Unknown [id number] 59 1963 Unknown [id number] 59 1963 Unknown [id number] 59 1963 Unknown [id number] 59 1963 Unknown [id number] 59 1959 Unknown [id number] 1959 Unknown [id number] Social History Date Type Detail Facility Start: 02-21-2023 End: 04-15-2023 Tobacco smoking status [facility] Ex-smoker [facility] End: 02-18-1996 History of tobacco use Current smoker [facility] End: 02-18-1996 History of tobacco use Cigarette Smoker [facility] Start: 02-18-2023 End: 02-21-2023 Cigarettes smoked current (pack per day) - Reported 0.1 [facility] Start: 02-18-2023 End: 03-31-2023 Humiliation, Afraid, Rape, and Kick questionnaire [HARK] [facility] Within the last year , have you been afraid of your partner or ex-partner? Patient refused [facility] Within the last year , have you been humiliated or emotionally abused in other ways by your partner or ex-partner? No [facility] Are you now , , , , never or living with a partner? [facility] How often to you hav e a drink containing alcohol? 2-4 times a month [facility] How many standard dr inks containing alcohol do you have on a typical day? 1 or 2 [facility] How often do you hav e 6 or more drinks on 1 occasion? Never [facility] Do you feel stress - tense, restless, nervous, or anxious, or unable to sleep at night because your mind is troubled all the time - these days [OSQ] To some extent [facility] (I/We) worried wheth er (my/our) food would run out before (I/we) got money to buy more. Never true [facility] Start: 1965 Sex Assigned At Not on file [facility] Start: 03-31-2023 Alcohol intake Ex-drinker (finding) [facility] Start: 03-31-2023 Alcohol Comment caffine and alcohol: occasionally [facility] Start: 1965 Sex Assigned At Male [facility] History of Present illness Narrative 03-31-2023 Vandana Almanza NP - 03/31/2023 4:00 PM Daniela Almanza NP - 03/31/2023 3:59 PM Daniela Almanza NP - 03/31/2023 3:59 PM PUMA HARMAN - 03/31/2023 3:20 PM EST Note Date & Type Note Facility 03-31-2023 History of Presen t illness Narrative Associated Problem(s): Generalized abdominal pain Has upcoming GI appt Nausea now, possibly related to med side effects? Possible gastritis? Stressors in last year with mother passing a way Will trial addition of omeprazole Fu in 6 weeks Associated Problem(s): Microscopic hematuria Repeat urine as well as KUB Associated Problem(s): Type 2 diabetes mellitus with peripheral neuropathy (CMS/HCC) Having some episodes of hypoglycemia, explained to patient likely inadequate protein intake, ideas given No med changes Again reviewed how meds work, why important to try to eat Pt stated has trouble remember to take afternoon medication at times. Pt is needing a refill on his ozempic Images from the original note were not included. Pita Harden is a 57 y.o. male presents with chief complaint of No chief complaint on file. HPI: Nausea: many days, no vomiting, has appt with GI week of 04/08 Diabetes He presents for his follow-up diabetic visit. He has type 2 diabetes mellitus. No MedicAlert identification noted. His disease course has been fluctuating. Hypoglycemia symptoms include nervousness/anxiousness. Pertinent negatives for hypoglycemia include no dizziness, seizures or tremors. (nausea) Pertinent negatives for diabetes include no polydipsia, no polyphagia, no polyuria and no visual change. There are no hypoglycemic complications. Symptoms are stable. There are no diabetic complications. Risk factors for coronary artery disease include dyslipidemia, male sex, obesity, sedentary lifestyle and hypertension. Current diabetic treatment includes oral agent (triple therapy) (ozempic). He is compliant with treatment most of the time. His weight is fluctuating minimally. He is following a generally unhealthy diet. He rarely participates in exercise. His overall blood glucose range is 140-180 mg/dl. An CHRIS inhibitor/angiotensin II receptor sheila is being taken. SUBJECTIVE: MEDICATIONS: Current Outpatient Medications Medication Instructions albuterol HFA 90 mcg/act inhaler 1 puff, Inhalation, Every 6 hours PRN atorvastatin (Lipitor) 40 MG tablet 1 tablet, Oral, Daily empagliflozin (Jardiance) 25 MG 1 tablet, Oral, Daily fluticasone (Flovent) 110 MCG/ACT inhaler 1 puff, Inhalation, 2 times daily RT, Rinse mouth with water after use to reduce aftertaste and incidence of candidiasis. Do not swallow. glipiZIDE (Glucotrol) 10 MG tablet 1 tablet, Oral, 2 times daily before meals hydroCHLOROthiazide (HYDRODiuril) 25 MG tablet 1 tablet, Oral, Daily ibuprofen 200 MG tablet 3 tablets, Oral, Every 6 hours PRN ketoconazole (NIZOral) 2 % cream 1 application , Topical, Daily metFORMIN (Glucophage) 1000 MG tablet 1 tablet, Oral, 2 times daily with meals Ozempic (1 MG/DOSE) 1 mg, Subcutaneous, Weekly valsartan (Diovan) 160 MG tablet 1 tablet, Oral, Daily ALLERGIES: Allergies Allergen Reactions Amoxicillin Cough, Rash, Swelling and Wheezing REVIEW OF SYMPTOMS: Review of Systems Constitutional: Negative for activity change, appetite change and unexpected weight change. HENT: Negative for ear pain, nosebleeds, sneezing, trouble swallowing and voice change. Eyes: Negative for pain, discharge and visual disturbance. Respiratory: Negative for apnea, chest tightness and wheezing. Cardiovascular: Negative for leg swelling. Gastrointestinal: Positive for abdominal distention and nausea. Negative for blood in stool, constipation and diarrhea. Genitourinary: Positive for hematuria. Negative for decreased urine volume, difficulty urinating and dysuria. Skin: Negative for color change. Neurological: Negative for dizziness, tremors and seizures. Psychiatric/Behavioral: Negative for agitation, decreased concentration, hallucinations, self-injury and suicidal ideas. The patient is nervous/anxious. Hematological: Negative for adenopathy. Does not bruise/bleed easily. Endocrine: Negative for cold intolerance, heat intolerance, polydipsia, polyphagia and polyuria. Allergic/Immunologic: Negative for environmental allergies and food allergies. PAST MEDICAL HISTORY Past Medical History: Diagnosis Date Anemia Asthma in adult without complication, unspecified asthma severity, unspecified whether persistent ([facility]) Attention deficit disorder (ADD) in adult Diagnosed 13 years ago. Pt was on ritalin and wellbutrin. Pt states he still has symptoms, but since he switched jobs he has no issue. No new issues since last visit. Elevated ferritin History of kidney stones HLD (hyperlipidemia) ([facility]) 02/25/2023 NO issues at this time. Pt takes meds regularly. Previous Hx as below No issues at this time. Takes his meds daily. Previous Hx as below No issues today. Previous Hx as below No issues with his lipitor. Takes his meds daily. Hypertension, benign ([facility]) Lazy eye, left Still seeing Optho. Previous Hx as below Pt states optho is helping him. No issues. Previous hx Pt had corrective surgery which did not completely fix the issue. It is better. Pt sees Optho. No changes since last visit. Lower extremity edema Morbid obesity with body mass index (BMI) of 40.0 to 49.9 ([facility]) Onychomycosis of toenail L great toe SK (seborrheic keratosis) Pt states he has a spot on his L islam that comes up. Its raised and itchy. Pt states it rubs on his glasses. He states he picks at it. Derm is wanting a biopsy. He is schedule for this. Sleep apnea, obstructive Type 2 diabetes mellitus with peripheral neuropathy (CMS/HCC) Past Surgical History: Procedure Laterality Date ANKLE SURGERY SOL/Dr. Saenz Right flexor hallucis longus longus tendon transfer Excision of right Achilles tendon Excision of calcaneal spur, right Application of short leg splint, right CATARACT EXTRACTION Left 08/06/2020 CATARACT EXTRACTION Right 08/06/2020 EYE SURGERY Left for corrective for lazy eye OTHER SURGICAL HISTORY Left Leg lesion needed fixed calcified material: family history includes Asthma in his brother and father; Cancer in his brother, father, mother, and paternal grandfather; Diabetes in his father; Hyperlipidemia in his brother, father, maternal grandmother, mother, and paternal grandfather; Hypertension in his father and mother; Pancreatic cancer in an other family member. OBJECTIVE: Visit Vitals BP 144/86 (BP Location: Left arm, Patient Position: Sitting, BP Cuff Size: Large adult long) Pulse 100 Temp 97.3 F (Temporal) Resp 17 Ht 5' 8 Wt 304 lb SpO2 96% BMI 46.22 kg/m Smoking Status Former BSA 2.57 m Physical Exam Vitals reviewed. Constitutional: Appearance: Normal appearance. HENT: Head: Normocephalic. Right Ear: External ear normal. Left Ear: External ear normal. Nose: Nose normal. Mouth/Throat: Mouth: Mucous membranes are moist. Pharynx: Oropharynx is clear. Eyes: Extraocular Movements: Extraocular movements intact. Conjunctiva/sclera: Conjunctivae normal. Cardiovascular: Rate and Rhythm: Normal rate and regular rhythm. Pulses: Normal pulses. Heart sounds: Normal heart sounds. Pulmonary: Effort: Pulmonary effort is normal. Breath sounds: Normal breath sounds. Abdominal: General: Bowel sounds are normal. There is no distension. Palpations: Abdomen is soft. There is no mass. Tenderness: There is no abdominal tenderness. There is no guarding. Musculoskeletal: Cervical back: Neck supple. Skin: General: Skin is warm and dry. Capillary Refill: Capillary refill takes 2 to 3 seconds. Neurological: General: No focal deficit present. Mental Status: He is alert. Psychiatric: Mood and Affect: Mood normal. Behavior: Behavior normal. Thought Content: Thought content normal. Judgment: Judgment normal. ASSESSMENT AND PLAN: No follow-ups on file. Problem List Items Addressed This Visit Type 2 diabetes mellitus with peripheral neuropathy (CMS/HCC) - Primary Having some episodes of hypoglycemia, explained to patient likely inadequate protein intake, ideas given No med changes Again reviewed how meds work, why important to try to eat Relevant Medications semaglutide (Ozempic, 1 MG/DOSE,) 4 MG/3ML solution pen-injector BMI 45.0-49.9, adult (CMS/HCC) Generalized abdominal pain Has upcoming GI appt Nausea now, possibly related to med side effects? Possible gastritis? Stressors in last year with mother passing a way Will trial addition of omeprazole Fu in 6 weeks Relevant Medications omeprazole (PriLOSEC) [address] capsule Microscopic hematuria Repeat urine as well as KUB documented in this encounter [facility] Evaluation note Note Date & Type Note Facility Evaluation note Diagnosis Type 2 diabetes mellitus with peripheral neuropathy (CMS/HCC)- Primary BMI 45.0-49.9, adult (CMS/HCC) Microscopic hematuria Generalized abdominal pain Abdominal pain, generalized documented in this encounter [facility] Evaluation note Note Date & Type Note Facility Evaluation note Diagnosis Onset Date Abdominal pain acute Nausea acute Abdominal pain [facility] Work Phone: Summary Purpose Family History No Family History Records FoundNo Family History Records Found Advance Directives No Advanced Directives Records Found Advance Directive Response Recorded Date/ Time Advance Directives No March 12, 2023 1:00pm Chief Complaint and Reason for Visit Chief Complaint abdominal pain/Vandana Serrano referred 1 month follow up Reason for Visit Abdominal pain Nausea Abdominal pain Additional Source Comments (unrecognized sect ion and content) No Status Records FoundNo Status Records Found INFORMATION SOURCE (unrecogn ized section and content) DATE CREATED AUTHOR 04/12/2022 [facility] DATE CREATED AUTHOR AUTHOR'S ORGANIZ ATION 11/20/2023 [facility] [employer] Care Teams (unrecognized sec tion and content) Char Puller Relationship Specialty Start Date End Date Shaikh Cervantes MD [address] [place] [address] PCP - General Internal Medicine 03/31/23 Char Puller Relationship Specialty Start Date End Date Shaikh Cervantes MD [address] [place] [address] PCP - General Internal Medicine 03/31/23 Char Puller Relationship Specialty Start Date End Date Shaikh Cervantes MD [address] [place] [address] PCP - General Internal Medicine 03/31/23 Team Status: Active Member Role Status Dates Vandana Almanza Primary Care Provider Active Team Status: Inactive Member Role Status Dates Vandana Almanza Primary Care Provider Active Sta rt: April 15, 2023 End: April 15, 2023 Lorenzo Garcia APRN Attending Provider Active Start: April 15, 2023 End: April 15, 2023 Team Status: Inactive Member Role Status Dates Vandana Almanza Primary Care Provider Active Sta rt: May 20, 2023 End: May 20, 2023 Lorenzo Garcia APRN Attending Provider Active Start: May 20, 2023 End: May 20, 2023 Goals (unrecognized section and content) Goals may be documented in a n alternate section FOR RECORDS PERTAINING TO PATIENTS WHO ARE [...] BE BASED ON THE PRIMARY CLINICAL RECORDS. FAD ? [facility]. provides no warranty or guarantee of the accuracy or completeness of information in this document.
[2023-11-20 09:53] LABS: Estimated Average Glucose 171 mg/dL; Glycohemoglobin A1C 7.6 % (4.5-6.2)
[2023-11-20 10:06] LABS: Prostate Specific Antigen Scrn 1.26 ng/mL (<=4.00)
== END 2023-11-20 07:57 | disposition home or self-care (01) ==
LOC: LAB 07:57
PROVIDERS: PCP Nurse Practitioner; Visit Provider Nurse Practitioner
DX: E11.9 Type 2 diabetes mellitus without complications (principal); Z12.5 Encounter for screening for malignant neoplasm of prostate
CPT/HCPCS: 36415; 83036; G0103

== ENCOUNTER 2024-04-07 08:45 | Outpatient (OUT) | payer OTHER, SELFPAY ==
[2024-04-07 09:02] LABS: Basophils Percent Auto 0.4 % (0.2-2.0); Eosinophils Absolute Auto 0.2 10^3/uL (0.0-0.7); Eosinophils Percent Auto 2.7 % (0.9-7.0); Hematocrit 43.7 % (42.0-54.0); Hemoglobin 14.8 g/dL (14.0-18.0); Immature Granulocytes Abs Auto 0.02 10^3/uL (0.00-0.03); Immature Granulocytes Pct Auto 0.3 % (0.0-0.5); Lymphocytes Absolute Auto 2.1 10^3/uL (1.2-3.8); Lymphocytes Percent Auto 30.1 % (20.5-60.0); Mean Corpuscular HGB Conc 33.9 g/dL (29.9-35.2); Mean Corpuscular Hemoglobin 29.3 pg (25.9-34.0); Mean Corpuscular Volume 86.5 fL (80.0-94.0); Mean Platelet Volume 10.2 fL (9.5-13.5); Monocytes Absolute Auto 0.4 10^3/uL (0.3-0.8); Monocytes Percent Auto 6.2 % (1.7-12.0); Neutrophils Absolute Auto 4.2 10^3/uL (1.4-6.5); Neutrophils Percent Auto 60.3 % (43.0-75.0); Platelet Count 219 10^3/uL (150-450); Red Blood Count 5.05 10^6/uL (4.70-6.10); Red Cell Distribution Width 13.4 % (11.0-15.0)
--- OUTSIDE RECORDS SUMMARY | 2024-04-07 09:04 | XMS_ITS | CCD ---
Author Organization [facility] Care Team Providers Care Candy Cutter Hand Name Role Phone AICHHOLZ, SNAPPER ON VANDANA Admitting Unavailable AICHHOLZ, SNAPPER ON VANDANA Attending Unavailable AICHHOLZ, SNAPPER ON VANDANA Primary Care Unavailable AICHHOLZ, SNAPPER ON VANDANA Consulting Unavailable MADONNA CRUZ Consulting Unavailable AICHHOLZ, SNAPPER ON VANDANA Admitting Unavailable AICHHOLZ, SNAPPER ON VANDANA Attending Unavailable AICHHOLZ, SNAPPER ON VANDANA Primary Care Unavailable AICHHOLZ, SNAPPER ON VANDANA Consulting Unavailable AICHHOLZ, SNAPPER ON VANDANA Admitting Unavailable AICHHOLZ, SNAPPER ON VANDANA Attending Unavailable AICHHOLZ, SNAPPER ON VANDANA Primary Care Unavailable AICHHOLZ, SNAPPER ON VANDANA Consulting Unavailable Helen GALLEGOS, Primary Care Provider Shira GALLEGOS, Justino Primary Care Provider Aichholz EXTRACTOR PULLER, Vandana Unavailable Helen GALLEGOS, Primary Care Provider AICHHOLZ, VANDANA Attending Unavailable AICHHOLZ, VANDANA Attending Unavailable AICHHOLZ, VANDANA Attending Unavailable AICHHOLZ, VANDANA Attending Unavailable AICHHOLZ, VANDANA Attending Unavailable Allergies Allergy Classification Reported Allergen(s) Allergy Type Date of Onset Reaction(s) Facility (1 source) Amoxicillin Drug Allergy 0 [facility] Repository (19 sources) Amoxicillin Drug Allergy 8 Cough, Rash, Swelling, Wheezing [facility] Medications Current Medications Medication Drug Class(es) Dates Sig (Normalized) Sig (Original) [id number] 200 actuat albuterol 0.09 mg/actuat metered dose inhaler (20 sources) beta2-Adrenergic Agonist Start: 04-15-2023 take 1 puff(s) by inhalation every four to six hours Albuterol Sulfate Active 2 PUFF INHALATION EVERY 4-6 HOURS April 15, 2023 1:00am take 1 puff(s) by in halation every six hours for wheezing albuterol HFA 90 mcg/act inhaler Inhale 1 puff every 6 (six) hours if needed for wheezing Active aspirin 81 mg delayed release oral tablet (9 sources) Platelet Aggregation Inhibitor, Nonsteroidal Anti-inflammatory Drug Start: 12-31-2023 End: 06-30-2024 take 1 tablet by mouth once daily aspirin 81 MG EC tablet Indications: Hypertension, benign (CMS/HCC) , Type 2 diabetes mellitus without complication, without long-term current use of insulin (CMS/HCC) Take 1 tablet (81 mg) by mouth Daily Take 81 mg by mouth Daily 90 tablet 3 04/01/2024 06/30/2024 Active Blood Glucose Monitoring Suppl (True Metrix Go Glucose Meter) w/Device kit (4 sources) Start: 04-01-2024 End: 04-01-2025 Blood Glucose Monitoring Suppl (True Metrix Go Glucose Meter) w/Device kit Indications: Type 2 diabetes mellitus without complication, without long-term current use of insulin (CMS/HCC) 1 each Daily 1 kit 04/01/2024 04/01/2025 Active End: 04-01-[address] (True Metrix Go Glucose Meter) w/Device kit 1 each Daily 04/01/2024 Discontinued (Reorder) cetirizine hydrochloride 10 mg oral tablet (8 sources) Histamine-1 Receptor Antagonist Start: 12-31-2023 End: 06-30-2024 take 1 tablet by mouth once daily cetirizine (ZyrTEC) 10 MG tablet Indications: Environmental and seasonal allergies Take 1 tablet (10 mg) by mouth Daily 90 tablet 1 04/01/2024 06/30/2024 Active Continuous Glucose Sensor (FreeStyle Jean 14 Day Sensor) misc (3 sources) Start: 12-31-2023 End: 03-23-2024 Continuous Glucose Sensor (FreeStyle Jean 14 Day Sensor) misc Indications: Type 2 diabetes mellitus with peripheral neuropathy (CMS/HCC) 1 each by Other route Daily 6 each 3 12/31/2023 03/23/2024 Active dicyclomine hydrochloride 20 mg oral tablet (17 sources) Anticholinergic Start: 04-15-2023 End: 05-20-2023 take 1 tablet by mouth in the morning, then take 1 tablet by mouth in the evening, then take 1 tablet by mouth at bedtime dicyclomine (Bentyl) 20 MG tablet Take 20 mg by mouth in the morning and 20 mg in the evening and 20 mg before bedtime. 04/15/2023 Active doxycycline hyclate 100 mg oral tablet (1 source) Tetracycline-class Drug Start: 05-20-2023 Doxycycline Hyclate Active 200 MG PO May 20, 2023 12:00am fluticasone propionate 0.05 mg/actuat metered dose nasal spray (20 sources) Corticosteroid Start: 12-31-2023 End: 06-30-2024 take 2 spray(s) nasal route once daily fluticasone (Flonase) 50 MCG/ACT nasal spray Indications: Environmental and seasonal allergies Administer 2 sprays into each nostril Daily Shake gently. Before first use, prime pump. After use, clean tip and replace cap. 48 g 1 04/01/2024 06/30/2024 Active take 1 puff(s) by in halation in the morning fluticasone (Flovent) 110 MCG/ACT inhale r Inhale 1 puff in the morning and 1 puff before bedtime. Rinse mouth with water after use to reduce aftertaste and incidence of candidiasis. Do not swallow.. Active hydroCHLOROthiazide 25 mg oral tablet (20 sources) Thiazide Diuretic Start: 10-13-2023 End: 06-30-2024 take 1 tablet by mouth once daily hydroCHLOROthiazide (HYDRODiuril) 25 MG tablet Indications: Hypertension, benign (CMS/HCC) , Lower extremity edema Take 1 tablet (25 mg) by mouth Daily 90 tablet 1 04/01/2024 06/30/2024 Active Start: 04-15-2023 take 12.5 mg by mout h once daily Hydrochlorothiazide Active 12.5 MG PO Daily April 15, 2023 1:00am take 1 tablet by alberto th in the morning hydroCHLOROthiazide (HYDRODiuril) 25 MG tablet Take 1 tablet by mouth in the morning. 0 Active ketoconazole 20 mg/ml topical cream (19 sources) Azole Antifungal ketoconazole (NIZOral) 2 % cream Apply 1 application topically in the morning. Active metFORMIN hydrochloride 1000 mg oral tablet (20 sources) Biguanide Start: 04-15-19 End: 07-01-19 take 1 tablet by mouth in the morning metFORMIN (Glucophage) 1000 MG tablet Indications: Type 2 diabetes mellitus without complication, without long-term current use of insulin (CMS/HCC) Take 1 tablet (1,000 mg) by mouth in the morning and 1 tablet (1,000 mg) in the evening. Take with meals. 180 tablet 1 04/01/2024 06/30/2024 Active Semaglutide (1 source) Start: 04-15-19 Semaglutide (Ozempic) 1 mg/dose (4 mg/3 mL) pen injector Active MG SUBCUT April 15, 2023 1:00am semaglutide (Ozempic, 1 MG/DOSE,) 4 MG/3ML solution pen-injector (20 sources) Start: 04-01-19 End: 06-25-19 inject 1 mg by subcutaneous injection every week semaglutide (Ozempic, 1 MG/DOSE,) 4 MG/3ML solution pen-injector Indications: Type 2 diabetes mellitus with peripheral neuropathy (CMS/HCC) Inject 1 mg under the skin 1 (one) time per week 12 mL 1 04/01/2024 06/24/2024 Active Start: 12-31-2023 End: 04-01-2024 inject 1 mg by subcutaneous injection every week semaglutide (Ozempic, 1 MG/DOSE,) 4 MG/3ML solution pen-injector Indications: Type 2 diabetes mellitus with peripheral neuropathy (CMS/HCC) Inject 1 mg under the skin 1 (one) time per week 12 mL 1 12/31/2023 04/01/2024 Discontinued (Reorder) Start: 12-31-2023 inject 1 mg by subcu taneous injection every week semaglutide (Ozempic, 1 MG/DOSE,) 4 MG/3ML solution pen-injector Indications: Type 2 diabetes mellitus with peripheral neuropathy (CMS/HCC) Inject 1 mg under the skin 1 (one) time per week 12 mL 1 12/31/2023 Active Start: 12-31-2023 End: 03-24-2024 inject 1 mg by subcutaneous injection every week semaglutide (Ozempic, 1 MG/DOSE,) 4 MG/3ML solution pen-injector Indications: Type 2 diabetes mellitus with peripheral neuropathy (CMS/HCC) Inject 1 mg under the skin 1 (one) time per week 12 mL 1 12/31/2023 03/24/2024 Active Start: 11-18-2023 End: 12-31-2023 inject 1 mg by subcutaneous injection every week semaglutide (Ozempic, 1 MG/DOSE,) 4 MG/3ML solution pen-injector Indications: Type 2 diabetes mellitus with peripheral neuropathy (CMS/HCC) Inject 1 mg under the skin 1 (one) time per week for 28 days 3 mL 3 11/18/2023 12/31/2023 Discontinued (Reorder) Start: 11-18-2023 End: 12-16-2023 inject 1 mg by subcutaneous injection every week semaglutide (Ozempic, 1 MG/DOSE,) 4 MG/3ML solution pen-injector Indications: Type 2 diabetes mellitus with peripheral neuropathy (CMS/HCC) Inject 1 mg under the skin 1 (one) time per week for 28 days 3 mL 3 11/18/2023 12/16/2023 Active Start: 10-16-2023 End: 11-18-2023 inject 1 mg by subcutaneous injection every week semaglutide (Ozempic, 1 MG/DOSE,) 4 MG/3ML solution pen-injector Indications: Type 2 diabetes mellitus with peripheral neuropathy (CMS/HCC) Inject 1 mg under the skin 1 (one) time per week for 28 days 3 mL 3 10/16/2023 11/18/2023 Discontinued (Reorder) Start: 10-16-2023 inject 1 mg by subcu taneous injection every week semaglutide (Ozempic, 1 MG/DOSE,) 4 MG/3ML solution pen-injector Indications: Type 2 diabetes mellitus with peripheral neuropathy (CMS/HCC) Inject 1 mg under the skin 1 (one) time per week for 28 days 3 mL 3 10/16/2023 Active Start: 10-16-2023 End: 11-13-2023 inject 1 mg by subcutaneous injection every week semaglutide (Ozempic, 1 MG/DOSE,) 4 MG/3ML solution pen-injector Indications: Type 2 diabetes mellitus with peripheral neuropathy (CMS/HCC) Inject 1 mg under the skin 1 (one) time per week for 28 days 3 mL 3 10/16/2023 11/13/2023 Active Start: 03-31-2023 End: 10-16-2023 inject 1 mg by subcutaneous injection every week semaglutide (Ozempic, 1 MG/DOSE,) 4 MG/3ML solution pen-injector Indications: Type 2 diabetes mellitus with peripheral neuropathy (CMS/HCC) Inject 1 mg under the skin 1 (one) time per week for 28 days 1 each 3 03/31/2023 10/16/2023 Discontinued Start: 03-31-2023 End: 04-28-2023 inject 1 mg [...] 1 (one) time per week 0 Active Completed/Discontinued Medications Medication Drug Class(es) Dates Sig (Normalized) Sig (Original) atorvastatin 40 mg oral tablet (20 sources) HMG-CoA Reductase Inhibitor Start: 07-15-2023 End: 06-30-2024 take 1 tablet by mouth in the evening atorvastatin (Lipitor) 40 MG tablet Indications: Mixed hyperlipidemia (CMS/HCC) Take 1 tablet (40 mg) by mouth in the evening 90 tablet 12/30/2023 04/01/2024 Discontinued (Reorder) Start: 04-15-2023 take 40 mg by mouth once daily Atorvastatin Active 40 MG PO Daily April 15, 2023 1:00am take 1 tablet by alberto th in the morning atorvastatin (Lipitor) 40 MG tablet Take 1 tablet by mouth in the morning. 0 Active azithromycin 250 mg oral tablet (5 sources) Macrolide Antimicrobial Start: 08-07-2023 End: 11-18-2023 azithromycin (Zithromax) 250 MG tablet Indications: Elevated streptolysin O antibody level 2 pills day #1, 1 pill day #2-#5 6 tablet 08/07/2023 11/18/2023 Discontinued (Therapy completed) Continuous Blood Gluc Sensor (FreeStyle Jean 14 Day Sensor) [facility] (11 sources) Start: 04-28-2023 End: 12-31-2023 Continuous Blood Gluc Sensor (FreeStyle Jean 14 Day Sensor) [facility] 04/28/2023 12/31/2023 Discontinued (Reorder) Start: 04-28-2023 Continuous Blo od Gluc Sensor (FreeStyle Jean 14 Day Sensor) [facility] 04/28/2023 Active empagliflozin 25 mg oral tablet (11 sources) Sodium-Glucose Cotransporter 2 Inhibitor Start: 10-13-2023 End: 01-11-2024 take 1 tablet by mouth once daily empagliflozin (Jardiance) 25 MG Indications: Type 2 diabetes mellitus without complication, without long-term current use of insulin (CMS/HCC) Take 1 tablet (25 mg) by mouth Daily 90 tablet 10/13/2023 11/18/2023 Discontinued (Cost of medication) Start: 04-15-2023 take 1 tablet by alberto th once daily Empagliflozin (Jardiance) 10 mg tablet Active 10 MG PO Daily April 15, 2023 1:00am glipiZIDE 10 mg oral tablet (20 sources) Sulfonylurea Start: 07-15-2023 End: 06-30-2024 take 1 tablet by mouth in the morning glipiZIDE (Glucotrol) 10 MG tablet Indications: Type 2 diabetes mellitus without complication, without long-term current use of insulin (CMS/HCC) Take 1 tablet (10 mg) by mouth in the morning and 1 tablet (10 mg) in the evening. Take before meals. 180 tablet 10/13/2023 04/01/2024 Discontinued (Reorder) Start: 04-15-2023 take 10 mg by mouth twice darlene y Glipizide Active 10 MG PO Twice daily April 15, 2023 1:00am take 1 tablet by alberto th in the morning glipiZIDE (Glucotrol) 10 MG tablet Take 1 tablet by mouth in the morning and 1 tablet in the evening. Take before meals. 0 Active ibuprofen 200 mg oral tablet (9 sources) Nonsteroidal Anti-inflammatory Drug End: 11-18-2023 take 3 tablets by mouth every six hours as needed for pain ibuprofen 200 MG tablet Take 3 tablets by mouth every 6 (six) hours if needed for mild pain 11/18/2023 Discontinued (Therapy completed) meloxicam 15 mg oral tablet (16 sources) Nonsteroidal Anti-inflammatory Drug Start: 11-18-2023 End: 06-30-2024 take 1 tablet by mouth once daily meloxicam (Mobic) 15 MG tablet Indications: Primary osteoarthritis involving multiple joints Take 1 tablet (15 mg) by mouth Daily 90 tablet 1 02/15/2024 04/01/2024 Discontinued (Reorder) omeprazole 20 mg delayed release oral capsule (14 sources) Proton Pump Inhibitor Start: 05-28-2023 End: 12-31-2023 take 1 capsule by mouth before mealtime omeprazole (PriLOSEC) [address] capsule Indications: Generalized abdominal pain Take 1 capsule (20 mg) by mouth in the morning. Take before meals. 30 capsule 3 05/28/2023 12/31/2023 Discontinued (Therapy completed) Start: 04-15-2023 take 20 mg by mouth once Omepr azole Active 20 MG PO Once April 15, 2023 1:00am Start: 03-31-2023 End: 04-30-2023 take 1 capsule by mouth before mealtime omeprazole (PriLOSEC) [address] capsule Indications: Generalized abdominal pain Take 1 capsule (20 mg) by mouth in the morning. Take before meals. Do not crush or chew.. 30 capsule 1 03/31/2023 04/30/2023 Active valsartan 160 mg oral tablet (20 sources) Angiotensin 2 Receptor Sheila Start: 07-15-2023 End: 06-30-2024 take 1 tablet by mouth once daily valsartan (Diovan) 160 MG tablet Indications: Hypertension, benign (CMS/HCC) Take 1 tablet (160 mg) by mouth Daily 90 tablet 1 12/31/2023 04/01/2024 Discontinued (Reorder) Start: 04-15-2023 take 160 mg by mouth once darlene y Valsartan Active 160 MG PO Daily April 15, 2023 1:00am take 1 tablet by alberto th in the morning valsartan (Diovan) 160 MG tablet Take 1 tablet by mouth in the morning. 0 Active Problems Active Problems Problem Classification Problem Date Documented Date Episodic/Chronic Asthma (19 sources) Asthma; Translations: [Unspecified asthma, uncomplicated] Onset: 03-31-2023 03-31-2023 Chronic Diabetes mellitus with complications (20 sources) Type 2 diabetes mellitus with diabetic polyneuropathy; Translations: [Type 2 diabetes mellitus] Onset: 04-06-2022 Chronic Diabetes mellitus without complication (20 sources) Type 2 diabetes mellitus without complications; Translations: [Diabetes mellitus] Onset: 06-26-2021 Chronic Disorders of lipid metabolism (20 sources) Hyperlipidemia; Translations: [Hyperlipidemia, unspecified] Onset: 02-25-2023 02-25-2023 Chronic Disorders usually diagnosed in infancy, childhood, or adolescence (19 sources) Adult attention deficit hyperactivity disorder ; Translations: [Other specified behavioral and emotional disorders with onset usually occurring in childhood and adolescence] Onset: 03-31-2023 03-31-2023 Chronic Esophageal disorders (9 sources) Gastroesophageal reflux disease without esophagitis; Translations: [Gastro-esophageal reflux disease without esophagitis] Onset: 12-31-2023 12-31-2023 Chronic Essential hypertension (20 sources) Benign hypertension; Translations: [Essential (primary) hypertension] Onset: 02-25-2023 02-25-2023 Chronic Nausea and vomiting (2 sources) Nausea; Translations: [Nausea] 04-15-2023 Episodic Osteoarthritis (19 sources) Degenerative joint disease involving multiple joints; Translations: [Primary generalized (osteo)arthritis] Onset: 11-18-2023 11-18-2023 Chronic Other non-traumatic joint disorders (1 source) Pain in right hip; Translations: [PAIN IN RIGHT HIP] Onset: 04-11-2022 Episodic Other nutritional; endocrine; and metabolic disorders (20 sources) Body mass index 40+ - severely obese; Translations: [Morbid (severe) obesity due to excess calories] Onset: 02-25-2023 02-25-2023 Chronic Other nutritional; endocrine; and metabolic disorders (5 sources) Obesity caused by energy imbalance; Translations: [Morbid (severe) obesity due to excess calories] Onset: 04-01-2024 04-01-2024 Chronic Other upper respiratory disease (11 sources) Allergic disposition; Translations: [Other allergic rhinitis] Onset: 12-31-2023 12-31-2023 Chronic Residual codes; unclassified (20 sources) Obstructive sleep apnea syndrome; Translations: [Obstructive sleep apnea (adult) (pediatric)] Onset: 02-25-2023 02-25-2023 Chronic Residual codes; unclassified (1 source) Sleep apnea; Translations: [Sleep apnea, unspecified] 04-15-2023 Chronic Residual codes; unclassified (20 sources) Edema of lower extremity; Translations: [Localized edema] Onset: 03-31-2023 03-31-2023 Episodic Past or Other Problems Problem Classification Problem Date Documented Date Episodic/Chronic Abdominal pain (20 sources) Generalized abdominal pain; Translations: [Generalized abdominal pain] Onset: 02-25-2023 02-25-2023 Episodic Calculus of urinary tract (19 sources) History of calculus of kidney; Translations: [Personal history of urinary calculi] Onset: 03-31-2023 03-31-2023 Episodic Deficiency and other anemia (1 source) Anemia, unspecified; Translations: [ANEMIA UNSPECIFIED] Onset: 06-29-2021 Episodic Deficiency and other anemia (19 sources) Anemia; Translations: [Anemia, unspecified] Onset: 03-31-2023 03-31-2023 Episodic Genitourinary symptoms and ill-defined conditions (20 sources) Microscopic hematuria; Translations: [Other microscopic hematuria] Onset: 03-03-2023 03-03-2023 Episodic Immunizations and screening for infectious disease (15 sources) Anti-streptolysin titer abnormal; Translations: [Other specified abnormal immunological findings in serum] Onset: 08-07-2023 08-07-2023 Episodic Mycoses (19 sources) Onychomycosis of toenails; Translations: [Tinea unguium] Onset: 03-31-2023 03-31-2023 Episodic Other non-traumatic joint disorders (15 sources) Joint pain; Translations: [Pain in unspecified joint] Onset: 07-15-2023 07-15-2023 Episodic Other screening for suspected conditions (not mental disorders or infectious disease) (20 sources) Other specified abnormal findings of blood chemistry; Translations: [Encounter for screening for malignant neoplasm of prostate] Onset: 10-01-2021 Episodic Other skin disorders (19 sources) Seborrheic keratosis; Translations: [Other seborrheic keratosis] Onset: 03-31-2023 03-31-2023 Episodic Other upper respiratory infections (15 sources) Acute maxillary sinusitis; Translations: [Acute maxillary sinusitis, unspecified] Onset: 05-12-2023 Resolved: 11-18-2023 11-18-2023 Episodic Results Test Name Value Interpretation Reference Range Facility HbA1c (Bld) [Mass fraction]o n 04-01-2024 Interpretation and review of laboratory results [facility] 04-01-2024 HbA1c (Bld) [Mass fraction] 10 % [facility] MLR HEMOGLOBIN A1Con 024 Glucose [Mass/Vol] 171 mg/dL [facility] HbA1c (Bld) [Mass fraction] 7.6 % High 4.5 - 6.2 % [facility] Comment on above: ADA RECOMMENDED LIMI T 4.0 - 6.0 ADA THERAPEUTIC TARGET < 7.0 ACTION SUGGESTED > 7.0 Interpretation and review of laboratory results Abnormal [facility] UA (CLEAN/CATCH) MICROSC OPIC IF INDICATEon 04-02-2023 BILIRUBIN URINE Negative NEGATIVE [facility]care BLOOD URINE Negative NEGATIVE [facility] Clarity (U) CLEAR CLEAR [facility] re Color (U) YELLOW YELLOW [facility] GLUCOSE URINE UA Negative NEGATIVE mg/dL [facility] Interpretation and review of laboratory results Abnormal [facility] Ketones Ql (U) Negative NEGATIVE mg/dL [facility] Leukocyte esterase Test strip Ql (U) Negative NEGATIVE [facility] NITRITE URINE Negative NEGATIVE [facility] care pH (U) 5.0 [pH] 5.0 - 9.0 [facility] PROTEIN URINE Negative NEG/TRACE mg/dL [facility] SPECIFIC GRAVITY URINE >=1.030 Abnormal 1.005 - 1.025 [facility] URINE MICROSCOPIC INDICATED NO [facility] UROBILINOGEN URINE 0.2 EU/dL 0.2 - 1.0 EU/dL [facility] XR HIP RT [...] MADONNA CRUZ Date: 2022-04-08 08:01 Normal [facility] CBC AUTO DIFFon 04-06-2022 BASO # 0.0 103/ul Normal 0.0-0.1 [facility] Comment on above: Performed By: #### P SASC, FETIBC, FERR #### [facility] Laboratory [address] [place] [address] Dr. Thais Nava Basophils/100 WBC (Bld) 0.3 % Normal 0.2-2.0 [facility] Comment on above: Performed By: #### P SASC, FETIBC, FERR #### [facility] [address] [place] [address] Dr. Thais Nava EO # 0.1 103/ul Normal 0.0-0.7 [facility] Comment on above: Performed By: #### P SASC, FETIBC, FERR #### [facility] [address] [place] [address] Dr. Thais Nava Eosinophils/100 WBC (Bld) 1.1 % Normal 0.9-7.0 [facility] Comment on above: Performed By: #### P SASC, FETIBC, FERR #### [facility] [address] [place] [address] Dr. Thais Nava Erythrocyte distribution width (RBC) [Ratio] 14.5 % Normal 11.0-15.0 [facility] Comment on above: Performed By: #### P SASC, FETIBC, FERR #### [facility] [address] [place] [address] Dr. Thais Nava Hematocrit (Bld) [Volume fraction] 44.0 % Normal 42.0-54.0 [facility] Comment on above: Performed By: #### P SASC, FETIBC, FERR #### [facility] [address] [place] [address] Dr. Thais Nava Hemoglobin (Bld) [Mass/Vol] 14.5 g/dL Normal 14.0-18.0 [facility] Comment on above: Performed By: #### P SASC, FETIBC, FERR #### [facility] [address] [place] [address] Dr. Thais Nava IG # 0.03 10e3/ul Normal 0.00-0.03 [facility] Comment on above: Performed By: #### P SASC, FETIBC, FERR #### [facility] [address] [place] [address] Dr. Thais Nava IG % 0.4 % Normal 0.0-0.5 [facility] Comment on above: Performed By: #### P SASC, FETIBC, FERR #### [facility] [address] [place] [address] Dr. Thais Nava LYMPH # 2.0 103/ul Normal 1.2-3.8 [facility] Comment on above: Performed By: #### P SASC, FETIBC, FERR #### [facility] [address] [place] [address] Dr. Thais Nava Lymphocytes/100 WBC (Bld) 26.2 % Normal 20.5-60.0 [facility] Comment on above: Performed By: #### P SASC, FETIBC, FERR #### [facility] [address] [place] [address] Dr. Thais Nava MANUAL DIFF REQ NO Normal [facility] Comment on above: Performed By: #### P SASC, FETIBC, FERR #### [facility] [address] [place] [address] Dr. Thais Nava MCH (RBC) [Entitic mass] 28.2 pg Normal 25.9-34.0 [facility] Comment on above: Performed By: #### P SASC, FETIBC, FERR #### [facility] [address] [place] [address] Dr. Thais Nava MCHC (RBC) [Mass/Vol] 33.0 g/dL Normal 29.9-35.2 [facility] Comment on above: Performed By: #### P SASC, FETIBC, FERR #### [facility] [address] [place] [address] Dr. Thais Nava MCV (RBC) [Entitic vol] 85.6 fL Normal 80.0-94.0 [facility] Comment on above: Performed By: #### P SASC, FETIBC, FERR #### [facility] [address] [place] [address] Dr. Thais Nava MONO # 0.5 103/ul Normal 0.3-0.8 [facility] Comment on above: Performed By: #### P SASC, FETIBC, FERR #### [facility] [address] [place] [address] Dr. Thais Nava Monocytes/100 WBC (Bld) 6.3 % Normal 1.7-12.0 [facility] Comment on above: Performed By: #### P SASC, FETIBC, FERR #### [facility] [address] [place] [address] Dr. Thais Nava NEUT # 5.0 103/ul Normal 1.4-6.5 [facility] Comment on above: Performed By: #### P SASC, FETIBC, FERR #### [facility] [address] [place] [address] Dr. Thais Nava Neutrophils/100 WBC (Bld) 65.7 % Normal 43.0-75.0 [facility] Comment on above: Performed By: #### P SASC, FETIBC, FERR #### [facility] [address] [place] [address] Dr. Thais Nava Platelet mean volume (Bld) [Entitic vol] 9.7 fL Normal 9.5-13.5 [facility] Comment on above: Performed By: #### P SASC, FETIBC, FERR #### [facility] [address] [place] [address] Dr. Thais Nava PLT 279 103/ul Normal 150-450 [facility] Comment on above: Performed By: #### P SASC, FETIBC, FERR #### [facility] [address] [place] [address] Dr. Thais Nava RBC 5.14 106/ul Normal 4.70-6.10 [facility] Comment on above: Performed By: #### P SASC, FETIBC, FERR #### [facility] [address] [place] [address] Dr. Thais Nava WBC 7.6 103/ul Normal 4.0-11.0 [facility] Comment on above: Performed By: #### P SASC, FETIBC, FERR #### [facility] [address] [place] [address] Dr. Thais Nava FERRITINon 04-06-2022 Ferritin [Mass/Vol] 709.0 ng/mL Critically high 26.0-388.0 [facility] Comment on above: Performed By: #### F ERR #### [facility] [address] [place] [address] Dr. Thais Nava GLYCOHEMOGLOBIN A1Con 2022 ADA RECOMMENDATION SEE BELOW Normal [facility] [place] Comment on above: Result Comment: ADA RECOMMENDED LIMIT 4.0 - 6.0 ADA THERAPEUTIC TARGET < 7.0 ACTION SUGGESTED > 7.0 Performed By: #### A 1C #### [facility] [address] [place] [address] Dr. Thais Nava Glucose [Mass/Vol] 157 mg/dL Normal [facility] Comment on above: Performed By: #### A 1C #### [facility] [address] [place] [address] Dr. Thais Nava HbA1c (Bld) [Mass fraction] 7.1 % Critically high 4.5-6.2 [facility] Comment on above: Performed By: #### A 1C #### [facility] [address] [place] [address] Dr. Thais Nava PROF CHEM 8 (BAS METB)on Anion gap [Moles/Vol] 11.8 mmol/L Normal [facility] Comment on above: Performed By: #### B MP #### [facility] [address] [address] [address] Thais Nava Calcium [Mass/Vol] 9.7 mg/dL Normal 8.5-10.1 [facility] Comment on above: Performed By: #### B MP #### [facility] [address] [address] [address] Thais Nava Chloride [Moles/Vol] 99 mmol/L Normal 98-107 [facility] Comment on above: Performed By: #### B MP #### [facility] [address] [address] [address] Thais Nava CO2 [Moles/Vol] 32.4 mmol/L Critically high 21.0-32.0 [facility] Comment on above: Performed By: #### B MP #### [facility] [address] [place] [address] Dr. Thais Nava Creatinine [Mass/Vol] 1.00 mg/dL Normal 0.70-1.30 [facility] Comment on above: Performed By: #### B MP #### [facility] [address] [address] [address] Thais Nava EGFR-AF ISRAELI >60 Normal >=60 [facility] Comment on above: Performed By: #### B MP #### [facility] [address] [place] [address] Dr. Thais Nava EGFR-NON AF ISRAELI >60 Normal >=60 [facility] Comment on above: Performed By: #### B MP #### [facility] [address] [address] [address] Thais Nava Glucose [Mass/Vol] 177 mg/dL Critically high 74-106 [facility] Comment on above: Performed By: #### B MP #### [facility] [address] [place] [address] Dr. Thais Nava Potassium [Moles/Vol] 4.2 mmol/L Normal 3.5-5.1 [facility] Comment on above: Performed By: #### B MP #### [facility] [address] [place] [address] Dr. Thais Nava Sodium [Moles/Vol] 139 mmol/L Normal 136-145 [facility] Comment on above: Performed By: #### B MP #### [facility] [address] [place] [address] Dr. Thais Nava Urea nitrogen [Mass/Vol] 22.0 mg/dL Critically high 7.0-18.0 [facility] Comment on above: Performed By: #### B MP #### [facility] [address] [place] [address] Dr. Thais Nava Urea nitrogen/Creatinine [Mass ratio] 22.0 mg/mg Normal [facility] Comment on above: Performed By: #### B MP #### [facility] [address] [place] [address] Dr. Thais Nava TRANSFERRINon 10-02-2021 Transferrin [Mass/Vol] 245 mg/dL Normal 177-329 [facility] Comment on above: Performed By: #### P SASC, FETIBC, FERR #### [facility] [address] [place] [address] Dr. Thais Nava CBC AUTO DIFFon 10-01-2021 BASO # 0.0 103/ul Normal 0.0-0.1 [facility] Comment on above: Performed By: #### P SASC, FETIBC, FERR #### [facility] [address] [place] [address] Dr. Thais Nava Basophils/100 WBC (Bld) 0.4 % Normal 0.2-2.0 [facility] Comment on above: Performed By: #### P SASC, FETIBC, FERR #### [facility] [address] [place] [address] Dr. Thais Nava EO # 0.1 103/ul Normal 0.0-0.7 [facility] Comment on above: Performed By: #### P SASC, FETIBC, FERR #### [facility] [address] [place] [address] Dr. Thais Nava Eosinophils/100 WBC (Bld) 1.8 % Normal 0.9-7.0 [facility] Comment on above: Performed By: #### P SASC, FETIBC, FERR #### [facility] [address] [place] [address] Dr. Thais Nava Erythrocyte distribution width (RBC) [Ratio] 14.1 % Normal 11.0-15.0 [facility] Comment on above: Performed By: #### P SASC, FETIBC, FERR #### [facility] [address] [place] [address] Dr. Thais Nava Hematocrit (Bld) [Volume fraction] 40.3 % Critically low 42.0-54.0 [facility] Comment on above: Performed By: #### P SASC, FETIBC, FERR #### [facility] [address] [place] [address] Dr. Thais Nava Hemoglobin (Bld) [Mass/Vol] 13.2 g/dL Critically low 14.0-18.0 [facility] Comment on above: Performed By: #### P SASC, FETIBC, FERR #### [facility] [address] [place] [address] Dr. Thais Nava IG # 0.03 10e3/ul Normal 0.00-0.03 [facility] Comment on above: Performed By: #### P SASC, FETIBC, FERR #### [facility] [address] [place] [address] Dr. Thais Nava IG % 0.4 % Normal 0.0-0.5 [facility] Comment on above: Performed By: #### P SASC, FETIBC, FERR #### [facility] [address] [place] [address] Dr. Thais Nava LYMPH # 1.8 103/ul Normal 1.2-3.8 [facility] Comment on above: Performed By: #### P SASC, FETIBC, FERR #### [facility] [address] [place] [address] Dr. Thais Nava Lymphocytes/100 WBC (Bld) 25.0 % Normal 20.5-60.0 [facility] Comment on above: Performed By: #### P SASC, FETIBC, FERR #### [facility] [address] [place] [address] Dr. Thais Nava MANUAL DIFF REQ NO Normal [facility] Comment on above: Performed By: #### P SASC, FETIBC, FERR #### [facility] [address] [place] [address] Dr. Thais Nava MCH (RBC) [Entitic mass] 28.8 pg Normal 25.9-34.0 [facility] Comment on above: Performed By: #### P SASC, FETIBC, FERR #### [facility] [address] [place] [address] Dr. Thais Nava MCHC (RBC) [Mass/Vol] 32.8 g/dL Normal 29.9-35.2 [facility] Comment on above: Performed By: #### P SASC, FETIBC, FERR #### [facility] [address] [place] [address] Dr. Thais Nava MCV (RBC) [Entitic vol] 88.0 fL Normal 80.0-94.0 [facility] Comment on above: Performed By: #### P SASC, FETIBC, FERR #### [facility] [address] [place] [address] Dr. Thais Nava MONO # 0.4 103/ul Normal 0.3-0.8 [facility] Comment on above: Performed By: #### P SASC, FETIBC, FERR #### [facility] [address] [place] [address] Dr. Thais Nava Monocytes/100 WBC (Bld) 5.6 % Normal 1.7-12.0 [facility] Comment on above: Performed By: #### P SASC, FETIBC, FERR #### [facility] [address] [place] [address] Dr. Thais Nava NEUT # 4.9 103/ul Normal 1.4-6.5 [facility] Comment on above: Performed By: #### P SASC, FETIBC, FERR #### [facility] [address] [place] [address] Dr. Thais Nava Neutrophils/100 WBC (Bld) 66.8 % Normal 43.0-75.0 [facility] Comment on above: Performed By: #### P SASC, FETIBC, FERR #### [facility] [address] [place] [address] Dr. Thais Nava Platelet mean volume (Bld) [Entitic vol] 10.8 fL Normal 9.5-13.5 [facility] Comment on above: Performed By: #### P SASC, FETIBC, FERR #### [facility] [address] [place] [address] Dr. Thais Nava PLT 205 103/ul Normal 150-450 [facility] Comment on above: Performed By: #### P SASC, FETIBC, FERR #### [facility] [address] [place] [address] Dr. Thais Nava RBC 4.58 106/ul Critically low 4.70-6.10 [facility] Comment on above: Performed By: #### P SASC, FETIBC, FERR #### [facility] [address] [place] [address] Dr. Thais Nava WBC 7.3 103/ul Normal 4.0-11.0 [facility] Comment on above: Performed By: #### P SASC, FETIBC, FERR #### [facility] [address] [place] [address] Dr. Thais Nava CRPon 10-01-2021 CRP [Mass/Vol] mg/L Normal <=1.0 [facility] Comment on above: Performed By: #### P SASC, FETIBC, FERR #### [facility] [address] [place] [address] Dr. Thais Nava FERRITINon 10-01-2021 Ferritin [Mass/Vol] 631.0 ng/mL Critically high 26.0-388.0 [facility] Comment on above: Performed By: #### P SASC, FETIBC, FERR #### [facility] [address] [place] [address] Dr. Thais Nava GLYCOHEMOGLOBIN A1Con 08-15- 2022 ADA RECOMMENDATION SEE BELOW Normal [facility] Comment on above: Result Comment: ADA RECOMMENDED LIMIT 4.0 - 6.0 ADA THERAPEUTIC TARGET < 7.0 ACTION SUGGESTED > 7.0 Performed By: #### A 1C #### [facility] [address] [place] [address] Dr. Thais Nava Glucose [Mass/Vol] 200 mg/dL Normal [facility] Comment on above: Performed By: #### A 1C #### [facility] [address] [address] [address] Thais Nava HbA1c (Bld) [Mass fraction] 8.6 % Critically high 4.5-6.2 [facility] Comment on above: Performed By: #### A 1C #### [facility] [address] [place] [address] Dr. Thais Nava IRON AND TIBCon 10-01-2021 % SATURATION 24.1 % Normal [facility] Comment on above: Performed By: #### P SASC, FETIBC, FERR #### [facility] [address] [place] [address] Dr. Thais Nava Iron [Mass/Vol] 68.0 ug/dL Normal 65.0-175.[address] [facility] Comment on above: Performed By: #### P SASC, FETIBC, FERR #### [facility] [address] [place] [address] Dr. Thais Nava TIBC DIRECT 282.0 ug/dL Normal 250.0-450.0 [facility] Comment on above: Performed By: #### P SASC, FETIBC, FERR #### [facility] [address] [place] [address] Dr. Thais Nava PROF 14(COMP METB)on 022 Albumin [Mass/Vol] 3.3 g/dL Critically low 3.4-5.0 [facility] Comment on above: Performed By: #### P SASC, FETIBC, FERR #### [facility] [address] [place] [address] Dr. Thais Nava Albumin/Globulin [Mass ratio] 0.9 {ratio} Normal [facility] Comment on above: Performed By: #### P SASC, FETIBC, FERR #### [facility] [address] [address] [address] Thais Nava ALP [Catalytic activity/Vol] 69 U/L Normal 46-116 [facility] Comment on above: Performed By: #### P SASC, FETIBC, FERR #### [facility] [address] [place] [address] Dr. Thais Nava ALT [Catalytic activity/Vol] 34 U/L Normal 16-63 [facility] Comment on above: Performed By: #### P SASC, FETIBC, FERR #### [facility] [address] [place] [address] Dr. Thais Nava Anion gap [Moles/Vol] 16.8 mmol/L Normal [facility] Comment on above: Performed By: #### P SASC, FETIBC, FERR #### [facility] [address] [place] [address] Dr. Thais Nava AST [Catalytic activity/Vol] 20 U/L Normal 15-37 [facility] Comment on above: Performed By: #### P SASC, FETIBC, FERR #### [facility] [address] [place] [address] Dr. Thais Naav Bilirubin [Mass/Vol] 0.4 mg/dL Normal 0.2-1.0 [facility] Comment on above: Performed By: #### P SASC, FETIBC, FERR #### [facility] [address] [place] [address] Dr. Thais Nava Calcium [Mass/Vol] 8.7 mg/dL Normal 8.5-10.1 [facility] Comment on above: Performed By: #### P SASC, FETIBC, FERR #### [facility] [address] [place] [address] Dr. Thais Nava Chloride [Moles/Vol] 102 mmol/L Normal 98-107 [facility] Comment on above: Performed By: #### P SASC, FETIBC, FERR #### [facility] [address] [address] [address] Thais Nava CO2 [Moles/Vol] 23.5 mmol/L Normal 21.0-32.0 [facility] Comment on above: Performed By: #### P SASC, FETIBC, FERR #### [facility] [address] [place] [address] Dr. Thais Nava Creatinine [Mass/Vol] 1.07 mg/dL Normal 0.70-1.30 [facility] Comment on above: Performed By: #### P SASC, FETIBC, FERR #### [facility] [address] [address] [address] Thais Nava EGFR-AF ISRAELI >60 Normal >=60 [facility] Comment on above: Performed By: #### P SASC, FETIBC, FERR #### [facility] [address] [place] [address] Dr. Thais Nava EGFR-NON AF ISRAELI >60 Normal >=60 [facility] Comment on above: Performed By: #### P SASC, FETIBC, FERR #### [facility] [address] [place] [address] Dr. Thais Nava Globulin (S) [Mass/Vol] 3.8 g/dL Normal [facility] Comment on above: Performed By: #### P SASC, FETIBC, FERR #### [facility] [address] [place] [address] Dr. Thais Nava Glucose [Mass/Vol] 317 mg/dL Critically high 74-106 [facility] Comment on above: Performed By: #### P SASC, FETIBC, FERR #### [facility] [address] [place] [address] Dr. Thais Nava Potassium [Moles/Vol] 4.3 mmol/L Normal 3.5-5.1 [facility] Comment on above: Performed By: #### P SASC, FETIBC, FERR #### [facility] [address] [place] [address] Dr. Thais Nava Protein [Mass/Vol] 7.1 g/dL Normal 6.4-8.2 [facility] Comment on above: Performed By: #### P SASC, FETIBC, FERR #### [facility] [address] [place] [address] Dr. Thais Nava Sodium [Moles/Vol] 138 mmol/L Normal 136-145 [facility] Comment on above: Performed By: #### P SASC, FETIBC, FERR #### [facility] [address] [place] [address] Dr. Thais Nava Urea nitrogen [Mass/Vol] 16.0 mg/dL Normal 7.0-18.0 [facility] Comment on above: Performed By: #### P SASC, FETIBC, FERR #### [facility] [address] [place] [address] Dr. Thais Nava Urea nitrogen/Creatinine [Mass ratio] 15.0 mg/mg Normal [facility] Comment on above: Performed By: #### P SASC, FETIBC, FERR #### [facility] [address] [place] [address] Dr. Thais Nava [facility] 31 mm/hr Critically high <=20 [facility] Comment on above: Performed By: #### S EDR #### [facility] [address] [place] [address] Dr. Thais Nava VITAMIN B12on 06-27-2021 Cobalamin (Vitamin B12) [Mass/Vol] 481 pg/mL Normal 232-1245 [facility] Comment on above: Performed By: #### V B12LC #### [facility] [address] [place] [address] Dr. Thais Nava CBC AUTO DIFFon 06-26-2021 BASO # 0.0 103/ul Normal 0.0-0.1 [facility] Comment on above: Performed By: #### C BC #### [facility] [address] [place] [address] Dr. Thais Nava Basophils/100 WBC (Bld) 0.4 % Normal 0.2-2.0 [facility] Comment on above: Performed By: #### C BC #### [facility] [address] [place] [address] Dr. Thais Nava EO # 0.1 103/ul Normal 0.0-0.7 [facility] Comment on above: Performed By: #### C BC #### [facility] [address] [place] [address] Dr. Thais Nava Eosinophils/100 WBC (Bld) 1.5 % Normal 0.9-7.0 [facility] Comment on above: Performed By: #### C BC #### [facility] [address] [place] [address] Dr. Thais Nava Erythrocyte distribution width (RBC) [Ratio] 14.7 % Normal 11.0-15.0 [facility] Comment on above: Performed By: #### C BC #### [facility] [address] [place] [address] Dr. Thais Nava Hematocrit (Bld) [Volume fraction] 44.1 % Normal 42.0-54.0 [facility] Comment on above: Performed By: #### C BC #### [facility] [address] [place] [address] Dr. Thais Nava Hemoglobin (Bld) [Mass/Vol] 14.3 g/dL Normal 14.0-18.0 [facility] Comment on above: Performed By: #### C BC #### [facility] [address] [place] [address] Dr. Thais Nava IG # 0.03 10e3/ul Normal 0.00-0.03 [facility] Comment on above: Performed By: #### C BC #### [facility] [address] [place] [address] Dr. Thais Nava IG % 0.3 % Normal 0.0-0.5 [facility] Comment on above: Performed By: #### C BC #### [facility] [address] [place] [address] Dr. Thais Nava LYMPH # 2.3 103/ul Normal 1.2-3.8 [facility] Comment on above: Performed By: #### C BC #### [facility] [address] [place] [address] Dr. Thais Nava Lymphocytes/100 WBC (Bld) 24.9 % Normal 20.5-60.0 [facility] Comment on above: Performed By: #### C BC #### [facility] [address] [place] [address] Dr. Thais Nava MANUAL DIFF REQ NO Normal [facility] Comment on above: Performed By: #### C BC #### [facility] [address] [place] [address] Dr. Thais Nava MCH (RBC) [Entitic mass] 28.7 pg Normal 25.9-34.0 [facility] Comment on above: Performed By: #### C BC #### [facility] [address] [place] [address] Dr. Thais Nava MCHC (RBC) [Mass/Vol] 32.4 g/dL Normal 29.9-35.2 [facility] Comment on above: Performed By: #### C BC #### [facility] [address] [place] [address] Dr. Thais Nava MCV (RBC) [Entitic vol] 88.4 fL Normal 80.0-94.0 [facility] Comment on above: Performed By: #### C BC #### [facility] [address] [place] [address] Dr. Thais Nava MONO # 0.6 103/ul Normal 0.3-0.8 [facility] Comment on above: Performed By: #### C BC #### [facility] [address] [place] [address] Dr. Thais Nava Monocytes/100 WBC (Bld) 6.7 % Normal 1.7-12.0 [facility] Comment on above: Performed By: #### C BC #### [facility] [address] [place] [address] Dr. Thais Nava NEUT # 6.2 103/ul Normal 1.4-6.5 [facility] Comment on above: Performed By: #### C BC #### [facility] [address] [place] [address] Dr. Thais Nava Neutrophils/100 WBC (Bld) 66.2 % Normal 43.0-75.0 [facility] Comment on above: Performed By: #### C BC #### [facility] [address] [place] [address] Dr. Thais Nava Platelet mean volume (Bld) [Entitic vol] 10.5 fL Normal 9.5-13.5 [facility] Comment on above: Performed By: #### C BC #### [facility] [address] [place] [address] Dr. Thais Nava PLT 262 103/ul Normal 150-450 The [facility] Comment on above: Performed By: #### C BC #### [facility] Laboratory [address] [place] [address] Dr. Thais Nava RBC 4.99 106/ul Normal 4.70-6.10 [facility] Comment on above: Performed By: #### C BC #### [facility] [address] [place] [address] Dr. Thais Nava WBC 9.4 103/ul Normal 4.0-11.0 [facility] Comment on above: Performed By: #### C BC #### [facility] [address] [place] [address] Dr. Thais Nava FERRITINon 06-26-2021 Ferritin [Mass/Vol] 665.0 ng/mL Critically high 26.0-388.0 [facility] Comment on above: Performed By: #### P SASC, FETIBC, FERR #### [facility] [address] [place] [address] Dr. Thais Nava GLYCOHEMOGLOBIN A1Con 2021 ADA RECOMMENDATION SEE BELOW Normal [facility] Comment on above: Result Comment: ADA RECOMMENDED LIMIT 4.0 - 6.0 ADA THERAPEUTIC TARGET < 7.0 ACTION SUGGESTED > 7.0 Performed By: #### P SASC, FETIBC, FERR #### [facility] [address] [place] [address] Dr. Thais Nava Glucose [Mass/Vol] 194 mg/dL Normal [facility] Comment on above: Performed By: #### P SASC, FETIBC, FERR #### [facility] [address] [address] [address] Thais Nava HbA1c (Bld) [Mass fraction] 8.4 % Critically high 4.5-6.2 [facility] Comment on above: Performed By: #### P SASC, FETIBC, FERR #### [facility] [address] [address] [address] Thais Nava IRONon 06-26-2021 Iron [Mass/Vol] 85.0 ug/dL Normal 65.0-175.0 [facility] Comment on above: Performed By: #### P SASC, FETIBC, FERR #### [facility] [address] [address] [address] Thais Nava Vital Signs Date Time Vital Sign Value Performing Clinician Facility 04-01-2024 [id number] Body height 172.7 cm Vandana Almanza [employer] Work Phone: [facility] 04-01-2024 15:21-0500 Body mass index (BMI) [Ratio] 47.71 kg/m2 Vandana Almanza [employer] Work Phone: [facility] 04-01-2024 15:21-0500 Body temperature 98.4 [degF] Vandana Almanza [employer] Work Phone: [facility] 04-01-2024 15:21-0500 Body weight 142.34 kg Vandana Amlanza [employer] Work Phone: [facility] 04-01-2024 15:21-0500 Diastolic blood pressure 80 mm[Hg] Vandana Almanza [employer] Work Phone: [facility] 04-01-2024 15:21-0500 Heart rate 66 /min Vandana Almanza [employer] Work Phone: [facility] 04-01-2024 15:21-0500 Respiratory rate 22 /min Vandana Almanza [employer] Work Phone: [facility] 04-01-2024 15:21-0500 SaO2% (BldA) [Mass fraction] 98 % Vandana Laihholz [employer] Work Phone: [facility] 04-01-2024 15:21-0500 Systolic blood pressure 132 mm[Hg] Vandana Aichholz [employer] Work Phone: [facility] 12-31-2023 09:23-0500 Body height 172.7 cm Vandana Aichholz [employer] Work Phone: [facility] 12-31-2023 09:23-0500 Body mass index (BMI) [Ratio] 48.08 kg/m2 Vandana Aichholz [employer] Work Phone: [facility] 12-31-2023 09:23-0500 Body temperature 98.8 [degF] Vandana Laihholz [employer] Work Phone: [facility] 12-31-2023 09:23-0500 Body weight 143.43 kg Vandana Laihholz [employer] Work Phone: [facility] 12-31-2023 09:23-0500 Diastolic blood pressure 84 mm[Hg] Vandana Aichholz [employer] Work Phone: [facility] 12-31-2023 09:23-0500 Heart rate 91 /min Vandana Aichholz [employer] Work Phone: [facility] 12-31-2023 09:23-0500 Respiratory rate 19 /min Vandana Aichholz [employer] Work Phone: [facility] 12-31-2023 09:23-0500 SaO2% (BldA) [Mass fraction] 99 % Vandana Aichholz [employer] Work Phone: [facility] 12-31-2023 09:23-0500 Systolic blood pressure 154 mm[Hg] Vandana Aichholz [employer] Work Phone: [facility] 11-18-2023 15:30-0400 Body height 172.7 cm Vandana Aichholz [employer] Work Phone: [facility] 11-18-2023 15:30-0400 Body mass index (BMI) [Ratio] 47.53 kg/m2 Vandana Almanza [employer] Work Phone: [facility] 11-18-2023 15:30-0400 Body temperature 99 [degF] Vandana Plummerz [employer] Work Phone: [facility] 11-18-2023 15:30-0400 Body weight 141.79 kg Vandana Plummerz [employer] Work Phone: [facility] 11-18-2023 15:30-0400 Diastolic blood pressure 90 mm[Hg] Vandana Plummerz [employer] Work Phone: [facility] 11-18-2023 15:30-0400 Heart rate 79 /min Vandanaroman Plummerz [employer] Work Phone: [facility] 11-18-2023 15:30-0400 Respiratory rate 19 /min Vandanaroman Plummerz [employer] Work Phone: [facility] 11-18-2023 15:30-0400 SaO2% (BldA) [Mass fraction] 98 % Vandana Plummerz [employer] Work Phone: [facility] 11-18-2023 15:30-0400 Systolic blood pressure 132 mm[Hg] Vandana Almanza [employer] Work Phone: [facility] 05-20-2023 15:25-0400 Body height 175.26 cm [facility] 05-20-2023 15:25-0400 Body mass index (BMI) [Ratio] 44.9 kg/m2 [facility] 05-20-2023 15:25-0400 Body weight 137.89 kg [facility] 04-15-2023 16:15-0500 Body height 175.26 cm [facility] 04-15-2023 16:15-0500 Body mass index (BMI) [Ratio] 44.9 kg/m2 [facility] 04-15-2023 16:15-0500 Body weight 137.89 kg [facility] 04-15-2023 16:15-0500 Diastolic blood pressure 74 mm[Hg] [facility] 04-15-2023 16:15-0500 Heart rate 104 /min [facility] 04-15-2023 16:15-0500 Systolic blood pressure 146 mm[Hg] [facility] 03-31-2023 15:18-0500 Body height 172.7 cm Vandana Kavithaz [employer] Work Phone: [facility] 03-31-2023 15:18-0500 Body mass index (BMI) [Ratio] 46.22 kg/m2 Vandana Aichholz [employer] Work Phone: [facility] 03-31-2023 15:18-0500 Body temperature 97.3 [degF] Vandana Laihholz [employer] Work Phone: [facility] 03-31-2023 15:18-0500 Body weight 137.89 kg Vandana Laihholz [employer] Work Phone: [facility] 03-31-2023 15:18-0500 Diastolic blood pressure 86 mm[Hg] Vandana Aichholz [employer] Work Phone: [facility] 03-31-2023 15:18-0500 Heart rate 100 /min Vandana Aichholz [employer] Work Phone: [facility] 03-31-2023 15:18-0500 Respiratory rate 17 /min Vandana Laihholz [employer] Work Phone: [facility] 03-31-2023 15:18-0500 SaO2% (BldA) [Mass fraction] 96 % Vandana Laihholz [employer] Work Phone: [facility] 03-31-2023 15:18-0500 Systolic blood pressure 144 mm[Hg] Vandana Aichholz [employer] Work Phone: [facility] Healthcare Encounters Encounter Date Encounter Type Care Provider Facility Start: 04-01-2024 End: 04-01-2024 Office outpatient visit 25 minutes Vandana Kavithaz [employer] Work Phone: [facility] Comment on above: Type 2 diabetes antonette itus without complication, without long- term current use of insulin ([facility]) (Primary Dx); Type 2 diabetes mellitus with diabetic polyneuropathy ([facility]); Morbid (severe) obesity due to excess calories ([facility]); Body mass index (BMI) 45.0-49.9, adult ([facility]); Hypertension, benign ([facility]); Lower extremity edema; Mixed hyperlipidemia ([facility]); Environmental and seasonal allergies; Primary osteoarthritis involving multiple joints; Type 2 diabetes mellitus with peripheral neuropathy ([facility]); Sleep apnea, obstructive Start: 04-01-2024 End: 04-01-2024 ambulatory VANDANA ARCHIE Not Available Start: 04-01-2024 End: 04-01-2024 Bamboo flowsheet Vandana Archie [employer] Work Phone: [facility] Start: 04-01-2024 End: 04-01-2024 Bamboo flowsheet Vandana Archie [employer] Work Phone: [facility] Start: 02-13-2024 End: 02-15-2024 Refill Vandana Archie [employer] Work Phone: [facility] Comment on above: Primary osteoarthrit is involving multiple joints (Primary Dx) Start: 12-31-2023 End: 12-31-2023 Bamboo flowsheet Vandana Archie [employer] Work Phone: [facility] Start: 12-31-2023 End: 12-31-2023 Bamboo flowsheet Vandana Archie [employer] Work Phone: [facility] Start: 12-31-2023 End: 12-31-2023 Office outpatient visit 25 minutes Vandana Almanza [employer] Work Phone: [facility] Comment on above: Hypertension, benign (CMS/HCC) (Primary Dx); BMI 45.0-49.9, adult ([facility]); Primary osteoarthritis involving multiple joints; Gastroesophageal reflux disease without esophagitis; Type 2 diabetes mellitus without complication, without long-term current use of insulin ([facility]); Type 2 diabetes mellitus with peripheral neuropathy ([facility]); Environmental and seasonal allergies Start: 12-31-2023 End: 12-31-2023 ambulatory VANDANA AICHHOLZ Not Available Start: 12-30-2023 End: 12-30-2023 Refill Lory Garrison MA [facility] Comment on above: Mixed hyperlipidemia ([facility]) Start: 11-21-2023 End: 11-23-2023 Telephone encounter Vandana Aickaranholz [employer] Work Phone: [facility] Start: 11-20-2023 End: 11-20-2023 Clinisync Result Encounter Vandana Aichholz [employer] Work Phone: [facility] External Department Unsolicited Start: 11-20-2023 End: 11-20-2023 Clinisync Result Encounter Vandana Aichholz [employer] Work Phone: [facility] External Department Unsolicited Start: 11-18-2023 End: 11-18-2023 Office outpatient visit 25 minutes Vandana Aichholz [employer] Work Phone: [facility] Comment on above: Type 2 diabetes antonette itus without complication, without long- term current use of insulin ([facility]) (Primary Dx); Prostate cancer screening; Primary osteoarthritis involving multiple joints; Type 2 diabetes mellitus with peripheral neuropathy ([facility]); BMI 45.0-49.9, adult ([facility]); Lower extremity edema Start: 11-18-2023 End: 11-18-2023 ambulatory VANDANA AICHHOLZ Not Available Start: 11-18-2023 End: 11-18-2023 Bamboo flowsheet Vandana Aichholz [employer] Work Phone: [facility] Start: 11-18-2023 End: 11-18-2023 Bamboo flowsheet Vandana Aichholz [employer] Work Phone: [facility] Start: 10-16-2023 End: 10-16-2023 Refill Vandana Aichholz [employer] Work Phone: [facility] Comment on above: Type 2 diabetes antonette itus with peripheral neuropathy (CMS/HCC) Start: 10-11-2023 End: 10-13-2023 Refill Vandana Kavithaz [employer] Work Phone: [facility] Comment on above: Type 2 diabetes antonette itus without complication, without long- term current use of insulin (CMS/HCC); Lower extremity edema; Hypertension, benign (CMS/HCC) Start: 07-15-2023 End: 07-15-2023 ambulatory VANDANA AICHHOLZ Not Available Start: 05-20-2023 End: 05-20-2023 ambulatory [facility] Work Phone: Start: 05-20-2023 End: 05-20-2023 Patient encounter procedure [facility] Work Phone: Start: 05-12-2023 End: 05-12-2023 ambulatory VANDANA AICHHOLZ Not Available Start: 04-15-2023 End: 04-15-2023 Patient encounter procedure [facility] Work Phone: Start: 04-02-2023 Clinisync Result Encounter Vandana Archie [employer] Work Phone: [facility] External Department Unsolicited Start: 04-02-2023 Clinisync Result Encounter Vandana Aicheduz [employer] Work Phone: [facility] External Department Unsolicited Start: 03-31-2023 End: 03-31-2023 Office outpatient visit 25 minutes Vandana Archie [employer] Work Phone: [facility] Comment on above: Type 2 diabetes antonette itus with peripheral neuropathy (CMS/HCC) (Primary Dx); BMI 45.0-49.9, adult (CMS/HCC); Microscopic hematuria; Generalized abdominal pain Start: 03-31-2023 Bamboo flowsheet Vandana Laiheduz [employer] Work Phone: [facility] Start: 03-31-2023 Bamboo flowsheet Vandana Aichholz [employer] Work Phone: [facility] Start: 04-06-2022 End: 04-07-2022 ambulatory SNAPPER ON VANDANA IRENEEDUFranky Facility:[facility]1 Start: 10-01-2021 End: 10-02-2021 ambulatory SNAPPER ON VANDANARoman IRENEEDUFranky Facility:[facility] Start: 06-26-2021 End: 06-27-2021 ambulatory SNAPPER ON VANDANA IRENEEDUFranky Facility:[facility] Procedures Date Procedure Procedure Detail Performing Clinician Start: 04-01-2024 Hemoglobin glycosyla gill a1c Vandana Archie [employer] Work Phone: Start: 11-20-2023 MLR HEMOGLOBIN A1C Vandana Zeeshanholz [employer] Work Phone: Start: 04-02-2023 TBH UA (CLEAN/CATCH) MICROSCOPIC IF INDICATE Vandana Archie [employer] Work Phone: Start: 10-01-2021 PSA screening SNAPPER ON VANDANA IRENEEDUFranky Comment on above: Performed By: #### P SASC, FETIBC, FERR #### [facility] [address] [place] [address] Dr. Tahis Nava Plan of Treatment Date Care Activity Detail Author Start: 09-08-2026 Screening for malign ant neoplasm of colon [facility] Start: 08-06-2024 Glaucoma screening Diabetes: R etinopathy Screening [facility] Start: 06-29-2024 Hemoglobin A1c measurement Diabetes: Hemoglobin A1C [facility] Start: 04-01-2024 End: 04-01-2024 Patient encounter procedure 04/01/2024 3:00 PM EST Office Visit [facility] [address] [place] [address] Vandana Almanza [employer] [address] [place] [phone] [facility] Start: 04-01-2024 End: 04-01-2025 CBC W Auto Differential panel - Blood CBC and differential Lab Routine Type 2 diabetes mellitus without complication, without long-term current use of insulin ([facility]) Expected: 04/01/2024 (Approximate), Expires: 04/01/2025 [facility] Work Phone: Comment on above: Expected: 04/01/2024 (Approximate), Expires: 04/01/2025 Start: 04-01-2024 End: 04-01-2025 Comprehensive metabolic 2000 panel - Serum or Plasma Comprehensive metabolic panel Lab Routine Hypertension, benign (CMS/HCC) Type 2 diabetes mellitus without complication, without long-term current use of insulin (CMS/HCC) Mixed hyperlipidemia (CMS/HCC) Expected: 04/01/2024 (Approximate), Expires: 04/01/2025 [facility] Comment on above: Expected: 04/01/2024 (Approximate), Expires: 04/01/2025 Start: 04-01-2024 End: 04-01-2025 Lipid 1996 panel - Serum or Plasma Lipid panel Lab Routine Type 2 diabetes mellitus without complication, without long-term current use of insulin (CMS/HCC) Mixed hyperlipidemia (CMS/HCC) Expected: 04/01/2024 (Approximate), Expires: 04/01/2025 [facility] Comment on above: Expected: 04/01/2024 (Approximate), Expires: 04/01/2025 Start: 04-01-2024 End: 04-01-2025 Microalbumin/Creatinine panel in random Urine Microalbumin / creatinine, urine ratio Lab Routine Hypertension, benign (CMS/HCC) Type 2 diabetes mellitus without complication, without long-term current use of insulin (CMS/HCC) Expected: 04/01/2024 (Approximate), Expires: 04/01/2025 [facility] Comment on above: Expected: 04/01/2024 (Approximate), Expires: 04/01/2025 Start: 04-01-2024 End: 04-01-2025 Urinalysis complete panel - Urine Urinalysis with reflex microscopic (clean catch) Lab Routine Hypertension, benign (CMS/HCC) Type 2 diabetes mellitus without complication, without long-term current use of insulin (CMS/HCC) Expected: 04/01/2024 (Approximate), Expires: 04/01/2025 [facility] Comment on above: Expected: 04/01/2024 (Approximate), Expires: 04/01/2025 Start: 03-01-2024 Urine screening for protein Diabetes: Urine Protein Screening [facility] Start: 02-20-2024 Hemoglobin A1c measurement Diabetes: Hemoglobin A1C [facility] Start: 12-31-2023 End: 12-31-2023 Patient encounter procedure 12/31/2023 9:20 AM EST Office Visit [facility] [address] [place] [address] Vandana Almanza, [place]LAH [address] [place] [phone] [facility] Start: 11-18-2023 End: 11-18-2023 Patient encounter procedure [facility] Comment on above: Type 2 diabetes antonette itus without complication, without long- term current use of insulin ([facility]) (Primary Dx); Prostate cancer screening Start: 11-18-2023 End: 11-17-2024 Hemoglobin A1c/Hemoglobin.total in Blood Hemoglobin A1c Lab Routine Type 2 diabetes mellitus without complication, without long-term current use of insulin ([facility]) Expected: 11/18/2023 (Approximate), Expires: 11/17/2024 [facility] Work Phone: Comment on above: Expected: 11/18/2023 (Approximate), Expires: 11/17/2024 Start: 11-18-2023 End: 11-17-2024 Prostate specific Ag [Mass/volume] in Serum or Plasma PSA Lab Routine Prostate cancer screening Expected: 11/18/2023 (Approximate), Expires: 11/17/2024 [facility] Comment on above: Expected: 11/18/2023 (Approximate), Expires: 11/17/2024 Start: 11-05-2023 Hemoglobin A1c measurement Diabetes: Hemoglobin A1C [facility] Start: 10-16-2023 End: 10-16-2023 Patient encounter procedure 10/16/2023 3:40 PM EDT Office Visit [facility] [address] [place] [address] Vandana Almanza NP [address] [place] [phone] [facility] Start: 08-30-2023 Screening for malign ant neoplasm of colon [facility] Start: 05-31-2023 Hemoglobin A1c measurement Diabetes: Hemoglobin A1C [facility] Start: 05-12-2023 End: 05-12-2023 Patient encounter procedure 05/12/2023 6:00 PM EDT Office Visit [facility] [address] [place] [phone] Vandana Almanza, KYLAH [address] [place] [phone] [facility] Start: 03-31-2023 End: 03-31-2023 Patient encounter procedure 03/31/2023 3:20 PM EST Office Visit [facility] [address] [place] [phone] Vandana Almanza, KYLAH [address] [place] [phone] [facility] Comment on above: Arrived Start: 03-09-2023 Hemoglobin A1c measurement Diabetes: Hemoglobin A1C [facility] Start: 10-18-2022 Influenza vaccination Influenza Vacc ine (#1) [facility] Start: 02-03-2022 Urine screening for protein Diabetes: Urine Protein Screening [facility] Start: 1965 Screening for malign ant neoplasm of colon [facility] Immunizations Immunization Date Immunization Notes Care Provider [facility] 06-13-2020 pneumococcal polysaccharide vaccine, 23 valent Vandana Archie [employer] Work Phone: [facility] 11-24-2019 Influenza, injectabl e, Madin [place] Canine Kidney, preservative free, quadrivalent Vandana Archie [employer] Work Phone: [facility] 11-24-2019 influenza virus vacc ine, unspecified formulation Vandana Almanza [employer] Work Phone: [facility] 11-12-2019 influenza, seasonal, injectable Vandana Almanza [employer] Work Phone: [facility] 02-04-2019 Influenza, injectabl e, Madin [place] Canine Kidney, preservative free, quadrivalent Vandana Almanza [employer] Work Phone: [facility] Healthcare Payers Date Payer Category Payer Private Health Insurance [facility] [id number] 2022 Unknown [employer] [id number] 2022-Present [phone] [address] [address] [place] [address] [id number] 1963 Unknown [id number] 1963 Unknown [id number] 1963 Unknown [id number] 1963 Unknown [id number] 1963 Unknown [id number] 1963 Unknown [id number] .[id number] 1963 Unknown [id number] 1963 Unknown [id number] 1959 Unknown [id number] 1959 Unknown [id number] Unknown [facility] [id number] Social History Date Type Detail Facility Start: 02-21-2023 End: 12-31-2023 Tobacco smoking status NMIS Ex-smoker [facility] End: 02-18-1996 History of tobacco use Current smoker [facility] End: 02-18-1996 History of tobacco use Cigarette Smoker [facility] Start: 02-21-2023 End: 03-31-2024 Cigarettes smoked current (pack per day) - Reported 0.1 [facility] Start: 02-18-2023 End: 03-31-2024 Humiliation, Afraid, Rape, and Kick questionnaire [HARK] [...] Not on file [facility] Start: 03-31-2023 End: 04-01-2024 Alcohol intake Ex-drinker (finding) [facility] Start: 03-31-2023 Alcohol Comment caffine and alcohol: occasionally [facility] Start: 1965 Sex Assigned At Male [facility] How often to you hav e a drink containing alcohol? Monthly or less [facility] How often do you hav e 6 or more drinks on 1 occasion? Less than monthly [facility] How hard is it for y ou to pay for the very basics like food, housing, medical care, and heating Somewhat hard [facility] (I/We) worried whehiwot er (my/our) food would run out before (I/we) got money to buy more. Sometimes true [facility] Medical Equipment Procedure Code Equipment Code Equipment Origin al Text Equipment Identifier Dates 1 each by Other route Daily Use as instructed [id number] Start: 04-01-2024 End: 07-10-2024 1 each Daily [id number] Start: 04-01-2024 End: 07-10-2024 Clinical Notes 03-31-2023 to 04-01-2024 Vandana Almanza NP - 04/01/2024 3:53 PM PUMA HARMAN - 04/01/2024 3:00 PM Daniela Almanza NP - 04/01/2024 3:00 PM Daniela Almanza NP - 04/01/2024 7:34 AM ESTPatient Instructions Note Date & Type Note Facility 04-01-2024 History of Presen t illness Narrative Associated Problem(s): Sleep apnea, obstructive You have a diagnosis of obstructive sleep apnea. It is recommended that you wear your PAP device any time while in bed sleeping. Not using the PAP device can increase your risk of elevated/uncontrolled high blood pressure, atrial fibrillation, heart attack, stroke, or sudden . Compliance with PAP: yes How many hours of use per night: 8 Do you feel more refreshed in the morning: not really Company that supplies your machine and tubing/filters etc: [employer] Doctor that manages your BARRERA: Vandana Left bottom-heel started hurting about a week ago pt does have some troubles walking on it. Pain ranges from a 4-8 Images from the original note were not included. Pita Harden is a 58 y.o. male presents with chief complaint of Diabetes HPI: Diabetes He presents for his follow-up diabetic visit. He has type 2 diabetes mellitus. His disease course has been fluctuating. There are no hypoglycemic associated symptoms. Pertinent negatives for hypoglycemia include no dizziness, nervousness/anxiousness, seizures or tremors. Associated symptoms include fatigue and foot paresthesias (toes bilat feet). Pertinent negatives for diabetes include no blurred vision, no polydipsia, no polyphagia, no polyuria and no visual change. There are no hypoglycemic complications. Diabetic complications include peripheral neuropathy. Risk factors for coronary artery disease include diabetes mellitus, dyslipidemia, hypertension, male sex and obesity. Current diabetic treatment includes oral agent (triple therapy) (GLP 1). He is compliant with treatment most of the time. An CHRIS inhibitor/angiotensin II receptor sheila is being taken. He does not see a executive casino host.Eye exam is current. Hypertension This is a chronic problem. The current episode started more than 1 year ago. The problem is unchanged. The problem is controlled. Associated symptoms include peripheral edema. Pertinent negatives include no blurred vision or shortness of breath. There are no associated agents to hypertension. Risk factors for coronary artery disease include diabetes mellitus, dyslipidemia, male gender and obesity. Past treatments include diuretics and angiotensin blockers. The current treatment provides significant improvement. There are no compliance problems. There is no history of kidney disease or CAD/OR. SUBJECTIVE: MEDICATIONS: Current Outpatient Medications Medication Instructions albuterol HFA 90 mcg/act inhaler 1 puff, Every 6 hours PRN atorvastatin (LIPITOR) 40 mg, Oral, Every evening cetirizine (ZYRTEC) 10 mg, Oral, Daily dicyclomine (BENTYL) 20 mg, 3 times daily fluticasone (Flonase) 50 MCG/ACT nasal spray 2 sprays, Each Nostril, Daily, Shake gently. Before first use, prime pump. After use, clean tip and replace cap. fluticasone (Flovent) 110 MCG/ACT inhaler 1 puff, 2 times daily RT glipiZIDE (GLUCOTROL) 10 mg, Oral, 2 times daily before meals hydroCHLOROthiazide (HYDRODIURIL) 25 mg, Oral, Daily ketoconazole (NIZOral) 2 % cream 1 application , Daily meloxicam (MOBIC) 15 mg, Oral, Daily metFORMIN (Glucophage) 1000 MG tablet 1 tablet, 2 times daily with meals Ozempic (1 MG/DOSE) 1 mg, Subcutaneous, Weekly valsartan (DIOVAN) 160 mg, Oral, Daily ALLERGIES: Allergies Allergen Reactions Amoxicillin Cough, Rash, Swelling and Wheezing REVIEW OF SYMPTOMS: Review of Systems Constitutional: Positive for fatigue. Negative for activity change, appetite change and unexpected weight change. HENT: Negative for ear pain, nosebleeds, sneezing, trouble swallowing and voice change. Eyes: Negative for blurred vision, pain, discharge and visual disturbance. Respiratory: Negative for apnea, chest tightness, shortness of breath and wheezing. Cardiovascular: Positive for leg swelling. Gastrointestinal: Negative for abdominal distention, blood in stool, constipation and diarrhea. Genitourinary: Negative for decreased urine volume, difficulty urinating, dysuria and hematuria. Musculoskeletal: Positive for arthralgias. Skin: Negative for color change. Neurological: Negative for dizziness, tremors and seizures. Psychiatric/Behavioral: Negative for agitation, decreased concentration, hallucinations, self-injury and suicidal ideas. The patient is not nervous/anxious. Hematological: Negative for adenopathy. Does not bruise/bleed easily. Endocrine: Negative for cold intolerance, heat intolerance, polydipsia, polyphagia and polyuria. Allergic/Immunologic: Negative for environmental allergies and food allergies. PAST MEDICAL HISTORY Past Medical History: Diagnosis Date Anemia Asthma in adult without complication, unspecified asthma severity, unspecified whether persistent ([facility] [place]) Attention deficit disorder (ADD) in adult Diagnosed 13 years ago. Pt was on ritalin and wellbutrin. Pt states he still has symptoms, but since he switched jobs he has no issue. No new issues since last visit. Elevated ferritin History of kidney stones HLD (hyperlipidemia) ([facility] [place]) 02/25/2023 NO issues at this time. Pt takes meds regularly. Previous Hx as below No issues at this time. Takes his meds daily. Previous Hx as below No issues today. Previous Hx as below No issues with his lipitor. Takes his meds daily. Hypertension, benign (CMS/HCC) Lazy eye, left Still seeing Optho. Previous Hx as below Pt states optho is helping him. No issues. Previous hx Pt had corrective surgery which did not completely fix the issue. It is better. Pt sees Optho. No changes since last visit. Lower extremity edema Morbid obesity with body mass index (BMI) of 40.0 to 49.9 (CMS/HCC) Onychomycosis of toenail L great toe SK (seborrheic keratosis) Pt states he has a spot on his L presybeterian that comes up. Its raised and itchy. Pt states it rubs on his glasses. He states he picks at it. Derm is wanting a biopsy. He is schedule for this. Sleep apnea, obstructive Type 2 diabetes mellitus with peripheral neuropathy (CMS/HCC) Past Surgical History: Procedure Laterality Date ANKLE SURGERY [facility]/Dr. Saenz Right flexor hallucis longus longus tendon [...] other family member. OBJECTIVE: Visit Vitals BP 132/80 (BP Location: Left arm, Patient Position: Sitting, BP Cuff Size: Large adult) Pulse 66 Temp 98.4 F (Temporal) Resp 22 Ht 5' 8 Wt 313 lb 12.8 oz SpO2 98% BMI 47.71 kg/m Smoking Status Former BSA 2.61 m Physical Exam Vitals and nursing note reviewed. Constitutional: General: He is not in acute distress. Appearance: Normal appearance. He is obese. He is not ill-appearing, toxic-appearing or diaphoretic. HENT: Head: Normocephalic. Right Ear: External ear normal. Left Ear: External ear normal. Nose: Nose normal. Mouth/Throat: Mouth: Mucous membranes are moist. Pharynx: Oropharynx is clear. Eyes: Extraocular Movements: Extraocular movements intact. Conjunctiva/sclera: Conjunctivae normal. Neck: Vascular: No carotid bruit. Cardiovascular: Rate and Rhythm: Normal rate and regular rhythm. Pulses: Normal pulses. Heart sounds: Normal heart sounds. No murmur heard. Pulmonary: Effort: Pulmonary effort is normal. No respiratory distress. Breath sounds: Normal breath sounds. No wheezing. Abdominal: General: Bowel sounds are normal. There is no distension. Palpations: Abdomen is soft. There is no mass. Tenderness: There is no abdominal tenderness. Musculoskeletal: Cervical back: Neck supple. Right lower leg: Edema present. Left lower leg: Edema present. Comments: Callouses bilat 2nd toes Lymphadenopathy: Cervical: No cervical adenopathy. Skin: General: Skin is warm and dry. Capillary Refill: Capillary refill takes 2 to 3 seconds. Neurological: General: No focal deficit present. Mental Status: He is alert. Psychiatric: Mood and Affect: Mood normal. Behavior: Behavior normal. Thought Content: Thought content normal. Judgment: Judgment normal. ASSESSMENT AND PLAN: No follow-ups on file. Problem List Items Addressed This Visit Sleep apnea, obstructive You have a diagnosis of obstructive sleep apnea. It is recommended that you wear your PAP device any time while in bed sleeping. Not using the PAP device can increase your risk of elevated/uncontrolled high blood pressure, atrial fibrillation, heart attack, stroke, or sudden . Compliance with PAP: yes How many hours of use per night: 8 Do you feel more refreshed in the morning: not really Company that supplies your machine and tubing/filters etc: [employer] Doctor that manages your BARRERA: Vandnaa Type 2 diabetes mellitus with diabetic polyneuropathy (CMS/HCC) No current meds Recommend good glycemic control Freq foot inspections Relevant Medications semaglutide (Ozempic, 1 MG/DOSE,) 4 MG/3ML solution pen-injector Hypertension, benign (CMS/HCC) - Primary Please check blood pressure daily and record DASH diet Limit caffeine Take medication as directed Contact office if chest pain, pressure, dizziness, shortness of breath, swelling legs Recommend slow position changes Current meds: hydrochlorothiazide, valsartan Relevant Medications aspirin 81 MG EC tablet hydroCHLOROthiazide (HYDRODiuril) 25 MG tablet valsartan (Diovan) 160 MG tablet Other Relevant Orders Comprehensive metabolic panel Urinalysis with reflex microscopic (clean catch) Microalbumin / creatinine, urine ratio Body mass index (BMI) 45.0-49.9, adult ([facility] [place]) HLD (hyperlipidemia) ([facility] [place]) Statin therapy Check labs yearly and prn dose changes Relevant Medications atorvastatin (Lipitor) 40 MG tablet Other Relevant Orders Comprehensive metabolic panel Lipid panel Lower extremity edema Elevate legs as much as possible, compression stockings limit sodium , diuretic therapy as well Relevant Medications hydroCHLOROthiazide (HYDRODiuril) 25 MG tablet Type 2 diabetes mellitus without complication, without long-term current use of insulin ([facility] [place]) Check blood sugars daily, notify if <70 or >200. Take medications (pills or insulin) as directed. Monitor for s/s of hypoglycemia (sweaty, dizziness, nausea, vomiting, or shakiness). Watch for increase in thirst, urination, or appetite. Inspect feet frequently monitoring for open wounds , and also recommend yearly eye exam. Pt should attempt to remain as physically active as chronic conditions allow, as well as trying to follow a diet low in carbohydrates, and simple sugars. Current meds: asa, statin, arb, metformin, ozempic A1c 10% 04/01/24 Relevant Medications aspirin 81 MG EC tablet glipiZIDE (Glucotrol) 10 MG tablet metFORMIN (Glucophage) 1000 MG tablet Blood Glucose Monitoring Suppl (True Metrix Go Glucose Meter) w/Device kit glucose blood (True Metrix Blood Glucose Test) test strip Lancets 30G misc Other Relevant Orders POCT glycosylated hemoglobin (Hb A1C) docked device (Completed) CBC and differential Comprehensive metabolic panel Lipid panel Urinalysis with reflex microscopic (clean catch) Microalbumin / creatinine, urine ratio Primary osteoarthritis involving multiple joints Relevant Medications meloxicam (Mobic) 15 MG tablet Environmental and seasonal allergies Relevant Medications cetirizine (ZyrTEC) 10 MG tablet fluticasone (Flonase) 50 MCG/ACT nasal spray Morbid (severe) obesity due to excess calories ([facility] [place]) You have a diagnosis of obstructive sleep apnea. It is recommended that you wear your PAP device any time while in bed sleeping. Not using the PAP device can increase your risk of elevated/uncontrolled high blood pressure, atrial fibrillation, heart attack, stroke, or sudden . Compliance with PAP: How many hours of use per night: Do you feel more refreshed in the morning: Company that supplies your machine and tubing/filters etc: Doctor that manages your BARRERA: Other Visit Diagnoses Type 2 diabetes mellitus with peripheral neuropathy ([facility] [place]) Relevant Medications semaglutide (Ozempic, 1 MG/DOSE,) 4 MG/3ML solution pen-injector Associated Problem(s): HLD (hyperlipidemia) ([facility] [place]) Statin therapy Check labs yearly and prn dose changes Associated Problem(s): Type 2 diabetes mellitus without complication, without long-term current use of insulin ([facility] [place]) Check blood sugars daily, notify if <70 or >200. Take medications (pills or insulin) as directed. Monitor for s/s of hypoglycemia (sweaty, dizziness, nausea, vomiting, or shakiness). Watch for increase in thirst, urination, or appetite. Inspect feet frequently monitoring for open wounds , and also recommend yearly eye exam. Pt should attempt to remain as physically active as chronic conditions allow, as well as trying to follow a diet low in carbohydrates, and simple sugars. Current meds: asa, statin, arb, metformin, ozempic A1c 10% 04/01/24, often times forgets evening dose of meds, will change to take at time when he gets home Associated Problem(s): Morbid (severe) obesity due to excess calories ([facility] [place]) You have a diagnosis of obstructive sleep apnea. It is recommended that you wear your PAP device any time while in bed sleeping. Not using the PAP device can increase your risk of elevated/uncontrolled high blood pressure, atrial fibrillation, heart attack, stroke, or sudden . Compliance with PAP: How many hours of use per night: Do you feel more refreshed in the morning: Company that supplies your machine and tubing/filters etc: Doctor that manages your BARRERA: Associated Problem(s): Lower extremity edema Elevate legs as much as possible, compression stockings limit sodium , diuretic therapy as well Associated Problem(s): Hypertension, benign (CMS/HCC) Please check blood pressure daily and record DASH diet Limit caffeine Take medication as directed Contact office if chest pain, pressure, dizziness, shortness of breath, swelling legs Recommend slow position changes Current meds: hydrochlorothiazide, valsartan Associated Problem(s): Type 2 diabetes mellitus with diabetic polyneuropathy (CMS/HCC) No current meds Recommend good glycemic control Freq foot inspections documented in this encounter [facility] 04-01-2024 Instructions Vandana Almanza NP - 04/01/2024 3:00 PM EST Take your diabetic meds: am when you get up and the evening doses can be taken when you get home 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 documented in this encounter [facility] 12-31-2023 History of Presen t illness Narrative Associated Problem(s): Environmental and seasonal allergies Stop denise trial OTC zyrtec, and flonase nasal spray Associated Problem(s): Hypertension, benign (CMS/HCC) Please check blood pressure daily and record DASH diet Limit caffeine Take medication as directed Contact office if chest pain, pressure, dizziness, shortness of breath, swelling legs Recommend slow position changes I think elevation today may be more related to taking Sudafed decongestant ??meloxicam Have him stop by pharmacy to trial decongestant for HPB Stop by office in 2 weeks for blood pressure check Head cold-2weeks now. Symptoms include-stuffy/runny nose, headache, sinus pressure, left ear plugged, pain, cough, sore glands, drainage Pt has been taking otc sudafed and benadryl Benadryl has been helping more so, however he feels groggy Images from the original note were not included. Pita Harden is a 58 y.o. male presents with chief complaint of No chief complaint on file. HPI: URI: head cold, over 2 weeks, unsure if allergy related, no fever that he knows of, sinus pressure congestion, no color mucus it is clear, no cough, no chest pain/pressure or dyspnea. Has been taking sudafed as well as benadryl has been helping symptoms. No NVD Arthritis pain: mobic has been helping his arthritis pain HTN: no LILLY, chest pain/pressure has been compliant with taking meds DM: blood sugars daily, taking ozempic, metformin, glucatrol , AM reads: 200-250 , 10am 70's SUBJECTIVE: MEDICATIONS: Current Outpatient Medications Medication Instructions albuterol HFA 90 mcg/act inhaler 1 puff, Inhalation, Every 6 hours PRN atorvastatin (LIPITOR) 40 mg, Oral, Every evening Continuous Blood Gluc Sensor (FreeStyle Jean 14 Day Sensor) misc dicyclomine (BENTYL) 20 mg, Oral, 3 times daily fluticasone (Flovent) 110 MCG/ACT inhaler 1 puff, Inhalation, 2 times daily RT, Rinse mouth with water after use to reduce aftertaste and incidence of candidiasis. Do not swallow. glipiZIDE (GLUCOTROL) 10 mg, Oral, 2 times daily before meals hydroCHLOROthiazide (HYDRODIURIL) 25 mg, Oral, Daily ketoconazole (NIZOral) 2 % cream 1 application , Topical, Daily meloxicam (MOBIC) 15 mg, Daily metFORMIN (Glucophage) 1000 MG tablet 1 tablet, Oral, 2 times daily with meals omeprazole (PRILOSEC) 20 mg, Oral, Daily before breakfast Ozempic (1 MG/DOSE) 1 mg, Subcutaneous, Weekly valsartan (DIOVAN) 160 mg, Oral, Daily ALLERGIES: Allergies Allergen Reactions Amoxicillin Cough, Rash, Swelling and Wheezing REVIEW OF SYMPTOMS: Review of Systems Constitutional: Negative for activity change, appetite change and unexpected weight change. HENT: Positive for rhinorrhea and sneezing. Negative for ear pain, nosebleeds, trouble swallowing and voice change. Eyes: Negative for pain, discharge and visual disturbance. Respiratory: Positive for cough (occ). Negative for apnea, chest tightness and wheezing. Cardiovascular: Positive for leg swelling. Gastrointestinal: Negative for abdominal distention, blood in stool, constipation and diarrhea. Genitourinary: Negative for decreased urine volume, difficulty urinating, dysuria and hematuria. Musculoskeletal: Positive for arthralgias. Skin: Negative for color change and rash. Neurological: Negative for dizziness, tremors and seizures. Psychiatric/Behavioral: Negative for agitation, decreased concentration, hallucinations, self-injury and suicidal ideas. The patient is not nervous/anxious. Hematological: Negative for adenopathy. Does not bruise/bleed easily. Endocrine: Negative for cold intolerance, heat intolerance, polydipsia and polyuria. Allergic/Immunologic: Negative for environmental allergies and food allergies. PAST MEDICAL HISTORY Past Medical History: Diagnosis Date Anemia Asthma in adult without complication, unspecified asthma severity, unspecified whether persistent ([facility]/HCC) Attention deficit disorder (ADD) in adult Diagnosed 13 years ago. Pt was on ritalin and wellbutrin. Pt states he still has symptoms, but since he switched jobs he has no issue. No new issues since last visit. Elevated ferritin History of kidney stones HLD (hyperlipidemia) ([facility] [place]) 02/25/2023 NO issues at this time. Pt takes meds regularly. Previous Hx as below No issues at this time. Takes his meds daily. Previous Hx as below No issues today. Previous Hx as below No issues with his lipitor. Takes his meds daily. Hypertension, benign (CMS/HCC) Lazy eye, left Still seeing Optho. Previous Hx as below Pt states optho is helping him. No issues. Previous hx Pt had corrective surgery which did not completely fix the issue. It is better. Pt sees Optho. No changes since last visit. Lower extremity edema Morbid obesity with body mass index (BMI) of 40.0 to 49.9 ([facility] [place]) Onychomycosis of toenail L great toe SK (seborrheic keratosis) Pt states he has a spot on his L presybeterian that comes up. Its raised and itchy. Pt states it rubs on his glasses. He states he picks at it. Derm is wanting a biopsy. He is schedule for this. Sleep apnea, obstructive Type 2 diabetes mellitus with peripheral neuropathy ([facility] [place]) Past Surgical History: Procedure Laterality Date ANKLE SURGERY [facility]/Dr. Saenz Right flexor hallucis longus longus tendon [...] other family member. OBJECTIVE: Visit Vitals BP 164/88 (BP Location: Left arm, Patient Position: Sitting, BP Cuff Size: Adult long) Pulse 91 Temp 98.8 F (Temporal) Resp 19 Ht 5' 8 Wt 316 lb 3.2 oz SpO2 99% BMI 48.08 kg/m Smoking Status Former BSA 2.62 m Physical Exam Vitals and nursing note reviewed. Constitutional: General: He is not in acute distress. Appearance: Normal appearance. He is obese. HENT: Head: Normocephalic. Right Ear: Tympanic membrane, ear canal and external ear normal. Left Ear: Tympanic membrane, ear canal and external ear normal. Nose: Rhinorrhea present. No congestion. Comments: Palor, boggy Mouth/Throat: Mouth: Mucous membranes are moist. Pharynx: Oropharynx is clear. No oropharyngeal exudate or posterior oropharyngeal erythema. Eyes: Extraocular Movements: Extraocular movements intact. Conjunctiva/sclera: Conjunctivae normal. Neck: Vascular: No carotid bruit. Cardiovascular: Rate and Rhythm: Normal rate and regular rhythm. Pulses: Normal pulses. Heart sounds: Normal heart sounds. Pulmonary: Effort: Pulmonary effort is normal. Breath sounds: Normal breath sounds. No wheezing. Abdominal: General: Bowel sounds are normal. There is no distension. Palpations: Abdomen is soft. There is no mass. Tenderness: There is no abdominal tenderness. Comments: Obese protuberant Musculoskeletal: Cervical back: Neck supple. Right lower leg: Edema present. Left lower leg: Edema present. Lymphadenopathy: Cervical: No cervical adenopathy. Skin: General: Skin is warm and dry. [...] 2 diabetes mellitus with peripheral neuropathy (CMS/HCC) Relevant Medications semaglutide (Ozempic, 1 MG/DOSE,) 4 MG/3ML solution pen-injector Continuous Glucose Sensor (FreeStyle Jean 14 Day Sensor) [facility] [place] Hypertension, benign (CMS/HCC) - Primary Please check blood pressure daily and record DASH diet Limit caffeine Take medication as directed Contact office if chest pain, pressure, dizziness, shortness of breath, swelling legs Recommend slow position changes I think elevation today may be more related to taking Sudafed decongestant ??meloxicam Have him stop by pharmacy to trial decongestant for HPB Stop by office in 2 weeks for blood pressure check Relevant Medications valsartan (Diovan) 160 MG tablet aspirin 81 MG EC tablet BMI 45.0-49.9, adult (CMS/HCC) Discussed with patient their BMI (actual, verses recommended). We have also discussed lifestyle modifications: attempts to perform physical activity as chronic conditions allow, also to monitor dietary intake: increasing protein/fruits/veggies and lowering carb intake (unless contraindicated). Limit sodas, juices, and sugary drinks. Also discussed oral medications that can be utilized for weight loss, as well as surgical options for weight loss. Type 2 diabetes mellitus without complication, without long-term current use of insulin ([facility] [place]) Check blood sugars daily, notify if <70 or >200. Take medications (pills or insulin) as directed. Monitor for s/s of hypoglycemia (sweaty, dizziness, nausea, vomiting, or shakiness). Watch for increase in thirst, urination, or appetite. Inspect feet frequently monitoring for open wounds , and also recommend yearly eye exam. Pt should attempt to remain as physically active as chronic conditions allow, as well as trying to follow a diet low in carbohydrates, and simple sugars. Relevant Medications aspirin 81 MG EC tablet Primary osteoarthritis involving multiple joints Feeling better would like to continue Will monitor if blood pressure remains elevated may need to stop if remains elevated Gastroesophageal reflux disease without esophagitis Does not take meds for this anymore Environmental and seasonal allergies Stop benadryl, trial OTC zyrtec, and flonase nasal spray Relevant Medications cetirizine (ZyrTEC) 10 MG tablet fluticasone (Flonase) 50 MCG/ACT nasal spray Associated Problem(s): Gastroesophageal reflux disease without esophagitis Does not take meds for this anymore Associated Problem(s): Primary osteoarthritis involving multiple joints Feeling better would like to continue Will monitor if blood pressure remains elevated may need to stop if remains elevated Associated Problem(s): BMI 45.0-49.9, adult ([facility] [place]) Discussed with patient their BMI (actual, verses recommended). We have also discussed lifestyle modifications: attempts to perform physical activity as chronic conditions allow, also to monitor dietary intake: increasing protein/fruits/veggies and lowering carb intake (unless contraindicated). Limit sodas, juices, and sugary drinks. Also discussed oral medications that can be utilized for weight loss, as well as surgical options for weight loss. Associated Problem(s): Type 2 diabetes mellitus without complication, without long-term current use of insulin ([facility] [place]) Check blood sugars daily, notify if <70 or >200. Take medications (pills or insulin) as directed. Monitor for s/s of hypoglycemia (sweaty, dizziness, nausea, vomiting, or shakiness). Watch for increase in thirst, urination, or appetite. Inspect feet frequently monitoring for open wounds , and also recommend yearly eye exam. Pt should attempt to remain as physically active as chronic conditions allow, as well as trying to follow a diet low in carbohydrates, and simple sugars. documented in this encounter [facility] 12-31-2023 Instructions Vandana Almanza NP - 12/31/2023 9:20 AM EST Decongestant: go back to pharmacy counter, and ask pharmacist for decongestant for people with high blood pressure Continue to monitor blood sugar For allergies: add zyrtec 10mg pill daily, and flonase nasal spray daily script sent in, and stop benadryl documented in this encounter [facility] 11-21-2023 Telephone encount er Note A1c went from 6.8 to 7.6. I would recommend trying something like the farxiga or jardiance product. Has pt checked with his insurance about Farxiga? Also his prostate blood test is normal [place] [facility] 11-21-2023 Miscellaneous Notes Formattin g of this note might be different from the original. A1c went from 6.8 to 7.6. I would recommend trying something like the farxiga or jardiance product. Has pt checked with his insurance about Farxiga? Also his prostate blood test is normal [place] documented in this encounter [facility] 11-18-2023 History of Presen t illness Narrative Associated Problem(s): Primary osteoarthritis involving multiple joints Will trial meloxicam at 15mg daily No other NSAIDS for pain Fu in 4-6 weeks If not better knee pain or hip pain, consider to ortho Associated Problem(s): Lower extremity edema Stable cont current meds Associated Problem(s): Type 2 diabetes mellitus without complication, without long-term current use of insulin ([facility] [place]) CGM does report over 80% of time in range, does have some low blood sugars usually around noon time Eats breakfast 4:30am and takes his meds then as well. [place] no dips with jardiance, however cannot afford this med even with co pay card. I have asked him to check with insurance to see if Augustine is more affordable Check A1c test Fu in 4 weeks Pt states that he is starting to feel the pain, he stated that he did a blood test for arthritis. Pt is having pain and discomfort in his left knee in the last month and a half. He is having popping and clicking in the knee. Pt is having pain from a 4 to now 6-7 in his left hip. Pt is going from day shift to afternoon shift. Pt is wanting to get a handicap plaque for his vehicle. Pt may want to talk about getting a quad cane Pita Harden is a 58 y.o. male presents with chief complaint of No chief complaint on file. HPI: C/o left knee pain and right hip pain: started with right hip pain, and then progressed to left knee pain. Feels could be related to over compensation for the hip that caused the knee.sometimes the knee can feel like it wants to give out Diabetes He presents for his follow-up diabetic visit. He has type 2 diabetes mellitus. His disease course has been fluctuating. Pertinent negatives for hypoglycemia include no dizziness, nervousness/anxiousness, seizures or tremors. (Occ, shaky feeling) Associated symptoms include polyuria. Pertinent negatives for diabetes include no blurred vision, no foot paresthesias, no polydipsia, no polyphagia, no visual change, no weakness and no weight loss. There are no hypoglycemic complications. Symptoms are stable. Pertinent negatives for diabetic complications include no CVA, heart disease, peripheral neuropathy or retinopathy. Risk factors for coronary artery disease include diabetes mellitus, dyslipidemia, hypertension, male sex and obesity. Current diabetic treatment includes oral agent (dual therapy). He is compliant with treatment all of the time. His weight is stable. His overall blood glucose range is 140-180 mg/dl. An CHRIS inhibitor/angiotensin II receptor sheila is being taken. Eye exam is current. Hypertension This is a chronic problem. The current episode started more than 1 year ago. The problem is unchanged. The problem is controlled. Associated symptoms include peripheral edema. Pertinent negatives include no blurred vision or shortness of breath. There are no associated agents to hypertension. Risk factors for coronary artery disease include diabetes mellitus, dyslipidemia, male gender and obesity. Past treatments include angiotensin blockers. The current treatment provides significant improvement. There are no compliance problems. There is no history of CAD/OR, CVA or retinopathy. SUBJECTIVE: MEDICATIONS: Current Outpatient Medications Medication Instructions albuterol HFA 90 mcg/act inhaler 1 puff, Inhalation, Every 6 hours PRN atorvastatin (LIPITOR) 40 mg, Oral, Every evening Continuous Blood Gluc Sensor (FreeStyle Jean 14 Day Sensor) misc dicyclomine (BENTYL) 20 mg, Oral, 3 times daily empagliflozin (JARDIANCE) 25 mg, Oral, Daily fluticasone (Flovent) 110 MCG/ACT inhaler 1 puff, Inhalation, 2 times daily RT, Rinse mouth with water after use to reduce aftertaste and incidence of candidiasis. Do not swallow. glipiZIDE (GLUCOTROL) 10 mg, Oral, 2 times daily before meals hydroCHLOROthiazide (HYDRODIURIL) 25 mg, Oral, Daily ibuprofen 200 MG tablet 3 tablets, Oral, Every 6 hours PRN ketoconazole (NIZOral) 2 % cream 1 application , Topical, Daily metFORMIN (Glucophage) 1000 MG tablet 1 tablet, Oral, 2 times daily with meals omeprazole (PRILOSEC) 20 mg, Oral, Daily before breakfast Ozempic (1 MG/DOSE) 1 mg, Subcutaneous, Weekly valsartan (DIOVAN) 160 mg, Oral, Daily ALLERGIES: Allergies Allergen Reactions Amoxicillin Cough, Rash, Swelling and Wheezing REVIEW OF SYMPTOMS: Review of Systems Constitutional: Negative for activity change, appetite change, unexpected weight change and weight loss. HENT: Negative for ear pain, nosebleeds, sneezing, trouble swallowing and voice change. Eyes: Negative for blurred vision, pain, discharge and visual disturbance. Respiratory: Negative for apnea, chest tightness, shortness of breath and wheezing. Cardiovascular: Positive for leg swelling. Gastrointestinal: Negative for abdominal distention, blood in stool, constipation and diarrhea. Genitourinary: Negative for decreased urine volume, difficulty urinating, dysuria and hematuria. Musculoskeletal: Positive for arthralgias. Skin: Negative for color change. Neurological: Negative for dizziness, tremors, seizures and weakness. Psychiatric/Behavioral: Negative for agitation, decreased concentration, hallucinations, self-injury and suicidal ideas. The patient is not nervous/anxious. Hematological: Negative for adenopathy. Does not bruise/bleed easily. Endocrine: Positive for polyuria. Negative for cold intolerance, heat intolerance, polydipsia and polyphagia. Allergic/Immunologic: Negative for environmental allergies and food allergies. PAST MEDICAL HISTORY Past Medical History: Diagnosis Date Anemia Asthma in adult without complication, unspecified asthma severity, unspecified whether persistent ([facility] [place]) Attention deficit disorder (ADD) in adult Diagnosed 13 years ago. Pt was on ritalin and wellbutrin. Pt states he still has symptoms, but since he switched jobs he has no issue. No new issues since last visit. Elevated ferritin History of kidney stones HLD (hyperlipidemia) ([facility] [place]) 02/25/2023 NO issues at this time. Pt takes meds regularly. Previous Hx as below No issues at this time. Takes his meds daily. Previous Hx as below No issues today. Previous Hx as below No issues with his lipitor. Takes his meds daily. Hypertension, benign ([facility] [place]) Lazy eye, left Still seeing Optho. Previous Hx as below Pt states optho is helping him. No issues. Previous hx Pt had corrective surgery which did not completely fix the issue. It is better. Pt sees Optho. No changes since last visit. Lower extremity edema Morbid obesity with body mass index (BMI) of 40.0 to 49.9 ([facility] [place]) Onychomycosis of toenail L great toe SK (seborrheic keratosis) Pt states he has a spot on his L presybeterian that comes up. Its raised and itchy. Pt states it rubs on his glasses. He states he picks at it. Derm is wanting a biopsy. He is schedule for this. Sleep apnea, obstructive Type 2 diabetes mellitus with peripheral neuropathy ([facility] [place]) Past Surgical History: Procedure Laterality Date ANKLE SURGERY [facility]/Dr. Saenz Right flexor hallucis longus longus tendon [...] other family member. OBJECTIVE: Visit Vitals BP 132/90 (BP Location: Left arm, Patient Position: Sitting, BP Cuff Size: Adult long) Pulse 79 Temp 99 F (Temporal) Resp 19 Ht 5' 8 Wt 312 lb 9.6 oz SpO2 98% BMI 47.53 kg/m Smoking Status Former BSA 2.61 m Physical Exam Vitals and nursing note reviewed. Constitutional: Appearance: Normal appearance. He is obese. HENT: Head: Normocephalic. Right Ear: External ear normal. Left Ear: External ear normal. Nose: Nose normal. Mouth/Throat: Mouth: Mucous membranes are moist. Pharynx: Oropharynx is clear. Eyes: Extraocular Movements: Extraocular movements intact. Conjunctiva/sclera: Conjunctivae normal. Neck: Vascular: No carotid bruit. Cardiovascular: Rate and Rhythm: Normal rate and regular rhythm. Pulses: Normal pulses. Heart sounds: Normal heart sounds. Pulmonary: Effort: Pulmonary effort is normal. Breath sounds: Normal breath sounds. No wheezing or rales. Abdominal: General: Bowel sounds are normal. There is no distension. Palpations: Abdomen is soft. Musculoskeletal: Cervical back: Neck supple. Right lower leg: Edema present. Left lower leg: Edema present. Comments: Antalgic gait Lymphadenopathy: Cervical: No cervical adenopathy. Skin: General: Skin is warm and dry. [...] 2 diabetes mellitus with peripheral neuropathy (CMS/HCC) Relevant Medications semaglutide (Ozempic, 1 MG/DOSE,) 4 MG/3ML solution pen-injector BMI 45.0-49.9, adult (CMS/HCC) Lower extremity edema Stable cont current meds Type 2 diabetes mellitus without complication, without long-term current use of insulin (CMS/HCC) - Primary CGM does report over 80% of time in range, does have some low blood sugars usually around noon time Eats breakfast 4:30am and takes his meds then as well. [place] no dips with jardiance, however cannot afford this med even with co pay card. I have asked him to check with insurance to see if Marcoxiga is more affordable Check A1c test Fu in 4 weeks Relevant Orders Hemoglobin A1c Prostate cancer screening Relevant Orders PSA Primary osteoarthritis involving multiple joints Will trial meloxicam at 15mg daily No other NSAIDS for pain Fu in 4-6 weeks If not better knee pain or hip pain, consider to ortho Relevant Medications meloxicam (Mobic) 15 MG tablet documented in this encounter [facility] 03-31-2023 History of Presen t illness Narrative Associated Problem(s): Generalized abdominal pain Has upcoming GI appt Nausea now, possibly related to med side effects? Possible gastritis? Stressors in last year with mother passing a way Will trial addition of omeprazole Fu in 6 weeks Associated Problem(s): Microscopic hematuria Repeat urine as well as KUB Associated Problem(s): Type 2 diabetes mellitus with peripheral neuropathy ([facility] [place]) Having some episodes of hypoglycemia, explained to patient likely inadequate protein intake, ideas given No med changes Again reviewed how meds work, why important to try to eat Pt stated has trouble remember to take afternoon medication at times. Pt is needing a refill on his ozempic Images from the original note were not included. Pitamadi Harden is a 57 y.o. male presents [...] complication, unspecified asthma severity, unspecified whether persistent ([facility] [place]) Attention deficit disorder (ADD) in adult Diagnosed 13 years ago. Pt was on ritalin and wellbutrin. Pt states he still has symptoms, but since he switched jobs he has no issue. No new issues since last visit. Elevated ferritin History of kidney stones HLD (hyperlipidemia) ([facility] [place]) 02/25/2023 NO issues at this time. Pt takes meds regularly. Previous Hx as below No issues at this time. Takes his meds daily. Previous Hx as below No issues today. Previous Hx as below No issues with his lipitor. Takes his meds daily. Hypertension, benign ([facility] [place]) Lazy eye, left Still seeing Optho. Previous Hx as below Pt states optho is helping him. No issues. Previous hx Pt had corrective surgery which did not completely fix the issue. It is better. Pt sees Optho. No changes since last visit. Lower extremity edema Morbid obesity with body mass index (BMI) of 40.0 to 49.9 ([facility] [place]) Onychomycosis of toenail L great toe SK (seborrheic keratosis) Pt states he has a spot on his L pres[place] that comes up. Its raised and itchy. Pt states it rubs on his glasses. He states he picks at it. Derm is wanting a biopsy. He is schedule for this. Sleep apnea, obstructive Type 2 diabetes mellitus with peripheral neuropathy ([facility] [place]) Past Surgical History: Procedure Laterality Date ANKLE SURGERY [facility]/Dr. Saenz Right flexor hallucis longus longus tendon [...] well as KUB documented in this encounter [facility] Evaluation note Diagnosis Type 2 diabetes mellitus with peripheral neuropathy (CMS/HCC)- Primary BMI 45.0-49.9, adult ([facility]/HCC) Microscopic hematuria Generalized abdominal pain Abdominal pain, generalized documented in this encounter [facility] HealthcareEvaluation note* Diagnosis Onset Date Resolution Status Abdominal pain acute Nausea acute Abdominal pain acute [facility] Work Phone: Evaluation note* Diagnosis Type 2 diabetes mellitus without complication, without long-term current use of insulin ([facility] [place])- Primary Prostate cancer screening Special screening for malignant neoplasm of prostate 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 peripheral neuropathy (CMS/HCC) BMI 45.0-49.9, adult ([facility]/HCC) Lower extremity edema Edema documented in this encounter [facility] HealthcareEvaluation note* Diagnosis Type 2 diabetes mellitus with peripheral neuropathy ([facility]/HCC)- Primary Hypertension, benign (CMS/HCC) Essential hypertension, benign Mixed hyperlipidemia ([facility]/HCC) Mixed hyperlipidemia Morbid obesity with body mass index (BMI) of 40.0 to 49.9 ([facility]/HCC) Sleep apnea, obstructive Obstructive sleep apnea (adult) (pediatric) Generalized abdominal pain Abdominal pain, generalized Type 2 diabetes mellitus with peripheral neuropathy (CMS/HCC)- Primary BMI 45.0-49.9, adult (CMS/HCC) Microscopic hematuria Generalized abdominal pain Abdominal pain, generalized BMI 45.0-49.9, adult (CMS/HCC)- Primary Hypertension, benign (CMS/HCC) Essential hypertension, benign Type 2 diabetes mellitus without complication, without long-term current use of insulin (CMS/HCC) Subacute maxillary sinusitis Type 2 diabetes mellitus without complication, without long-term current use of insulin (CMS/HCC)- Primary Arthralgia, unspecified joint Lower extremity edema Edema BMI 45.0-49.9, adult (CMS/HCC) Hypertension, benign (CMS/HCC) Essential hypertension, benign Colon cancer screening Special screening for malignant neoplasms, colon Type 2 diabetes mellitus without complication, without long-term current use of insulin (CMS/HCC)- Primary Prostate cancer screening Special screening for malignant neoplasm of prostate 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 peripheral neuropathy (CMS/HCC) BMI 45.0-49.9, adult (CMS/HCC) Lower extremity edema Edema Mixed hyperlipidemia (CMS/HCC) Mixed hyperlipidemia Hypertension, benign (CMS/HCC)- Primary Essential hypertension, benign BMI 45.0-49.9, adult (CMS/HCC) Primary osteoarthritis involving multiple joints Gastroesophageal reflux disease without esophagitis Esophageal reflux Type 2 diabetes mellitus without complication, without long-term current use of insulin (CMS/HCC) Type 2 diabetes mellitus with peripheral neuropathy (CMS/HCC) Environmental and seasonal allergies documented in this encounter [facility] HealthcareEvaluation note* Diagnosis Type 2 diabetes mellitus with peripheral neuropathy (CMS/HCC)- Primary Hypertension, benign (CMS/HCC) Essential hypertension, benign Mixed hyperlipidemia (CMS/HCC) Mixed hyperlipidemia Morbid obesity with body mass index (BMI) of 40.0 to 49.9 (CMS/HCC) Sleep apnea, obstructive Obstructive sleep apnea (adult) (pediatric) Generalized abdominal pain Abdominal pain, generalized Type 2 diabetes mellitus with peripheral neuropathy (CMS/HCC)- Primary BMI 45.0-49.9, adult (CMS/HCC) Microscopic hematuria Generalized abdominal pain Abdominal pain, generalized BMI 45.0-49.9, adult (CMS/HCC)- Primary Hypertension, benign (CMS/HCC) Essential hypertension, benign Type 2 diabetes mellitus without complication, without long-term current use of insulin (CMS/HCC) Subacute maxillary sinusitis Type 2 diabetes mellitus without complication, without long-term current use of insulin (CMS/HCC)- Primary Arthralgia, unspecified joint Lower extremity edema Edema BMI 45.0-49.9, adult (CMS/HCC) Hypertension, benign (CMS/HCC) Essential hypertension, benign Colon cancer screening Special screening for malignant neoplasms, colon Type 2 diabetes mellitus without complication, without long-term current use of insulin (CMS/HCC)- Primary Prostate cancer screening Special screening for malignant neoplasm of prostate 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 peripheral neuropathy (CMS/HCC) BMI 45.0-49.9, adult (CMS/HCC) Lower extremity edema Edema Hypertension, benign (CMS/HCC)- Primary Essential hypertension, benign BMI 45.0-49.9, adult (CMS/HCC) Primary osteoarthritis involving multiple joints Gastroesophageal reflux disease without esophagitis Esophageal reflux Type 2 diabetes mellitus without complication, without long-term current use of insulin (CMS/HCC) Type 2 diabetes mellitus with peripheral neuropathy (CMS/HCC) Environmental and seasonal allergies documented in this encounter [facility] HealthcareEvaluation note* Diagnosis Type 2 diabetes mellitus without complication, without long-term current use of insulin (CMS/HCC) Lower extremity edema Edema Hypertension, benign (CMS/HCC) Essential hypertension, benign documented in this encounter [facility] HealthcareEvaluation note* Diagnosis Type 2 diabetes mellitus with peripheral neuropathy (CMS/HCC) documented in this encounter [facility] HealthcareEvaluation note* Diagnosis Type 2 diabetes mellitus with peripheral neuropathy (CMS/HCC)- Primary Hypertension, benign (CMS/HCC) Essential hypertension, benign Mixed hyperlipidemia (CMS/HCC) Mixed hyperlipidemia Morbid obesity with body mass index (BMI) of 40.0 to 49.9 (CMS/HCC) Sleep apnea, obstructive Obstructive sleep apnea (adult) (pediatric) Generalized abdominal pain Abdominal pain, generalized Type 2 diabetes mellitus with peripheral neuropathy (CMS/HCC)- Primary BMI 45.0-49.9, adult (CMS/HCC) Microscopic hematuria Generalized abdominal pain Abdominal pain, generalized BMI 45.0-49.9, adult (CMS/HCC)- Primary Hypertension, benign (CMS/HCC) Essential hypertension, benign Type 2 diabetes mellitus without complication, without long-term current use of insulin (CMS/HCC) Subacute maxillary sinusitis Type 2 diabetes mellitus without complication, without long-term current use of insulin (CMS/HCC)- Primary Arthralgia, unspecified joint Lower extremity edema Edema BMI 45.0-49.9, adult (CMS/HCC) Hypertension, benign (CMS/HCC) Essential hypertension, benign Colon cancer screening Special screening for malignant neoplasms, colon Type 2 diabetes mellitus without complication, without long-term current use of insulin (CMS/HCC)- Primary Prostate cancer screening Special screening for malignant neoplasm of prostate 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 peripheral neuropathy (CMS/HCC) BMI 45.0-49.9, adult (CMS/HCC) Lower extremity edema Edema Hypertension, benign (CMS/HCC)- Primary Essential hypertension, benign BMI 45.0-49.9, adult (CMS/HCC) Primary osteoarthritis involving multiple joints Gastroesophageal reflux disease without esophagitis Esophageal reflux Type 2 diabetes mellitus without complication, without long-term current use of insulin (CMS/HCC) Type 2 diabetes mellitus with peripheral neuropathy (CMS/HCC) Environmental and seasonal allergies Primary osteoarthritis involving multiple joints- Primary documented in this encounter [facility] HealthcareEvaluation note* Diagnosis Type 2 diabetes mellitus with peripheral neuropathy (CMS/HCC)- Primary Hypertension, benign (CMS/HCC) Essential hypertension, benign Mixed hyperlipidemia (CMS/HCC) Mixed hyperlipidemia Morbid obesity with body mass index (BMI) of 40.0 to 49.9 (CMS/HCC) Sleep apnea, obstructive Obstructive sleep apnea (adult) (pediatric) Generalized abdominal pain Abdominal pain, generalized Type 2 diabetes mellitus with peripheral neuropathy (CMS/HCC)- Primary BMI 45.0-49.9, adult (CMS/HCC) Microscopic hematuria Generalized abdominal pain Abdominal pain, generalized BMI 45.0-49.9, adult (CMS/HCC)- Primary Hypertension, benign (CMS/HCC) Essential hypertension, benign Type 2 diabetes mellitus without complication, without long-term current use of insulin (CMS/HCC) Subacute maxillary sinusitis Type 2 diabetes mellitus without complication, without long-term current use of insulin (CMS/HCC)- Primary Arthralgia, unspecified joint Lower extremity edema Edema BMI 45.0-49.9, adult (CMS/HCC) Hypertension, benign (CMS/HCC) Essential hypertension, benign Colon cancer screening Special screening for malignant neoplasms, colon Type 2 diabetes mellitus without complication, without long-term current use of insulin (CMS/HCC)- Primary Prostate cancer screening Special screening for malignant neoplasm of prostate 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 peripheral neuropathy (CMS/HCC) BMI 45.0-49.9, adult (CMS/HCC) Lower extremity edema Edema Hypertension, benign (CMS/HCC)- Primary Essential hypertension, benign BMI 45.0-49.9, adult (CMS/HCC) Primary osteoarthritis involving multiple joints Gastroesophageal reflux disease without esophagitis Esophageal reflux Type 2 diabetes mellitus without complication, without long-term current use of insulin (CMS/HCC) Type 2 diabetes mellitus with peripheral neuropathy (CMS/HCC) Environmental and seasonal allergies Type 2 diabetes mellitus without complication, without long-term current use of insulin ([facility] [place])- Primary Type 2 diabetes mellitus with diabetic polyneuropathy ([facility] [place]) Morbid (severe) obesity due to excess calories ([facility] [place]) Body mass index (BMI) 45.0-49.9, adult ([facility] [place]) Hypertension, benign ([facility] [place]) Essential hypertension, benign Lower extremity edema Edema Mixed hyperlipidemia ([facility] [place]) Mixed hyperlipidemia Environmental and seasonal allergies 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 peripheral neuropathy ([facility] [place]) Sleep apnea, obstructive Obstructive sleep apnea (adult) (pediatric) documented in this encounter [facility] Summary Purpose Family History No Family History Records FoundNo Family History Records Found Advance Directives No Advanced Directives Records Found Advance Directive Response Recorded Date/ Time Advance Directives No March 12, 2023 1:00pm Chief Complaint and Reason for Visit Chief Complaint abdominal pain/Vandana Laiquinn referred 1 month follow up Reason for Visit Abdominal pain Nausea Abdominal pain Additional Source Comments (unrecognized sect ion and content) No Status Records FoundNo Status Records Found INFORMATION SOURCE (unrecogn ized section and content) DATE CREATED AUTHOR 04/12/2022 [facility] DATE CREATED AUTHOR AUTHOR'S ORGANIZ ATION 04/03/2024 [facility] Care Teams (unrecognized sec tion and content) [employer] Relationship Specialty Start Date End Date Shaikh Cervantes MD [address] [place] [phone] PCP - General Internal Medicine 03/31/23 [employer] Relationship Specialty Start Date End Date Shaikh Cervantes MD [address] [place] [phone] PCP - General Internal Medicine 03/31/23 [employer] Relationship Specialty Start Date End Date Shaikh Cervantes MD [address] [place] [address] PCP - General Internal Medicine 03/31/23 Team [...] May 20, 2023 End: May 20, 2023 [employer]andy [employer] Relationship Specialty Start Date End Date Justino Silva MD [address] [place] [phone] PCP - General Family Medicine 11/17/23 Vandana Almanza NP [address] [place] [phone] Nurse Practitioner Family Medicine 11/17/23 [employer]andy [employer] Relationship Specialty Start Date End Date Justino Silva MD [address] [place] [phone] PCP - General Family Medicine 11/17/23 Vandana Almanza NP [address] [place] [phone] Nurse Practitioner Family Medicine 11/17/23 [employer] Relationship Specialty Start Date End Date Justino Silva MD [address] [place] [phone] PCP - General Family Medicine 11/17/23 Vandana Almanza NP [address] [place] [phone] Nurse Practitioner Family Medicine 11/17/23 [employer] Relationship Specialty Start Date End Date Justino Silva MD [address] [place] [address] PCP - General Family Medicine 11/17/23 Vandana Almanza NP [address] [place] [address] Nurse Practitioner Family Medicine 11/17/23 [employer]andy [employer] Relationship Specialty Start Date End Date Justino Silva MD [address] [place] [phone] PCP - General Family Medicine 11/17/23 Vandana Almanza NP [address] [place] [phone] Nurse Practitioner Family Medicine 11/17/23 [employer] Relationship Specialty Start Date End Date Justino Silva MD [address] [place] [phone] PCP - General Family Medicine 11/17/23 Vandana Almanza NP [address] [place] [phone] Nurse Practitioner Family Medicine 11/17/23 Candy [employer] Relationship Specialty Start Date End Date Justino Silva MD [address] [place] [phone] PCP - General Family Medicine 11/17/23 Vandana Almanza NP [address] [place] [phone] Nurse Practitioner Family Medicine 11/17/23 Candy C[employer] Hand Relationship Specialty Start Date End Date Shaikh Cervantes MD [address] [place] [phone] PCP - General Internal Medicine 03/31/23 Candy C[employer] Relationship Specialty Start Date End Date Shaikh Cervantes MD [address] [place] [phone] PCP - General Internal Medicine 03/31/23 Candy [employer] Relationship Specialty Start Date End Date Justino Silva MD [address] [place] [phone] PCP - General Family Medicine 11/17/23 Vandana Almanza NP [address] [place] [address] Nurse Practitioner Family Medicine 11/17/23 Candy Cutter Hand Relationship Specialty Start Date End Date Justino Silva MD [address] [place] [phone] PCP - General Family Medicine 11/17/23 Vandana Almanza NP [address] [place] [address] Nurse Practitioner Family Medicine 11/17/23 Candy C[employer] Relationship Specialty Start Date End Date Justino Silva MD [address] [place] [address] PCP - General Family Medicine 11/17/23 Vandana Almanza NP [address] [place] [phone] Nurse Practitioner Family Medicine 11/17/23 Goals (unrecognized section and content) Goals may be documented in a n alternate section Reason for Visit (unrecogniz ed section and content) Reason Onset Date Comments Med Refill 12/30/2023 Reason Comments Med Refill Reason Comments Diabetes FOR RECORDS PERTAINING TO PATIENTS WHO ARE [...] BE BASED ON THE PRIMARY CLINICAL RECORDS. [employer] provides no warranty or guarantee of the accuracy or completeness of information in this document.
[2024-04-07 09:11] LABS: Bilirubin Urine NEGATIVE (NEGATIVE); Blood Urine NEGATIVE (NEGATIVE); Clarity Urine CLEAR (CLEAR); Color Urine LT. YELLOW (YELLOW); Glucose Urine UA >=1000 mg/dL (NEGATIVE); Ketones Urine NEGATIVE (NEGATIVE); Leukocyte Esterase Urine NEGATIVE (NEGATIVE); Nitrite Urine NEGATIVE (NEGATIVE); Protein Urine NEGATIVE (NEG/TRACE); Urine Microscopic Indicated NO; Urobilinogen Urine 0.2 EU/dL (0.2-1.0); pH Urine 5.5 (5.0-9.0)
[2024-04-07 09:20] LABS: Creatinine Urine Random 84.61 mg/dL (20.00-300.00); Microalbum Creatinine Ratio Ur 40.1 mg/g (0.0-29.9); Microalbumin Urine Random 3.4 mg/dL (<=30.0)
[2024-04-07 10:10] LABS: Alanine Aminotransferase 30 U/L (16-63); Albumin Globulin Ratio 0.9; Albumin Level 3.5 g/dL (3.4-5.0); Alkaline Phosphatase 66 U/L (46-116); Anion Gap 11.9; Aspartate Amino Transferase 26 U/L (15-37); BUN Creatinine Ratio 11.9; Bilirubin Total 0.5 mg/dL (0.2-1.0); Calcium 9.2 mg/dL (8.5-10.1); Carbon Dioxide 30.6 mmol/L (21.0-32.0); Chloride 103 mmol/L (98-107); Chol HDL Ratio 3.1; Cholesterol 168 mg/dL (<=200); Estimated GFR (African America >60 (>=60 mL/min/1.73m^2); Estimated GFR (Non-African Ame >60 (>=60 mL/min/1.73m^2); Globulin 3.9 g/dL; Glucose 186 mg/dL (74-106); HDL Cholesterol 55 mg/dL (40-60); Potassium 4.5 mmol/L (3.5-5.1); Sodium 141 mmol/L (136-145); Total Protein 7.4 g/dL (6.4-8.2); Triglycerides 216 mg/dL (<=150); VLDL CHOLESTEROL 43.2 mg/dL
== END 2024-04-07 08:46 | disposition home or self-care (01) ==
LOC: LAB 08:47
PROVIDERS: PCP Nurse Practitioner; Visit Provider Nurse Practitioner
DX: E78.2 Mixed hyperlipidemia (principal); I10 Essential (primary) hypertension; E11.9 Type 2 diabetes mellitus without complications
CPT/HCPCS: 36415; 80053; 80061; 81003; 82043; 82570; 85025

== ENCOUNTER 2024-11-03 09:56 | Emergency (ER) | payer OTHER, SELFPAY ==
[2024-11-03] VITALS (22 sets, daily range): BP systolic 107–171; BP diastolic 35–84; PULSE 65–78; TEMP 36.9; O2SAT 97; BMI 41.3
--- OUTSIDE RECORDS SUMMARY | 2024-11-03 10:12 | XMS_ITS | CCD ---
Author Organization [facility] Care Team Providers Care Plastic Sewer Name Role Phone AICHHOLZ, UI DESIGNER VANDANA Admitting Unavailable AICHHOLZ, UI DESIGNER VANDANA Attending Unavailable AICHHOLZ, UI DESIGNER VANDANA Primary Care Unavailable AICHHOLZ, UI DESIGNER VANDANA Consulting Unavailable MADONNA CRUZ Consulting Unavailable AICHHOLZ, UI DESIGNER VANDANA Admitting Unavailable AICHHOLZ, UI DESIGNER VANDANA Attending Unavailable AICHHOLZ, UI DESIGNER VANDANA Primary Care Unavailable AICHHOLZ, UI DESIGNER VANDANA Consulting Unavailable AICHHOLZ, UI DESIGNER VANDANA Admitting Unavailable AICHHOLZ, UI DESIGNER VANDANA Attending Unavailable AICHHOLZ, UI DESIGNER VANDANA Primary Care Unavailable AICHHOLZ, UI DESIGNER VANDANA Consulting Unavailable Helen GALLEGOS, Primary Care Provider Shira GALLEGOS, Justino Primary Care Provider Archie LACE MENDER, Vandana Unavailable Helen GALLEGOS, Primary Care Provider AICHHOLZ, VANDANA Attending Unavailable AICHHOLZ, VANDANA Attending Unavailable AICHHOLZ, VANDANA Attending Unavailable AICHHOLZ, VANDANA Attending Unavailable Aichholz, Vandana J Primary Care Provider [phone] Michelle Almanzaa Darvin Attending Provider Allergies Allergy Classification Reported Allergen(s) Allergy Type Date of Onset Reaction(s) Facility (1 source) Amoxicillin Drug Allergy 0 [facility] Repository (20 sources) Amoxicillin Drug Allergy 8 Cough, Rash, Swelling, Wheezing [facility] Medications Current Medications Medication Drug Class(es) Dates Sig (Normalized) Sig (Original) [id number] 200 actuat albuterol 0.09 mg/actuat metered dose inhaler (20 sources) beta2-Adrenergic Agonist Start: 04-15-2023 take 1 puff(s) by inhalation every four to six hours as needed Albuterol Sulfate 90 mcg/actuation HFA aerosol inhaler Active 2 PUFF INHALATION EVERY 4-6 HOURS as needed April 15, 2023 1:00am Complies with drug therapy take 1 puff(s) by in halation every six hours for wheezing albuterol HFA 90 mcg/act inhaler Inhale 1 puff every 6 (six) hours if needed for wheezing Active aspirin 81 mg oral tablet (14 sources) Platelet Aggregation Inhibitor, Nonsteroidal Anti-inflammatory Drug Start: 10-25-2024 take 1 tablet by mouth once daily Aspirin 81 mg tablet Active 81 MG PO Daily October 25, 2024 12:00am Complies with drug therapy Start: 12-31-2023 End: 06-30-2024 take 1 tablet by mouth once daily aspirin 81 MG EC tablet Take 81 mg by mouth Daily 04/01/2024 Active Blood Glucose Monitoring Sup pl (True Metrix Go Glucose Meter) w/Device kit (9 sources) Start: 04-01-2024 End: 04-01-2025 Blood Glucose Monitoring Sup pl (True Metrix Go Glucose Meter) w/Device kit Indications: Type 2 diabetes mellitus without complication, without long-term current use of insulin ([facility]) 1 each Daily 1 kit 04/01/2024 04/01/2025 Active Start: 04-01-2024 End: 04-01-2025 Blood Gl[address] Monitoring [address] (True Metrix Go Glucose Meter) w/Device kit Indications: Type 2 diabetes mellitus without complication, without long-term current use of insulin ([facility]/HCC) 1 each Daily 1 kit 04/01/2024 04/01/2025 Active End: 04-01-[address] (True Metrix Go Glucose Meter) w/Device kit 1 each Daily 04/01/2024 Discontinued (Reorder) Blood-Glucose Sensor (Freestyle Jean 3 Plus Sensor) device (1 source) Start: 10-25-2024 Blood-Glucose Sensor (Freestyle Jean 3 Plus Sensor) device Active EACH .ROUTE .MEDSUPPLY October 25, 2024 12:00am As directed 24 hr buPROPion hydrochloride 150 mg extended release oral tablet (3 sources) Aminoketone Start: 09-27-2024 End: 11-26-2024 take 1 tablet by mouth every twenty-four hours Bupropion Hcl 150 mg tablet extended release 24 hr Active MG PO October 25, 2024 12:00am Complies with drug therapy cetirizine hydrochloride 10 mg oral capsule (16 sources) Histamine-1 Receptor Antagonist Start: 10-25-2024 take 1 capsule by mouth once daily as needed Cetirizine (All Day Allergy (Cetirizine)) 10 mg capsule Active 10 MG PO Daily as needed October 25, 2024 12:00am Complies with drug therapy Start: 12-31-2023 End: 12-26-2024 take 1 tablet by mouth once daily cetirizine (ZyrTEC) 10 MG tablet Indications: Environmental and seasonal allergies Take 1 tablet (10 mg) by mouth Daily 90 tablet 1 04/01/2024 09/27/2024 Discontinued (Reorder) Continuous Glucose Sensor (FreeStyle Jean 14 Day Sensor) misc (3 sources) Start: 12-31-2023 End: 03-23-2024 Continuous Glucose Sensor (FreeStyle Jean 14 Day Sensor) [facility] Indications: Type 2 diabetes mellitus with peripheral neuropathy (CMS/HCC) 1 each by Other route Daily 6 each 3 12/31/2023 03/23/2024 Active Continuous Glucose Sensor (FreeStyle Jean 3 Plus Sensor) misc (4 sources) Start: 09-27-2024 End: 10-27-2024 Continuous Glucose Sensor (FreeStyle Jean 3 Plus Sensor) mis Indications: Type 2 diabetes mellitus without complication, without long-term current use of insulin (HCC) , Type 2 diabetes mellitus with peripheral neuropathy (HCC) 1 each Every 15 Days 2 each 11 09/27/2024 10/27/2024 Active End: 09-27-2024 Continuous Glucose Sensor (F reeStyle Jean 3 Plus Sensor) misc 1 each Every 15 Days 09/27/2024 Discontinued (Reorder) dicyclomine hydrochloride 20 mg oral tablet (20 sources) Anticholinergic Start: 04-15-2023 End: 05-20-2023 take 1 tablet by mouth three times daily Dicyclomine 20 mg tablet Active 20 MG PO Three times daily 90 30 May 20, 2023 3:31pm Complies with drug therapy fluticasone propionate 0.05 mg/actuat metered dose nasal spray (20 sources) Corticosteroid Start: 10-25-2024 take 1 puff(s) by inhalation twice daily Fluticasone Propionate 110 mcg/actuation HFA aerosol inhaler Active 1 PUFF INHALATION Twice daily October 25, 2024 12:00am Complies with drug therapy Start: 10-25-2024 take 1 spray(s) nasa l route once daily Fluticasone Propionate (Flonase Allergy Relief) 50 mcg/actuation spray,suspension Active 2 SPRAY INTRANASAL Daily October 25, 2024 12:00am administer into each nostril Complies with drug therapy Start: 09-27-2024 End: 12-26-2024 take 1 puff(s) by inhalation in the morning fluticasone (Flovent) 110 MCG/ACT inhaler Indications: Asthma in adult without complication, unspecified asthma severity, unspecified whether persistent (HCC) Inhale 1 puff in the morning and 1 puff before bedtime. 36 g 1 09/27/2024 12/26/2024 Active Start: 12-31-2023 End: 12-26-2024 take 2 spray(s) nasal route once daily fluticasone (Flonase) 50 MCG/ACT nasal spray Indications: Environmental and seasonal allergies Administer 2 sprays into each nostril Daily Shake gently. Before first use, prime pump. After use, clean tip and replace cap. 48 g 1 04/01/2024 09/27/2024 Discontinued (Reorder) hydroCHLOROthiazide 12.5 mg oral capsule (20 sources) Thiazide Diuretic Start: 10-25-2024 take 2 capsules by mouth once daily Hydrochlorothiazide 12.5 mg capsule Active 25 MG PO Daily October 25, 2024 10:10am Complies with drug therapy Start: 10-13-2023 End: 12-26-2024 take 1 tablet by mouth once daily hydroCHLOROthiazide (HYDRODiuril) 25 MG tablet Indications: Hypertension, benign , Lower extremity edema Take 1 tablet (25 mg) by mouth Daily 90 tablet 1 04/01/2024 09/27/2024 Discontinued (Reorder) Start: 04-15-2023 End: 10-25-2024 take 1 capsule by mouth once daily Hydrochlorothiazide 12.5 mg capsule Discontinued 12.5 MG PO Daily April 15, 2023 1:00am October 25, 2024 10:18am take 1 tablet by alberto th in the morning hydroCHLOROthiazide (HYDRODiuril) 25 MG tablet Take 1 tablet by mouth in the morning. 0 Active 3 ml insulin glargine 100 unt/ml pen injector (3 sources) Insulin Analog Start: 10-25-2024 Insulin Glargi ne (Lantus Solostar U-100 Insulin) 100 unit/mL (3 mL) insulin pen Active 15 UNIT SUBCUT Every evening October 25, 2024 12:00am Complies with drug therapy Start: 09-27-2024 End: 10-27-2024 insulin glargine (Lantus Katharine oStar) 100 UNIT/ML pen Indications: Type 2 diabetes mellitus without complication, without long-term current use of insulin (HCC) , Type 2 diabetes mellitus with peripheral neuropathy (HCC) Inject 15 Units under the skin at bedtime 6 mL 1 09/27/2024 10/27/2024 Active ketoconazole 20 mg/ml topical cream (20 sources) Azole Antifungal Start: 10-25-2024 Ketoconazole 2 % cream Active 1 APPLIC TOPICAL Daily October 25, 2024 12:00am Complies with drug therapy ketoconazole (NI ZOral) 2 % cream Apply 1 application topically in the morning. Active meloxicam 15 mg oral tablet (20 sources) Nonsteroidal Anti-inflammatory Drug Start: 08-21-2024 End: 12-26-2024 take 1 tablet by mouth once daily Meloxicam 15 mg tablet Active 15 MG PO Daily October 25, 2024 12:00am Complies with drug therapy Start: 11-18-2023 End: 06-30-2024 take 1 tablet by mouth once daily meloxicam (Mobic) 15 MG tablet Indications: Primary osteoarthritis involving multiple joints Take 1 tablet (15 mg) by mouth Daily 90 tablet 1 04/01/2024 06/30/2024 Active metFORMIN hydrochloride 1000 mg oral tablet (20 sources) Biguanide Start: 10-25-2024 take 1 tablet by mouth twice daily Metformin 1,000 mg tablet Active 1000 MG PO Twice daily October 25, 2024 10:10am Complies with drug therapy Start: 04-15-2023 End: 12-26-2024 take 1 tablet by mouth once daily Metformin 1,000 mg tablet Discontinued 1000 MG PO Daily April 15, 2023 1:00am October 25, 2024 10:18am Semaglutide (2 sources) Start: 04-15-2023 Semaglutide (O zempic) 1 mg/dose (4 mg/3 mL) pen injector Active MG SUBCUT April 15, 2023 1:00am Complies with drug therapy Start: 04-15-2023 Semaglutide (O zempic) 1 mg/dose (4 mg/3 mL) pen injector Active MG SUBCUT April 15, 2023 1:00am semaglutide (Ozempic, 1 MG/DOSE,) 4 MG/3ML solution pen-injector (20 sources) Start: 04-01-2024 inject 1 mg by subcutaneous injection every week semaglutide (Ozempic, 1 MG/DOSE,) 4 MG/3ML solution pen-injector Indications: Type 2 diabetes mellitus with peripheral neuropathy (HCC) Inject 1 mg under the skin 1 (one) time per week 12 mL 1 04/01/2024 Active Start: 04-01-2024 End: 06-24-2024 inject 1 mg by subcutaneous injection every [...] tablet (20 sources) HMG-CoA Reductase Inhibitor Start: 04-15-2023 End: 12-26-2024 take 1 tablet by mouth in the evening atorvastatin (Lipitor) 40 MG tablet Indications: Mixed hyperlipidemia Take 1 tablet (40 mg) by mouth in the evening 90 tablet 1 04/01/2024 09/27/2024 Discontinued (Reorder) take 1 tablet by mouth in the [...] Gluc Sensor (FreeStyle Jean 14 Day Sensor) [facility] (11 sources) Start: 04-28-2023 End: 12-31-2023 Continuous Blood Gluc Sensor (FreeStyle Jean 14 Day Sensor) [facility] 04/28/2023 12/31/2023 Discontinued (Reorder) Start: 04-28-2023 Continuous Blo od Gluc Sensor (FreeStyle Jean 14 Day Sensor) [facility] 04/28/2023 Active doxycycline hyclate 100 mg oral tablet (2 sources) Tetracycline-class Drug Start: 05-20-2023 End: 10-25-2024 Doxycycline Hyclate 100 mg tablet Discontinued 200 MG PO May 20, 2023 12:00am October 25, 2024 10:08am Start: 05-20-2023 Doxycycline Hy clate Active 200 MG PO May 20, 2023 12:00am empagliflozin 25 mg oral tablet (12 sources) Sodium-Glucose Cotransporter 2 Inhibitor Start: 10-13-2023 End: 01-11-2024 take 1 tablet by mouth once daily empagliflozin (Jardiance) 25 MG Indications: Type 2 diabetes mellitus without complication, without long-term current use of insulin ([facility]/HCC) Take 1 tablet (25 mg) by mouth Daily 90 tablet 10/13/2023 11/18/2023 Discontinued (Cost of medication) Start: 04-15-2023 End: 10-25-2024 take 1 tablet by mouth once daily Empagliflozin (Jardiance) 10 mg tablet Discontinued 10 MG PO Daily April 15, 2023 1:00am October 25, 2024 10:09am glipiZIDE 10 mg oral tablet (20 sources) Sulfonylurea Start: 04-15-2023 End: 12-26-2024 take 1 tablet by mouth in the morning glipiZIDE (Glucotrol) 10 MG tablet Indications: Type 2 diabetes mellitus without complication, without long-term current use of insulin ([facility]) Take 1 tablet (10 mg) by mouth in the morning and 1 tablet (10 mg) in the evening. Take before meals. 180 tablet 1 04/01/2024 09/27/2024 Discontinued (Reorder) take 1 tablet by mouth in the [...] for mild pain 11/18/2023 Discontinued (Therapy completed) omeprazole 20 mg delayed release oral capsule (15 sources) Proton Pump Inhibitor Start: 05-28-2023 End: [...] PO Once April 15, 2023 1:00am Start: 04-15-2023 End: 10-25-2024 take 1 capsule by mouth once Omeprazole 20 mg capsule, delayed release(DR/EC) Discontinued 20 MG PO Once April 15, 2023 1:00am October 25, 2024 10:13am Start: 03-31-2023 End: 04-30-2023 take 1 capsule by mouth before mealtime omeprazole (PriLOSEC) [address] capsule Indications: Generalized abdominal pain Take 1 capsule (20 mg) by mouth in the morning. Take before meals. Do not crush or chew.. 30 capsule 1 03/31/2023 04/30/2023 Active valsartan 160 mg oral tablet (20 sources) Angiotensin 2 Receptor Sheila Start: 04-15-2023 End: 12-26-2024 take 1 tablet by mouth once daily valsartan (Diovan) 160 MG tablet Indications: Hypertension, benign Take 1 tablet (160 mg) by mouth Daily 90 tablet 1 04/01/2024 09/27/2024 Discontinued (Reorder) take 1 tablet by mouth in the mo rning valsartan (Diovan) 160 MG tablet Take 1 tablet by mouth in the morning. 0 Active Problems Active Problems Problem Classification Problem Date Documented Date Episodic/Chronic Abdominal pain (20 sources) Generalized abdominal pain; Translations: [Generalized abdominal pain] Onset: 02-25-2023 02-25-2023 Episodic Asthma (20 sources) Asthma; Translations: [Unspecified asthma, uncomplicated] Onset: 03-31-2023 03-31-2023 Chronic Calculus of urinary tract (20 sources) History of calculus of kidney; Translations: [Personal history of urinary calculi] Onset: 03-31-2023 03-31-2023 Episodic Deficiency and other anemia (20 sources) Anemia; Translations: [Anemia, unspecified] Onset: 03-31-2023 03-31-2023 Episodic Diabetes mellitus with complications (20 sources) Type 2 diabetes mellitus with diabetic polyneuropathy; Translations: [Type 2 diabetes mellitus] Onset: 04-06-2022 Chronic Diabetes mellitus without complication (20 sources) Type 2 diabetes mellitus without complications; Translations: [Diabetes mellitus] Onset: 06-26-2021 Chronic Disorders of lipid metabolism (20 sources) Hyperlipidemia; Translations: [Hyperlipidemia, unspecified] Onset: 02-25-2023 02-25-2023 Chronic Disorders usually diagnosed in infancy, childhood, or adolescence (20 sources) Adult attention deficit hyperactivity disorder ; Translations: [Other specified behavioral and emotional disorders with onset usually occurring in childhood and adolescence] Onset: 03-31-2023 03-31-2023 Chronic Esophageal disorders (15 sources) Gastroesophageal reflux disease without esophagitis; Translations: [Gastro-esophageal reflux disease without esophagitis] Onset: 12-31-2023 12-31-2023 Chronic Essential hypertension (20 sources) Benign hypertension; Translations: [Essential (primary) hypertension] Onset: 02-25-2023 02-25-2023 Chronic Genitourinary symptoms and ill-defined conditions (20 sources) Microscopic hematuria; Translations: [Other microscopic hematuria] Onset: 03-03-2023 03-03-2023 Episodic Immunizations and screening for infectious disease (20 sources) Anti-streptolysin titer abnormal; Translations: [Other specified abnormal immunological findings in serum] Onset: 08-07-2023 08-07-2023 Episodic Mood disorders (6 sources) Moderate recurrent major depression; Translations: [Major depressive disorder, recurrent, moderate] Onset: 09-27-2024 09-27-2024 Chronic Mycoses (20 sources) Onychomycosis of toenails; Translations: [Tinea unguium] Onset: 03-31-2023 03-31-2023 Episodic Nausea and vomiting (3 sources) Nausea; Translations: [Nausea] 04-15-2023 Episodic Osteoarthritis (20 sources) Degenerative joint disease involving multiple joints; Translations: [Primary generalized (osteo)arthritis] Onset: 11-18-2023 11-18-2023 Chronic Other non-traumatic joint disorders (1 source) Pain in right hip; Translations: [PAIN IN RIGHT HIP] Onset: 04-11-2022 Episodic Other non-traumatic joint disorders (20 sources) Joint pain; Translations: [Pain in unspecified joint] Onset: 07-15-2023 07-15-2023 Episodic Other nutritional; endocrine; and metabolic disorders (20 sources) Body mass index 40+ - severely obese; Translations: [Morbid (severe) obesity due to excess calories] Onset: 02-25-2023 02-25-2023 Chronic Other nutritional; endocrine; and metabolic disorders (14 sources) Obesity caused by energy imbalance; Translations: [Morbid (severe) obesity due to excess calories] Onset: 04-01-2024 04-01-2024 Chronic Other screening for suspected conditions (not mental disorders or infectious disease) (20 sources) Other specified abnormal findings of blood chemistry; Translations: [Encounter for screening for malignant neoplasm of prostate] Onset: 10-01-2021 Episodic Other skin disorders (20 sources) Seborrheic keratosis; Translations: [Other seborrheic keratosis] Onset: 03-31-2023 03-31-2023 Episodic Other upper respiratory disease (19 sources) Allergic disposition; Translations: [Other allergic rhinitis] Onset: 12-31-2023 12-31-2023 Chronic Residual codes; unclassified (20 sources) Obstructive sleep apnea syndrome; Translations: [Obstructive sleep apnea (adult) (pediatric)] Onset: 02-25-2023 02-25-2023 Chronic Residual codes; unclassified (2 sources) Sleep apnea; Translations: [Sleep apnea, unspecified] 04-15-2023 Chronic Residual codes; unclassified (20 sources) Edema of lower extremity; Translations: [Localized edema] Onset: 03-31-2023 03-31-2023 Episodic Past or Other Problems Problem Classification Problem Date Documented Da te Episodic/Chronic Deficiency and other anemia (1 source) Anemia, unspecified; Translations: [ANEMIA UNSPECIFIED] Onset: 06-29-2021 Episodic Other upper respiratory infections (20 sources) Acute maxillary sinusitis; Translations: [Acute maxillary sinusitis, unspecified] Onset: 05-12-2023 Resolved: 11-18-2023 11-18-2023 Episodic Results Test Name Value Interpretation Reference Range Facility HbA1c (Bld) [Mass fraction]o n 09-27-2024 Interpretation and review of laboratory results Abnormal [facility] e Laboratory - Hematology and Cell countson 09-27-2024 HbA1c (Bld) [Mass fraction] 14.8 % [facility] ALL CBC WITH AUTO DIFFon BASOPHILS ABSOLUTE AUTO 0 [facility] Basophils/100 WBC (Bld) 0.4 % 0.2 - 2.0 % [facility] Eosinophils/100 WBC (Bld) 2.7 % 0.9 - 7.0 % [facility] Erythrocyte distribution width (RBC) [Ratio] 13.4 % 11.0 - 15.0 % [facility] Hematocrit (Bld) [Volume fraction] 43.7 % 42.0 - 54.0 % [facility] e Hemoglobin (Bld) [Mass/Vol] 14.8 g/dL 14.0 - 18.0 g/dL [facility] IMMATURE GRANULOCYTES ABS AUTO 0.02 [facility] Immature granulocytes/100 WBC (Bld) 0.3 % 0.0 - 0.5 % [facility] LYMPHOCYTES ABSOLUTE AUTO 2.1 [facility] Lymphocytes/100 WBC (Bld) 30.1 % 20.5 - 60.0 % [facility] MCH (RBC) [Entitic mass] 29.3 pg 25.9 - 34.0 pg [facility] MCHC (RBC) [Mass/Vol] 33.9 g/dL 29.9 - 35.2 g/dL [facility] MCV (RBC) [Entitic vol] 86.5 fL 80.0 - 94.0 fL [facility] MONOCYTES ABSOLUTE AUTO 0.4 [facility] Monocytes/100 WBC (Bld) 6.2 % 1.7 - 12.0 % [facility] NEUTROPHILS ABSOLUTE AUTO 4.2 [facility] Neutrophils/100 WBC (Bld) 60.3 % 43.0 - 75.0 % [facility] Platelet mean volume (Bld) [Entitic vol] 10.2 fL 9.5 - 13.5 fL [facility] are [facility] EO # 0.2 [facility] PLT 219 [facility] RBC 5.05 [facility] WBC 7 [facility] HbA1c (Bld) [Mass fraction]o n 04-01-2024 Interpretation and review of laboratory results Abnormal [facility] - Hematology and Cell countson 04-01-2024 HbA1c (Bld) [Mass fraction] 10 % [facility] MLR HEMOGLOBIN A1Con 024 Glucose [Mass/Vol] 171 mg/dL [facility] HbA1c (Bld) [Mass fraction] 7.6 % High 4.5 - 6.2 % [facility] Comment on above: ADA RECOMMENDED LIMI T 4.0 - 6.0 ADA THERAPEUTIC TARGET < 7.0 ACTION SUGGESTED > 7.0 Interpretation and review of laboratory results Abnormal [facility] UA (CLEAN/CATCH) MICROS OPIC IF INDICATEon 04-02-2023 BILIRUBIN URINE Negative NEGATIVE [facility] BLOOD URINE Negative NEGATIVE [facility] re Clarity (U) CLEAR CLEAR [facility] Color (U) YELLOW YELLOW [facility] GLUCOSE URINE UA Negative NEGATIVE mg/dL [facility] Interpretation and review of laboratory results Abnormal [facility] Ketones Ql (U) Negative NEGATIVE mg/dL [facility] Leukocyte esterase Test strip Ql (U) Negative NEGATIVE [facility] e NITRITE URINE Negative NEGATIVE [facility] Health care pH (U) 5.0 [pH] 5.0 - 9.0 [facility] PROTEIN URINE Negative NEG/TRACE mg/dL [facility] SPECIFIC GRAVITY URINE >=1.030 Abnormal 1.005 - 1.025 [facility] URINE MICROSCOPIC INDICATED NO [facility] UROBILINOGEN URINE 0.2 EU/dL 0.2 - 1.0 EU/dL [facility] XR HIP RT [...] MADONNA CRUZ Date: 2022-04-08 08:01 Normal [facility] CBC AUTO DIFFon 04-06-2022 BASO # 0.0 103/ul Normal 0.0-0.1 [facility] Comment on above: Performed By: #### P SASC, FETIBC, FERR #### [facility] [address] [place] [address] Dr. Thais Nava Basophils/100 WBC (Bld) 0.3 % Normal 0.2-2.0 [facility] Comment on above: Performed By: #### P SASC, FETIBC, FERR #### [facility] [address] [place] [address] Dr. Thais Nava EO # 0.1 103/ul Normal 0.0-0.7 [facility] Comment on above: Performed By: #### P SASC, FETIBC, FERR #### [facility] [address] [place] [address] Dr. Thais Nava Eosinophils/100 WBC (Bld) 1.1 % Normal 0.9-7.0 [facility] Comment on above: Performed By: #### P SASC, FETIBC, FERR #### [facility] [address] [place] [address] Dr. Thais Nava Erythrocyte distribution width (RBC) [Ratio] 14.5 % Normal 11.0-15.0 [facility] Comment on above: Performed By: #### P SASC, FETIBC, FERR #### [facility] [address] [place] [address] Dr. Thais Nava Hematocrit (Bld) [Volume fraction] 44.0 % Normal 42.0-54.0 [facility] Comment on above: Performed By: #### P SASC, FETIBC, FERR #### [facility] [address] [place] [address] Dr. Thais Nava Hemoglobin (Bld) [Mass/Vol] 14.5 g/dL Normal 14.0-18.0 [facility] Comment on above: Performed By: #### P SASC, FETIBC, FERR #### [facility] [address] [place] [address] Dr. Thais Nava IG # 0.03 10e3/ul Normal 0.00-0.03 [facility] Comment on above: Performed By: #### P SASC, FETIBC, FERR #### [facility] [address] [place] [address] Dr. Thais Nava IG % 0.4 % Normal 0.0-0.5 [facility] Comment on above: Performed By: #### P SASC, FETIBC, FERR #### [facility] [address] [place] [address] Dr. Thais Nava LYMPH # 2.0 103/ul Normal 1.2-3.8 [facility] [facility] Comment on above: Performed By: #### P SASC, FETIBC, FERR #### [facility] [address] [place] [address] Dr. Thais Nava Lymphocytes/100 WBC (Bld) 26.2 % Normal 20.5-60.0 [facility] Comment on above: Performed By: #### P SASC, FETIBC, FERR #### [facility] [address] [place] [address] Dr. Thais Nava MANUAL DIFF REQ NO Normal [facility] Comment on above: Performed By: #### P SASC, FETIBC, FERR #### [facility] [address] [place] [address] Dr. Thais Nava MCH (RBC) [Entitic mass] 28.2 pg Normal 25.9-34.0 [facility] Comment on above: Performed By: #### P SASC, FETIBC, FERR #### [facility] [address] [place] [address] Dr. Thais Nava MCHC (RBC) [Mass/Vol] 33.0 g/dL Normal 29.9-35.2 [facility] Comment on above: Performed By: #### P SASC, FETIBC, FERR #### [facility] [address] [place] [address] Dr. Thais Nava MCV (RBC) [Entitic vol] 85.6 fL Normal 80.0-94.0 [facility] Comment on above: Performed By: #### P SASC, FETIBC, FERR #### [facility] [address] [place] [address] Dr. Thais Nava MONO # 0.5 103/ul Normal 0.3-0.8 [facility] Comment on above: Performed By: #### P SASC, FETIBC, FERR #### [facility] [address] [place] [address] Dr. Thais Nava Monocytes/100 WBC (Bld) 6.3 % Normal 1.7-12.0 [facility] Comment on above: Performed By: #### P SASC, FETIBC, FERR #### [facility] [address] [place] [address] Dr. Thais Nvaa NEUT # 5.0 103/ul Normal 1.4-6.5 [facility] Comment on above: Performed By: #### P SASC, FETIBC, FERR #### [facility] [address] [place] [address] Dr. Thais Nava Neutrophils/100 WBC (Bld) 65.7 % Normal 43.0-75.0 [facility] Comment on above: Performed By: #### P SASC, FETIBC, FERR #### [facility] [address] [place] [address] Dr. Thais Nava Platelet mean volume (Bld) [Entitic vol] 9.7 fL Normal 9.5-13.5 [facility] Comment on above: Performed By: #### P SASC, FETIBC, FERR #### [facility] [address] [place] [address] Dr. Thais Nava PLT 279 103/ul Normal 150-450 [facility] Comment on above: Performed By: #### P SASC, FETIBC, FERR #### [facility] [address] [place] [address] Dr. Thais Nava RBC 5.14 106/ul Normal 4.70-6.10 [facility] Comment on above: Performed By: #### P SASC, FETIBC, FERR #### [facility] [address] [address] [address] Thais Nava WBC 7.6 103/ul Normal 4.0-11.0 [facility] Comment on above: Performed By: #### P SASC, FETIBC, FERR #### [facility] [address] [place] [address] Dr. Thais Nava FERRITINon 04-06-2022 Ferritin [Mass/Vol] 709.0 ng/mL Critically high 26.0-388.0 [facility] Comment on above: Performed By: #### F ERR #### [facility] [address] [place] [address] Dr. Thais Nava GLYCOHEMOGLOBIN A1Con 2022 ADA RECOMMENDATION SEE BELOW Normal [facility] Comment on above: Result Comment: ADA RECOMMENDED LIMIT 4.0 - 6.0 ADA THERAPEUTIC TARGET < 7.0 ACTION SUGGESTED > 7.0 Performed By: #### A 1C #### [facility] [address] [place] [address] Dr. Thais Nava Glucose [Mass/Vol] 157 mg/dL Normal [facility] Comment on above: Performed By: #### A 1C #### [facility] [address] [place] [address] Dr. Thais Nava HbA1c (Bld) [Mass fraction] 7.1 % Critically high 4.5-6.2 [facility] Comment on above: Performed By: #### A 1C #### [facility] [address] [place] [address] Dr. Thais Nava PROF CHEM 8 (BAS METB)on Anion gap [Moles/Vol] 11.8 mmol/L Normal [facility] Comment on above: Performed By: #### B MP #### [facility] [address] [address] [address] Thais Nava Calcium [Mass/Vol] 9.7 mg/dL Normal 8.5-10.1 [facility] Comment on above: Performed By: #### B MP #### [facility] [address] [address] [address] Thais aNva Chloride [Moles/Vol] 99 mmol/L Normal 98-107 [facility] Comment on above: Performed By: #### B MP #### [facility] [address] [address] [address] Thais Nava CO2 [Moles/Vol] 32.4 mmol/L Critically high 21.0-32.0 [facility] Comment on above: Performed By: #### B MP #### [facility] [address] [address] [address] Thais Nava Creatinine [Mass/Vol] 1.00 mg/dL Normal 0.70-1.30 [facility] Comment on above: Performed By: #### B MP #### [facility] [address] [address] [address] Thais Nava EGFR-AF THAI >60 Normal >=60 [facility] Comment on above: Performed By: #### B MP #### [facility] [address] [address] [address] Thais Nava EGFR-NON AF THAI >60 Normal >=60 [facility] Comment on above: Performed By: #### B MP #### [facility] [address] [address] [address] Thais Nava Glucose [Mass/Vol] 177 mg/dL Critically high 74-[address] [facility] Comment on above: Performed By: #### B MP #### [facility] [address] [address] [address] Thais Nava Potassium [Moles/Vol] 4.2 mmol/L Normal 3.5-5.1 [facility] Comment on above: Performed By: #### B MP #### [facility] [address] [place] [address] Dr. Thais Nava Sodium [Moles/Vol] 139 mmol/L Normal 136-145 [facility] Comment on above: Performed By: #### B MP #### [facility] [address] [place] [address] Dr. Thais Nava Urea nitrogen [Mass/Vol] 22.0 mg/dL Critically high 7.0-18.0 [facility] Comment on above: Performed By: #### B MP #### [facility] [address] [place] [address] Dr. Thais Nava Urea nitrogen/Creatinine [Mass ratio] 22.0 mg/mg Normal [facility] Comment on above: Performed By: #### B MP #### [facility] [address] [place] [address] Dr. Thais Nava TRANSFERRINon 10-02-2021 Transferrin [Mass/Vol] 245 mg/dL Normal 177-329 [facility] Comment on above: Performed By: #### P SASC, FETIBC, FERR #### [facility] [address] [place] [address] Dr. Thais Nava CBC AUTO DIFFon 10-01-2021 BASO # 0.0 103/ul Normal 0.0-0.1 [facility] Comment on above: Performed By: #### P SASC, FETIBC, FERR #### [facility] [address] [place] [address] Dr. Thais Nava Basophils/100 WBC (Bld) 0.4 % Normal 0.2-2.0 [facility] Comment on above: Performed By: #### P SASC, FETIBC, FERR #### [facility] [address] [place] [address] Dr. Thais Nava EO # 0.1 103/ul Normal 0.0-0.7 [facility] Comment on above: Performed By: #### P SASC, FETIBC, FERR #### [facility] [address] [place] [address] Dr. Thais Nava Eosinophils/100 WBC (Bld) 1.8 % Normal 0.9-7.0 [facility] Comment on above: Performed By: #### P SASC, FETIBC, FERR #### [facility] [address] [place] [address] Dr. Thais Nava Erythrocyte distribution width (RBC) [Ratio] 14.1 % Normal 11.0-15.0 [facility] Comment on above: Performed By: #### P SASC, FETIBC, FERR #### [facility] [address] [place] [address] Dr. Thais Nava Hematocrit (Bld) [Volume fraction] 40.3 % Critically low 42.0-54.0 [facility] Comment on above: Performed By: #### P SASC, FETIBC, FERR #### [facility] [address] [place] [address] Dr. Thais Nava Hemoglobin (Bld) [Mass/Vol] 13.2 g/dL Critically low 14.0-18.0 [facility] Comment on above: Performed By: #### P SASC, FETIBC, FERR #### [facility] [address] [place] [address] Dr. Thais Nava IG # 0.03 10e3/ul Normal 0.00-0.03 [facility] Comment on above: Performed By: #### P SASC, FETIBC, FERR #### [facility] [address] [place] [address] Dr. Thais Nava IG % 0.4 % Normal 0.0-0.5 [facility] Comment on above: Performed By: #### P SASC, FETIBC, FERR #### [facility] [address] [place] [address] Dr. Thais Nava LYMPH # 1.8 103/ul Normal 1.2-3.8 [facility] Comment on above: Performed By: #### P SASC, FETIBC, FERR #### [facility] [address] [place] [address] Dr. Thais Nava Lymphocytes/100 WBC (Bld) 25.0 % Normal 20.5-60.0 [facility] Comment on above: Performed By: #### P SASC, FETIBC, FERR #### [facility] [address] [address] [address] Thais Nvaa MANUAL DIFF REQ NO Normal [facility] Comment on above: Performed By: #### P SASC, FETIBC, FERR #### [facility] [address] [place] [address] Dr. Thais Nava MCH (RBC) [Entitic mass] 28.8 pg Normal 25.9-34.0 [facility] Comment on above: Performed By: #### P SASC, FETIBC, FERR #### [facility] [address] [place] [address] Dr. Thais Nava MCHC (RBC) [Mass/Vol] 32.8 g/dL Normal 29.9-35.2 [facility] Comment on above: Performed By: #### P SASC, FETIBC, FERR #### [facility] [address] [place] [address] Dr. Thais Nava MCV (RBC) [Entitic vol] 88.0 fL Normal 80.0-94.0 [facility] Comment on above: Performed By: #### P SASC, FETIBC, FERR #### [facility] [address] [place] [address] Dr. Thais Nava MONO # 0.4 103/ul Normal 0.3-0.8 [facility] Comment on above: Performed By: #### P SASC, FETIBC, FERR #### [facility] [address] [place] [address] Dr. Thais Nava Monocytes/100 WBC (Bld) 5.6 % Normal 1.7-12.0 [facility] Comment on above: Performed By: #### P SASC, FETIBC, FERR #### [facility] [address] [place] [address] Dr. Thais Nava NEUT # 4.9 103/ul Normal 1.4-6.5 [facility] Comment on above: Performed By: #### P SASC, FETIBC, FERR #### [facility] [address] [place] [address] Dr. Thais Nava Neutrophils/100 WBC (Bld) 66.8 % Normal 43.0-75.0 [facility] Comment on above: Performed By: #### P SASC, FETIBC, FERR #### [facility] [address] [place] [address] Dr. Thais Nava Platelet mean volume (Bld) [Entitic vol] 10.8 fL Normal 9.5-13.5 [facility] Comment on above: Performed By: #### P SASC, FETIBC, FERR #### [facility] [address] [place] [address] Dr. Thais Nava PLT 205 103/ul Normal 150-450 [facility] Comment on above: Performed By: #### P SASC, FETIBC, FERR #### [facility] [address] [place] [address] Dr. Thais Nava RBC 4.58 106/ul Critically low 4.70-6.10 [facility] Comment on above: Performed By: #### P SASC, FETIBC, FERR #### [facility] [address] [place] [address] Dr. Thais Nava WBC 7.3 103/ul Normal 4.0-11.0 [facility] Comment on above: Performed By: #### P SASC, FETIBC, FERR #### [facility] [address] [place] [address] Dr. Thais Nvaa CRPon 10-01-2021 CRP [Mass/Vol] mg/L Normal <=1.0 [facility] Comment on above: Performed By: #### P SASC, FETIBC, FERR #### [facility] [address] [place] [address] Dr. Thais Nava FERRITINon 10-01-2021 Ferritin [Mass/Vol] 631.0 ng/mL Critically high 26.0-388.0 [facility] Comment on above: Performed By: #### P SASC, FETIBC, FERR #### [facility] [address] [place] [address] Dr. Thais Nava GLYCOHEMOGLOBIN A1Con 2021 ADA RECOMMENDATION SEE BELOW Normal [facility] Comment on above: Result Comment: ADA RECOMMENDED LIMIT 4.0 - 6.0 ADA THERAPEUTIC TARGET < 7.0 ACTION SUGGESTED > 7.0 Performed By: #### A 1C #### [facility] [address] [address] [address] Thais Nava Glucose [Mass/Vol] 200 mg/dL Normal [facility] Comment on above: Performed By: #### A 1C #### [facility] [address] [address] [address] Thais Nava HbA1c (Bld) [Mass fraction] 8.6 % Critically high 4.5-6.2 [facility] Comment on above: Performed By: #### A 1C #### [facility] [address] [address] [address] Thais Nava IRON AND TIBCon 10-01-2021 % SATURATION 24.1 % Normal [facility] Comment on above: Performed By: #### P SASC, FETIBC, FERR #### [facility] [address] [address] [address] Thais Nava Iron [Mass/Vol] 68.0 ug/dL Normal 65.0-175.0 [facility] Comment on above: Performed By: #### P SASC, FETIBC, FERR #### [facility] [address] [address] [address] Thais Nava TIBC DIRECT 282.0 ug/dL Normal 250.0-450.0 [facility] Comment on above: Performed By: #### P SASC, FETIBC, FERR #### [facility] [address] [address] [address] Thais Nava PROF 14(COMP METB)on 022 Albumin [Mass/Vol] 3.3 g/dL Critically low 3.4-5.0 [facility] Comment on above: Performed By: #### P SASC, FETIBC, FERR #### [facility] [address] [address] [address] Thais Nava Albumin/Globulin [Mass ratio] 0.9 {ratio} Normal [facility] Comment on above: Performed By: #### P SASC, FETIBC, FERR #### [facility] [address] [place] [address] Dr. Thais Nava ALP [Catalytic activity/Vol] 69 U/L Normal 46-116 [facility] Comment on above: Performed By: #### P SASC, FETIBC, FERR #### [facility] [address] [place] [address] Dr. Thais Nava ALT [Catalytic activity/Vol] 34 U/L Normal 16-63 [facility] Comment on above: Performed By: #### P SASC, FETIBC, FERR #### [facility] [address] [place] [address] Dr. Thais Nava Anion gap [Moles/Vol] 16.8 mmol/L Normal [facility] Comment on above: Performed By: #### P SASC, FETIBC, FERR #### [facility] [address] [place] [address] Dr. Thais Nava AST [Catalytic activity/Vol] 20 U/L Normal 15-37 [facility] Comment on above: Performed By: #### P SASC, FETIBC, FERR #### [facility] [address] [place] [address] Dr. Thais Nava Bilirubin [Mass/Vol] 0.4 mg/dL Normal 0.2-1.0 [facility] Comment on above: Performed By: #### P SASC, FETIBC, FERR #### [facility] [address] [place] [address] Dr. Thais Nava Calcium [Mass/Vol] 8.7 mg/dL Normal 8.5-10.1 [facility] Comment on above: Performed By: #### P SASC, FETIBC, FERR #### [facility] [address] [place] [address] Dr. Thais Nava Chloride [Moles/Vol] 102 mmol/L Normal 98-107 [facility] Comment on above: Performed By: #### P SASC, FETIBC, FERR #### [facility] [address] [place] [address] Dr. Thais Nava CO2 [Moles/Vol] 23.5 mmol/L Normal 21.0-32.0 [facility] Comment on above: Performed By: #### P SASC, FETIBC, FERR #### [facility] [address] [place] [address] Dr. Thais Nava Creatinine [Mass/Vol] 1.07 mg/dL Normal 0.70-1.30 [facility] Comment on above: Performed By: #### P SASC, FETIBC, FERR #### [facility] [address] [place] [address] Dr. Thais Nava EGFR-AF THAI >60 Normal >=60 [facility] Comment on above: Performed By: #### P SASC, FETIBC, FERR #### [facility] [address] [place] [address] Dr. Thais Nava EGFR-NON AF THAI >60 Normal >=60 [facility] Comment on above: Performed By: #### P SASC, FETIBC, FERR #### [facility] [address] [place] [address] Dr. Thais Nava Globulin (S) [Mass/Vol] 3.8 g/dL Normal [facility] Comment on above: Performed By: #### P SASC, FETIBC, FERR #### [facility] [address] [place] [address] Dr. Thais Nava Glucose [Mass/Vol] 317 mg/dL Critically high 74-106 [facility] Comment on above: Performed By: #### P SASC, FETIBC, FERR #### [facility] [address] [place] [address] Dr. Thais Nava Potassium [Moles/Vol] 4.3 mmol/L Normal 3.5-5.1 [facility] Comment on above: Performed By: #### P SASC, FETIBC, FERR #### [facility] [address] [place] [address] Dr. Thais Nava Protein [Mass/Vol] 7.1 g/dL Normal 6.4-8.2 [facility] Comment on above: Performed By: #### P SASC, FETIBC, FERR #### [facility] [address] [place] [address] Dr. Thais Nava Sodium [Moles/Vol] 138 mmol/L Normal 136-145 [facility] Comment on above: Performed By: #### P SASC, FETIBC, FERR #### [facility] [address] [place] [address] Dr. Thais Nava Urea nitrogen [Mass/Vol] 16.0 mg/dL Normal 7.0-18.0 [facility] Comment on above: Performed By: #### P SASC, FETIBC, FERR #### [facility] [address] [place] [address] Dr. Thais Nava Urea nitrogen/Creatinine [Mass ratio] 15.0 mg/mg Normal [facility] Comment on above: Performed By: #### P SASC, FETIBC, FERR #### [facility] [address] [place] [address] Dr. Thais Nava [facility] 31 mm/hr Critically high <=20 [facility] Comment on above: Performed By: #### S EDR #### [facility] [address] [place] [address] Dr. Thais Nava VITAMIN B12on 06-27-2021 Cobalamin (Vitamin B12) [Mass/Vol] 481 pg/mL Normal 232-1245 [facility] Comment on above: Performed By: #### V B12LC #### [facility] [address] [place] [address] Dr. Thais Nava CBC AUTO DIFFon 06-26-2021 BASO # 0.0 103/ul Normal 0.0-0.1 [facility] Comment on above: Performed By: #### C BC #### [facility] [address] [place] [address] Dr. Thais Nava Basophils/100 WBC (Bld) 0.4 % Normal 0.2-2.0 [facility] Comment on above: Performed By: #### C BC #### [facility] [address] [place] [address] Dr. Thais Nava EO # 0.1 103/ul Normal 0.0-0.7 [facility] Comment on above: Performed By: #### C BC #### [facility] [address] [place] [address] Dr. Thais Nava Eosinophils/100 WBC (Bld) 1.5 % Normal 0.9-7.0 [facility] Comment on above: Performed By: #### C BC #### [facility] [address] [place] [address] Dr. Thais Nava Erythrocyte distribution width (RBC) [Ratio] 14.7 % Normal 11.0-15.0 [facility] Comment on above: Performed By: #### C BC #### [facility] [address] [place] [address] Dr. Thais Nava Hematocrit (Bld) [Volume fraction] 44.1 % Normal 42.0-54.0 [facility] Comment on above: Performed By: #### C BC #### [facility] [address] [place] [address] Dr. Thais Nava Hemoglobin (Bld) [Mass/Vol] 14.3 g/dL Normal 14.0-18.0 [facility] Comment on above: Performed By: #### C BC #### [facility] [address] [place] [address] Dr. Thais Nava IG # 0.03 10e3/ul Normal 0.00-0.03 [facility] Comment on above: Performed By: #### C BC #### [facility] [address] [place] [address] Dr. Thais Nava IG % 0.3 % Normal 0.0-0.5 [facility] Comment on above: Performed By: #### C BC #### [facility] [address] [place] [address] Dr. Thais Nava LYMPH # 2.3 103/ul Normal 1.2-3.8 [facility] Comment on above: Performed By: #### C BC #### [facility] [address] [place] [address] Dr. Thais Nava Lymphocytes/100 WBC (Bld) 24.9 % Normal 20.5-60.0 [facility] Comment on above: Performed By: #### C BC #### [facility] [address] [place] [address] Dr. Thais Nava MANUAL DIFF REQ NO Normal [facility] Comment on above: Performed By: #### C BC #### [facility] [address] [place] [address] Dr. Thais Nava MCH (RBC) [Entitic mass] 28.7 pg Normal 25.9-34.0 [facility] Comment on above: Performed By: #### C BC #### [facility] [address] [place] [address] Dr. Thais Nava MCHC (RBC) [Mass/Vol] 32.4 g/dL Normal 29.9-35.2 [facility] Comment on above: Performed By: #### C BC #### [facility] [address] [place] [address] Dr. Thais Nava MCV (RBC) [Entitic vol] 88.4 fL Normal 80.0-94.0 [facility] Comment on above: Performed By: #### C BC #### [facility] [address] [place] [address] Dr. Thais Nava MONO # 0.6 103/ul Normal 0.3-0.8 [facility] Comment on above: Performed By: #### C BC #### [facility] [address] [place] [address] Dr. Thais Nava Monocytes/100 WBC (Bld) 6.7 % Normal 1.7-12.0 [facility] Comment on above: Performed By: #### C BC #### [facility] [address] [place] [address] Dr. Thais Nava NEUT # 6.2 103/ul Normal 1.4-6.5 [facility] Comment on above: Performed By: #### C BC #### [facility] [address] [address] [address] Thais Nava Neutrophils/100 WBC (Bld) 66.2 % Normal 43.0-75.0 [facility] Comment on above: Performed By: #### C BC #### [facility] [address] [place] [address] Dr. Thais Nava Platelet mean volume (Bld) [Entitic vol] 10.5 fL Normal 9.5-13.5 [facility] Comment on above: Performed By: #### C BC #### [facility] [address] [place] [address] Dr. Thais Nava PLT 262 103/ul Normal 150-450 [facility] Comment on above: Performed By: #### C BC #### [facility] [address] [place] [address] Dr. Thais Nava RBC 4.99 106/ul Normal 4.70-6.10 [facility] Comment on above: Performed By: #### C BC #### [facility] [address] [place] [address] Dr. Thais Nava WBC 9.4 103/ul Normal 4.0-11.0 [facility] Comment on above: Performed By: #### C BC #### [facility] [address] [place] [address] Dr. Thais Nava FERRITINon 06-26-2021 Ferritin [Mass/Vol] 665.0 ng/mL Critically high 26.0-388.0 [facility] Comment on above: Performed By: #### P SASC, FETIBC, FERR #### [facility] [address] [place] [address] Dr. Thais Nava GLYCOHEMOGLOBIN A1Con 2021 ADA RECOMMENDATION SEE BELOW Normal [facility] Comment on above: Result Comment: ADA RECOMMENDED LIMIT 4.0 - 6.0 ADA THERAPEUTIC TARGET < 7.0 ACTION SUGGESTED > 7.0 Performed By: #### P SASC, FETIBC, FERR #### [facility] [address] [place] [address] Dr. Thais Nava Glucose [Mass/Vol] 194 mg/dL Normal [facility] Comment on above: Performed By: #### P SASC, FETIBC, FERR #### [facility] [address] [address] [address] Thais Nava HbA1c (Bld) [Mass fraction] 8.4 % Critically high 4.5-6.2 [facility] Comment on above: Performed By: #### P SASC, FETIBC, FERR #### [facility] [address] [address] [address] Thais Nava IRONon 06-26-2021 Iron [Mass/Vol] 85.0 ug/dL Normal 65.0-175.0 [facility] Comment on above: Performed By: #### P SASC, FETIBC, FERR #### [facility] [address] [place] [address] Dr. Thais Nava Vital Signs Date Time Vital Sign Value Performing Clinician Facility 10-25-2024 17:39-0400 Body temperature 97.6 [degF] Vandana Archie Work Phone: [facility] 10-25-2024 17:39-0400 Body weight 134.49 kg Vandana Aicheduz Work Phone: [facility] 10-25-2024 17:39-0400 Diastolic blood pressure 80 mm[Hg] Vandana Laiheduz Work Phone: [facility] 10-25-2024 17:39-0400 Heart rate 94 /min Vandana Aichholz Work Phone: [facility] 10-25-2024 17:39-0400 Respiratory rate 20 /min Vandana Aichholz Work Phone: [facility] 10-25-2024 17:39-0400 SaO2% (BldA) [Mass fraction] 98 % Vandana Aichholz Work Phone: [facility] 10-25-2024 17:39-0400 Systolic blood pressure 140 mm[Hg] Vandana Zeeshanholz Work Phone: [facility] 09-27-2024 15:58-0400 Body mass index (BMI) [Ratio] 44.55 kg/m2 Vandana Zeeshanholz LACE MENDER Work Phone: [facility] 09-27-2024 15:58-0400 Body temperature 98.71 [degF] Vandana Aichholz LACE MENDER Work Phone: [facility] 09-27-2024 15:58-0400 Body weight 132.9 kg Vandana Aichholz LACE MENDER Work Phone: [facility] 09-27-2024 15:58-0400 Diastolic blood pressure 80 mm[Hg] Vandana Laihholz LACE MENDER Work Phone: [facility] 09-27-2024 15:58-0400 Heart rate 94 /min Vandana Laihholz LACE MENDER Work Phone: [facility] 09-27-2024 15:58-0400 SaO2% (BldA) [Mass fraction] 93 % Vandana Laihholz LACE MENDER Work Phone: [facility] 09-27-2024 15:58-0400 Systolic blood pressure 142 mm[Hg] Vandana Laihholz LACE MENDER Work Phone: [facility] 04-01-2024 15:21-0500 Body height 172.7 cm Vandana Laihholz LACE MENDER Work Phone: [facility] 04-01-2024 15:21-0500 Body mass index (BMI) [Ratio] 47.71 kg/m2 Vandana Aichholz LACE MENDER Work Phone: [facility] 04-01-2024 15:21-0500 Body temperature 98.4 [degF] Vandana Aichholz LACE MENDER Work Phone: [facility] 04-01-2024 15:21-0500 Body weight 142.34 kg Vandana Aichholz LACE MENDER Work Phone: [facility] 04-01-2024 15:21-0500 Diastolic blood pressure 80 mm[Hg] Vandana Aichholz LACE MENDER Work Phone: [facility] 04-01-2024 15:21-0500 Heart rate 66 /min Vandana Aichholz LACE MENDER Work Phone: [facility] 04-01-2024 15:21-0500 Respiratory rate 22 /min Vandana Aichholz LACE MENDER Work Phone: [facility] 04-01-2024 15:21-0500 SaO2% (BldA) [Mass fraction] 98 % Vandana Aichholz LACE MENDER Work Phone: [facility] 04-01-2024 15:21-0500 Systolic blood pressure 132 mm[Hg] Vandana Aichholz LACE MENDER Work Phone: [facility] 12-31-2023 09:23-0500 Body height 172.7 cm Vandana Aichholz LACE MENDER Work Phone: [facility] 12-31-2023 09:23-0500 Body mass index (BMI) [Ratio] 48.08 kg/m2 Vandana Aichholz LACE MENDER Work Phone: [facility] 12-31-2023 09:23-0500 Body temperature 98.8 [degF] Vandana Aichholz LACE MENDER Work Phone: [facility] 12-31-2023 09:23-0500 Body weight 143.43 kg Vandana Aichholz LACE MENDER Work Phone: [facility] 12-31-2023 09:23-0500 Diastolic blood pressure 84 mm[Hg] Vandana Aichholz LACE MENDER Work Phone: [facility] 12-31-2023 09:23-0500 Heart rate 91 /min Vandana Aichholz LACE MENDER Work Phone: [facility] 12-31-2023 09:23-0500 Respiratory rate 19 /min Vandana Aichholz LACE MENDER Work Phone: [place] [id number] 09:23-0500 SaO2% (BldA) [Mass fraction] 99 % Vandana Kavithaz LACE MENDER Work Phone: [facility] 12-31-2023 09:23-0500 Systolic blood pressure 154 mm[Hg] Vandana Zeeshanholz LACE MENDER Work Phone: [facility] 11-18-2023 15:30-0400 Body height 172.7 cm Vandana Laihholz LACE MENDER Work Phone: [facility] 11-18-2023 15:30-0400 Body mass index (BMI) [Ratio] 47.53 kg/m2 Vandana Laihholz LACE MENDER Work Phone: [facility] 11-18-2023 15:30-0400 Body temperature 99 [degF] Vandana Laihholz LACE MENDER Work Phone: [facility] 11-18-2023 15:30-0400 Body weight 141.79 kg Vandana Zeeshanholz LACE MENDER Work Phone: [facility] 11-18-2023 15:30-0400 Diastolic blood pressure 90 mm[Hg] Vandana Laihholz LACE MENDER Work Phone: [facility] 11-18-2023 15:30-0400 Heart rate 79 /min Vandana Laihholz LACE MENDER Work Phone: [facility] 11-18-2023 15:30-0400 Respiratory rate 19 /min Vandana Zeeshanholz LACE MENDER Work Phone: [facility] 11-18-2023 15:30-0400 SaO2% (BldA) [Mass fraction] 98 % Vandana Laihholz LACE MENDER Work Phone: [facility] 11-18-2023 15:30-0400 Systolic blood pressure 132 mm[Hg] Vandana Aichholz LACE MENDER Work Phone: [facility] 05-20-2023 15:25-0400 Body height 175.26 cm [facility] 05-20-2023 15:25-0400 Body mass index (BMI) [Ratio] 44.9 kg/m2 [facility] 05-20-2023 15:25-0400 Body weight 137.89 kg [facility] 04-15-2023 16:15-0500 Body height 175.26 cm [facility] 04-15-2023 16:15-0500 Body mass index (BMI) [Ratio] 44.9 kg/m2 [facility] 04-15-2023 16:15-0500 Body weight 137.89 kg [facility] 04-15-2023 16:15-0500 Diastolic blood pressure 74 mm[Hg] [facility] 04-15-2023 16:15-0500 Heart rate 104 /min [facility] 04-15-2023 16:15-0500 Systolic blood pressure 146 mm[Hg] [facility] 03-31-2023 15:18-0500 Body height 172.7 cm Vandana Almanza LACE MENDER Work Phone: [facility] 03-31-2023 15:18-0500 Body mass index (BMI) [Ratio] 46.22 kg/m2 Vandana Archie LACE MENDER Work Phone: [facility] 03-31-2023 15:18-0500 Body temperature 97.3 [degF] Vandana Archie LACE MENDER Work Phone: [facility] 03-31-2023 15:18-0500 Body weight 137.89 kg Vandana Archie LACE MENDER Work Phone: [facility] 03-31-2023 15:18-0500 Diastolic blood pressure 86 mm[Hg] Vandana Kavithaz LACE MENDER Work Phone: [facility] 03-31-2023 15:18-0500 Heart rate 100 /min Vandana Kavithaz LACE MENDER Work Phone: [facility] 03-31-2023 15:18-0500 Respiratory rate 17 /min Vandana Archie LACE MENDER Work Phone: [facility] 03-31-2023 15:18-0500 SaO2% (BldA) [Mass fraction] 96 % Vandana Almanza LACE MENDER Work Phone: [facility] 03-31-2023 15:18-0500 Systolic blood pressure 144 mm[Hg] Vandana Almanza LACE MENDER Work Phone: [facility] Healthcare Encounters Encounter Date Encounter Type Care Provider Facility Start: 10-25-2024 End: 10-25-2024 ambulatory Vandana Almanza Work Phone: [facility] Work Phone: Start: 10-25-2024 End: 10-25-2024 Patient encounter procedure Vandana Almanza LACE MENDER[facility] Work Phone: Start: 09-27-2024 End: 09-27-2024 Office outpatient visit 25 minutes Vandana Almanza NP Work Phone: [facility] Comment on above: Type 2 diabetes antonette itus without complication, without long- term current use of insulin (HCC) (Primary Dx); Sleep apnea, obstructive; Asthma in adult without complication, unspecified asthma severity, unspecified whether persistent ([facility]); Hypertension, benign ; Lower extremity edema; Morbid (severe) obesity due to excess calories ([facility]); Mixed hyperlipidemia ; Environmental and seasonal allergies; Type 2 diabetes mellitus with peripheral neuropathy (HCC); Primary osteoarthritis involving multiple joints; Moderate episode of recurrent major depressive disorder (HCC); Attention deficit disorder (ADD) in adult Start: 09-27-2024 End: 09-27-2024 ambulatory VANDANARoman ALMANZA Not Available Start: 09-27-2024 End: 09-27-2024 Bamboo flowsheet Vandana Almanza LACE MENDER Work Phone: [facility] Start: 09-27-2024 End: 09-27-2024 Bamboo flowsheet Vandana Almanza LACE MENDER Work Phone: [facility] Start: 08-16-2024 End: 08-16-2024 Telephone encounter Vandana Almanza LACE MENDER Work Phone: [facility] Start: 04-07-2024 End: 04-07-2024 Clinisync Result Encounter Vandana Hoyttia LACE MENDER Work Phone: [facility] External Department Unsolicited Start: 04-07-2024 End: 04-07-2024 Clinisync Result Encounter Vandana Archie LACE MENDER Work Phone: [facility] External Department Unsolicited Start: 04-01-2024 End: 04-01-2024 Office outpatient visit 25 minutes Vandana Archie LACE MENDER Work Phone: [facility] Comment on above: Type 2 diabetes antonette itus without complication, without long- term current use of insulin (CMS/HCC) (Primary Dx); Type 2 diabetes mellitus with diabetic polyneuropathy (CMS/HCC); Morbid (severe) obesity due to excess calories (CMS/HCC); Body mass index (BMI) 45.0-49.9, adult (CMS/HCC); Hypertension, benign (CMS/HCC); Lower extremity edema; Mixed hyperlipidemia (CMS/HCC); Environmental and seasonal allergies; Primary osteoarthritis involving multiple joints; Type 2 diabetes mellitus with peripheral neuropathy (CMS/HCC); Sleep apnea, obstructive Start: 04-01-2024 End: 04-01-2024 ambulatory VANDANA ALMANZA Not Available Start: 04-01-2024 End: 04-01-2024 Bamboo flowsheet Vandana Almanza LACE MENDER Work Phone: [facility] Start: 04-01-2024 End: 04-01-2024 Bamboo flowsheet Vandana Almanza LACE MENDER Work Phone: [facility] Start: 02-13-2024 End: 02-15-2024 Refill Vandana Almanza LACE MENDER Work Phone: [facility] Comment on above: Primary osteoarthrit is involving multiple joints (Primary Dx) Start: 12-31-2023 End: 12-31-2023 Bamboo flowsheet Vandana Almanza LACE MENDER Work Phone: [facility] Start: 12-31-2023 End: 12-31-2023 Bamboo flowsheet Vandana Almanza LACE MENDER Work Phone: [facility] Start: 12-31-2023 End: 12-31-2023 Office outpatient visit 25 minutes Vandanaroman Almanza LACE MENDER Work Phone: [facility] Comment on above: Hypertension, benign (CMS/HCC) (Primary Dx); BMI 45.0-49.9, adult (CMS/HCC); Primary osteoarthritis involving multiple joints; Gastroesophageal reflux disease without esophagitis; Type 2 diabetes mellitus without complication, without long-term current use of insulin (CMS/HCC); Type 2 diabetes mellitus with peripheral neuropathy (CMS/HCC); Environmental and seasonal allergies Start: 12-31-2023 End: 12-31-2023 ambulatory VANDANA ARCHIE Not Available Start: 12-30-2023 End: 12-30-2023 Refill Lory Garrison MA [facility] Comment on above: Mixed hyperlipidemia (CMS/HCC) Start: 11-21-2023 End: 11-23-2023 Telephone encounter Vandana Almanza LACE MENDER Work Phone: [facility] Start: 11-20-2023 End: 11-20-2023 Clinisync Result Encounter Vandana Archie LACE MENDER Work Phone: [facility] External Department Unsolicited Start: 11-20-2023 End: 11-20-2023 Clinisync Result Encounter Vandana Archie LACE MENDER Work Phone: [facility] External Department Unsolicited Start: 11-18-2023 End: 11-18-2023 Office outpatient visit 25 minutes Vandana Archie LACE MENDER Work Phone: [facility] Comment on above: Type 2 diabetes antonette itus without complication, without long- term current use of insulin (CMS/HCC) (Primary Dx); Prostate cancer screening; Primary osteoarthritis involving multiple joints; Type 2 diabetes mellitus with peripheral neuropathy (CMS/HCC); BMI 45.0-49.9, adult (CMS/HCC); Lower extremity edema Start: 11-18-2023 End: 11-18-2023 ambulatory VANDANA AICHHOLZ Not Available Start: 11-18-2023 End: 11-18-2023 Bamboo flowsheet Vandana Aichholz LACE MENDER Work Phone: [facility] Start: 11-18-2023 End: 11-18-2023 Bamboo flowsheet Vandana Aichholz LACE MENDER Work Phone: [facility] Start: 10-16-2023 End: 10-16-2023 Refill Vandana Aichholz LACE MENDER Work Phone: [facility] Comment on above: Type 2 diabetes antonette itus with peripheral neuropathy (CMS/HCC) Start: 10-11-2023 End: 10-13-2023 Refill Vandana Aichholz LACE MENDER Work Phone: [facility] Comment on above: Type 2 diabetes antonette itus without complication, without long- term current use of insulin (CMS/HCC); Lower extremity edema; Hypertension, benign (CMS/HCC) Start: 05-20-2023 End: 05-20-2023 ambulatory [facility] Work Phone: Start: 05-20-2023 End: 05-20-2023 Patient encounter procedure [facility] Work Phone: Start: 04-15-2023 End: 04-15-2023 Patient encounter procedure [facility] Work Phone: Start: 04-02-2023 Clinisync Result Encounter Vandana Aicheduz LACE MENDER Work Phone: [facility] External Department Unsolicited Start: 04-02-2023 Clinisync Result Encounter Vandana Aichholz LACE MENDER Work Phone: [facility] External Department Unsolicited Start: 03-31-2023 End: 03-31-2023 Office outpatient visit 25 minutes Vandana Laiheduz LACE MENDER Work Phone: [facility] Comment on above: Type 2 diabetes antonette itus with peripheral neuropathy (CMS/HCC) (Primary Dx); BMI 45.0-49.9, adult (CMS/HCC); Microscopic hematuria; Generalized abdominal pain Start: 03-31-2023 Bamboo flowsheet Vandana Laikaranquinn LACE MENDER Work Phone: [facility] Start: 03-31-2023 Bamboo flowsheet Vandana Byersedufranky LACE MENDER Work Phone: [facility] Start: 04-06-2022 End: 04-07-2022 ambulatory UI DESIGNER VANDANA ALMANZA Facility:[facility] Start: 10-01-2021 End: 10-02-2021 ambulatory UI DESIGNER VANDANA LAIKaranEDUFranky Facility:[facility] Start: 06-26-2021 End: 06-27-2021 ambulatory UI DESIGNER VANDANA LAIKaranEDUFranky Facility:[facility] Procedures Date Procedure Procedure Detail Performing Clinician Start: 09-27-2024 Hemoglobin glycosyla gill a1c Vandana Archie LACE MENDER Work Phone: Start: 04-07-2024 ALL CBC WITH AUTO DIFF Vandana Laikaranquinn LACE MENDER Work Phone: Start: 04-01-2024 Hemoglobin glycosyla gill a1c Vandana Laikaraneduz LACE MENDER Work Phone: Start: 11-20-2023 MLR HEMOGLOBIN A1C Vandana Kavithaz LACE MENDER Work Phone: Start: 04-02-2023 TB UA (CLEAN/CATCH) MICROSCOPIC IF INDICATE Vandana Archie LACE MENDER Work Phone: Start: 10-01-2021 PSA screening KHURRAM ALMANZA Comment on above: Performed By: #### P SASC, FETIBC, FERR #### [facility] [address] [place] [address] Dr. Thais Nava Plan of Treatment Date Care Activity Detail Author Start: 09-08-2026 Screening for malign ant neoplasm of colon [facility] Start: 08-16-2026 Glaucoma screening Diabetes: R etinopathy Screening [facility] Start: 04-07-2025 Urine screening for protein Diabetes: Urine Protein Screening [facility] Start: 12-28-2024 Hemoglobin A1c measurement Diabetes: Hemoglobin A1C [facility] Start: 10-25-2024 End: 10-25-2024 Patient encounter procedure 10/25/2024 5:30 PM EDT Office Visit [facility] [address] [place] [address] Vandana Almanza, KYLAH [address] [place] [phone] [facility] Start: 09-27-2024 End: 09-27-2024 Patient encounter procedure 09/27/2024 3:40 PM EDT Office Visit [facility] [address] [place] [address] Vandana Almanza, KYLAH [address] [place] [phone] Sleep apnea, obstructive (Primary Dx); Asthma in adult without complication, unspecified asthma severity, unspecified whether persistent (HCC); Hypertension, benign ; Lower extremity edema; Type 2 diabetes mellitus without complication, without long-term current use of insulin (HCC); Morbid (severe) obesity due to excess calories ([facility]-HCC); Mixed hyperlipidemia [facility] Comment on above: Sleep apnea, obstruc tive (Primary Dx); Asthma in adult without complication, unspecified asthma severity, unspecified whether persistent (HCC); Hypertension, benign ; Lower extremity edema; Type 2 diabetes mellitus without complication, without long-term current use of insulin (HCC); Morbid (severe) obesity due to excess calories ([facility]-HCC); Mixed hyperlipidemia Start: 09-27-2024 End: 09-27-2025 CBC W Auto Differential panel - Blood CBC and differential Lab Routine Hypertension, benign Type 2 diabetes mellitus without complication, without long-term current use of insulin (HCC) Expected: 09/27/2024 (Approximate), Expires: 09/27/2025 [facility] Work Phone: Comment on above: Expected: 09/27/2024 (Approximate), Expires: 09/27/2025 Start: 09-27-2024 End: 09-27-2025 Comprehensive metabolic 2000 panel - Serum or Plasma Comprehensive metabolic panel Lab Routine Hypertension, benign Type 2 diabetes mellitus without complication, without long-term current use of insulin (HCC) Expected: 09/27/2024 (Approximate), Expires: 09/27/2025 [facility] Comment on above: Expected: 09/27/2024 (Approximate), Expires: 09/27/2025 Start: 08-06-2024 Glaucoma screening Diabetes: R etinopathy Screening [facility] Start: 07-01-2024 End: 07-01-2024 Patient encounter procedure 07/01/2024 3:00 PM EDT Office Visit [facility] [address] [place] [address] Vandana Almanza, LACE MENDER [address] [place] [phone] [facility] Start: 06-29-2024 Hemoglobin A1c measurement Diabetes: Hemoglobin A1C [facility] Start: 04-01-2024 End: 04-01-2024 Patient encounter procedure 04/01/2024 3:00 PM EST Office Visit [facility] [address] [place] [phone] Vandana Almanza, LACE MENDER [address] [place] [phone] [facility] Start: 04-01-2024 End: 04-01-2025 CBC W Auto Differential panel - Blood CBC and differential Lab Routine Type 2 diabetes mellitus without complication, without long-term current use of insulin (CMS/HCC) Expected: 04/01/2024 (Approximate), Expires: 04/01/2025 [facility] Work Phone: Comment on above: Expected: 04/01/2024 (Approximate), Expires: 04/01/2025 Start: 04-01-2024 End: 04-01-2025 Comprehensive metabolic 2000 panel - Serum or Plasma Comprehensive metabolic panel Lab Routine Hypertension, benign (CMS/HCC) Type 2 diabetes mellitus without complication, without long-term current use of insulin (CMS/HCC) Mixed hyperlipidemia (CMS/HCC) Expected: 04/01/2024 (Approximate), Expires: 04/01/2025 [facility] Comment on above: Expected: 04/01/2024 (Approximate), Expires: 04/01/2025 Start: 04-01-2024 End: 04-01-2025 Lipid 1996 panel - Serum or Plasma Lipid panel Lab Routine Type 2 diabetes mellitus without complication, without long-term current use of insulin (CMS/HCC) Mixed hyperlipidemia (CMS/HCC) Expected: 04/01/2024 (Approximate), Expires: 04/01/2025 [facility] Comment on above: Expected: 04/01/2024 (Approximate), Expires: 04/01/2025 Start: 04-01-2024 End: 04-01-2025 Microalbumin/Creatinine panel in random Urine Microalbumin / creatinine, urine ratio Lab Routine Hypertension, benign (CMS/HCC) Type 2 diabetes mellitus without complication, without long-term current use of insulin (CMS/HCC) Expected: 04/01/2024 (Approximate), Expires: 04/01/2025 [facility] Comment on above: Expected: 04/01/2024 (Approximate), Expires: 04/01/2025 Start: 04-01-2024 End: 04-01-2025 Urinalysis complete panel - Urine Urinalysis with reflex microscopic (clean catch) Lab Routine Hypertension, benign (CMS/HCC) Type 2 diabetes mellitus without complication, without long-term current use of insulin (CMS/HCC) Expected: 04/01/2024 (Approximate), Expires: 04/01/2025 [facility] Comment on above: Expected: 04/01/2024 (Approximate), Expires: 04/01/2025 Start: 03-01-2024 Urine screening for protein Diabetes: Urine Protein Screening [facility] Start: 02-20-2024 Hemoglobin A1c measurement Diabetes: Hemoglobin A1C [facility] Start: 12-31-2023 End: 12-31-2023 Patient encounter procedure 12/31/2023 9:20 AM EST Office [facility] [address] [place] [address] Vandana Almanza, KYLAH [address] [place] [phone] [facility] Start: 11-18-2023 End: 11-18-2023 Patient encounter procedure [facility] Comment on above: Type 2 diabetes antonette itus without complication, without long- term current use of insulin ([facility]) (Primary Dx); Prostate cancer screening Start: 11-18-2023 End: 11-17-2024 Hemoglobin A1c/Hemoglobin.total in Blood Hemoglobin A1c Lab Routine Type 2 diabetes mellitus without complication, without long-term current use of insulin ([facility]) Expected: 11/18/2023 (Approximate), Expires: 11/17/2024 [facility] Work Phone: Comment on above: Expected: 11/18/2023 (Approximate), Expires: 11/17/2024 Start: 11-18-2023 End: 11-17-2024 Prostate specific Ag [Mass/volume] in Serum or Plasma PSA Lab Routine Prostate cancer screening Expected: 11/18/2023 (Approximate), Expires: 11/17/2024 [facility] Comment on above: Expected: 11/18/2023 (Approximate), Expires: 11/17/2024 Start: 11-05-2023 Hemoglobin A1c measurement Diabetes: Hemoglobin A1C [facility] Start: 10-16-2023 End: 10-16-2023 Patient encounter procedure 10/16/2023 3:40 PM EDT Office Visit [facility] [address] [place] [address] Vandana Almanza NP [address] [place] [id number] [facility] Start: 08-30-2023 Screening for malign ant neoplasm of colon [facility] Start: 05-31-2023 Hemoglobin A1c measurement Diabetes: Hemoglobin A1C [facility] Start: 05-12-2023 End: 05-12-2023 Patient encounter procedure 05/12/2023 6:00 PM EDT Office Visit [facility] [address] [place] [id number] Vandana Almanza, LACE MENDER [address] [place] [phone] [facility] Start: 03-31-2023 End: 03-31-2023 Patient encounter procedure 03/31/2023 3:20 PM EST Office Visit [facility] [address] [place] [phone] Vandana Almanza, LACE MENDER [address] [place] [address] Arrived [facility] Comment on above: Arrived Start: 03-09-2023 Hemoglobin A1c measurement Diabetes: Hemoglobin A1C [facility] Start: 10-18-2022 Influenza vaccination Influenza Vacc ine (#1) [facility] Start: 02-03-2022 Urine screening for protein Diabetes: Urine Protein Screening [facility] Start: 1965 Screening for malign ant neoplasm of colon [facility] Immunizations Immunization Date Immunization Notes Care Provider Adan comer 06-13-2020 pneumococcal polysaccharide vaccine, 23 valent Vandana Aichholz LACE MENDER Work Phone: [facility] 11-24-2019 Influenza, injectabl e, Madin Bridgett Canine Kidney, preservative free, quadrivalent Vandana Aichholz LACE MENDER Work Phone: [facility] 11-24-2019 influenza virus vacc ine, unspecified formulation Vandana Aichholz LACE MENDER Work Phone: [facility] 11-12-2019 influenza, seasonal, injectable Vandana Aichholz LACE MENDER Work Phone: [facility] 02-04-2019 Influenza, injectabl e, Madin Bridgett Canine Kidney, preservative free, quadrivalent Vandana Aichholz LACE MENDER Work Phone: [facility] Healthcare Payers Date Payer Category Payer Private Health Insurance [employer] [id number] 2022 Unknown [employer] [id number] 2022-Present [phone] [address] [address] [place] [address] [id number] 1965 Unknown [id number] 1963 Unknown [id number] 1963 Unknown [id number] 1963 Unknown [id number] 1963 Unknown [id number] 1963 Unknown [id number] 1963 Unknown [id number] 1959 Unknown [id number] 1959 Unknown [id number] Unknown [employer] [id number] Social History Date Type Detail Facility Start: 02-21-2023 End: 04-15-2023 Tobacco smoking status MOIS Ex-smoker [facility] End: 02-18-1996 History of [...] on file [facility] Start: 03-31-2023 End: 09-27-2024 Alcohol intake Ex-drinker (finding) [facility] Start: 03-31-2023 Alcohol Comment caffine and alcohol: occasionally [facility] Start: 1965 Sex Assigned At [facility] How often to you hav e a drink containing alcohol? Monthly or less [facility] How often do you hav e 6 or more drinks on 1 occasion? Less than monthly [facility] How hard is it for y ou to pay for the very basics like food, housing, medical care, and heating Somewhat hard [facility] (I/We) worried wheth er (my/our) food would run out before (I/we) got money to buy more. Sometimes true [facility] Sex Male (finding) [facility] Medical Equipment Procedure Code Equipment Code Equipment Origin al Text Equipment Identifier Dates 1 each by Other route Daily Use as instructed [id number] Start: 04-01-2024 End: 07-10-2024 1 each Daily [id number] Start: 04-01-2024 End: 07-10-2024 Once a day. Use as instructed [id number] Start: 09-27-2024 End: 09-27-2025 Pen Needle, Diab etic (Hanny 2nd Gen Pen Needle) 32 gauge x / needle Start: 10-25-2024 Clinical Notes 03-31-2023 to 09-27-2024 Vandana Almanza NP - 09/27/2024 5:04 PM Jessica Almanza NP - 09/27/2024 5:03 PM EDTHPUMA LEWIS - 09/27/2024 3:40 PM EDMaritza Almanza NP - 09/27/2024 3:40 PM EDTPatient Instructions Note Date & Type Note Facility 09-27-2024 History of Presen t illness Narrative Associated Problem(s): Attention deficit disorder (ADD) in adult Used to take wellbutrin May also help Associated Problem(s): Moderate episode of recurrent major depressive disorder (HCC) No SI/HI +endorses lack of interest, used to take meds in the past Will start wellbutrin will use XL d/t not compliant with multiple times a day doses Take medication only as directed. This medication will take approximately 4-6 weeks to become effective. If any suicidal thoughts, thoughts of hurting others, or hallucinations contact the office or proceed to the Emergency Room for mental health evaluation. Medication may cause dry mouth, dizziness, and in some cases worsening in depression symptoms. Please contact the office if these occur. Pt work has gone to 4-10hr days plus 1-8hr day about 2m ago. Pt has had issues with taking medications and remembering to take them. Pt has been EMS to the [facility] tunnel vision, paleness, possibly blacked out but not sure if he fell/ he did go unresponsive for a bit. This happened 2 weeks ago. Pt states he has been more fatigue and has had some short term memory loss. Pt would like to discuss FMLA Pt has used all his ETO Pt has not had ozempic inj for about a month now- did not intentionally stopped it it just happened Images from the original note were not included. Carlos Bishop is a 58 y.o. male presents with chief complaint of Diabetes HPI: Pt work has gone to 4-10hr days plus 1-8hr day about 2m ago. Pt has had issues with taking medications and remembering to take them. Pt has been EMS to the [facility] tunnel vision, paleness, possibly blacked out but not sure if he fell/ he did go unresponsive for a bit. This happened 2 weeks ago. Followed an episode of diarrhea for a day. Did not go to ER , went to health center: water, [place] pop cicle, then went home for the rest of the day. Pt states he has been more fatigue and has had some short term memory loss. Pt would like to discuss FMLA Pt has used all his ETO Pt has not had ozempic inj for about a month now- did not intentionally stopped it it just happened Would like to file [facility] Diabetes He presents for his follow-up diabetic visit. He has type 2 diabetes mellitus. There are no hypoglycemic associated symptoms. Pertinent negatives for hypoglycemia include no dizziness, nervousness/anxiousness, seizures or tremors. Associated symptoms include polydipsia, polyphagia and polyuria. Pertinent negatives for diabetes include no foot paresthesias. There are no hypoglycemic complications. Symptoms are worsening. Pertinent negatives for diabetic complications include no heart disease. Risk factors for coronary artery disease include diabetes mellitus, dyslipidemia, hypertension, male sex, obesity and sedentary lifestyle. Current diabetic treatment includes oral agent (dual therapy). An CHRIS inhibitor/angiotensin II receptor sheila is being taken. Eye exam is not current. Depression Visit Type: initial Onset of symptoms: more than 1 year ago Progression since onset: gradually worsening Patient presents with the following symptoms: anhedonia and depressed mood. Patient is not experiencing: decreased concentration, nervousness/anxiety, suicidal ideas, suicidal planning and thoughts of . Frequency of symptoms: most days Severity: moderate Aggravated by: work stress Patient has a history of: depression SUBJECTIVE: MEDICATIONS: Current Outpatient Medications Medication Instructions albuterol HFA 90 mcg/act inhaler 1 puff, Every 6 hours PRN aspirin 81 mg, Daily atorvastatin (LIPITOR) 40 mg, Oral, Every evening Blood Glucose Monitoring Suppl (True Metrix Go Glucose Meter) w/Device kit 1 each, Does not apply, Daily cetirizine (ZYRTEC) 10 mg, Oral, Daily dicyclomine (BENTYL) 20 mg, 3 times daily fluticasone (Flonase) 50 MCG/ACT nasal spray 2 sprays, Each Nostril, Daily, Shake gently. Before first use, prime pump. After use, clean tip and replace cap. fluticasone (Flovent) 110 MCG/ACT inhaler 1 puff, Inhalation, 2 times daily RT glipiZIDE (GLUCOTROL) 10 mg, Oral, 2 times daily before meals hydroCHLOROthiazide (HYDRODIURIL) 25 mg, Oral, Daily ketoconazole (NIZOral) 2 % cream 1 application , Daily meloxicam (MOBIC) 15 mg, Oral, Daily, Take 15 mg by mouth Daily metFORMIN (GLUCOPHAGE) 1,000 mg, Oral, 2 times daily with meals Ozempic [...] wheezing. Cardiovascular: Negative for leg swelling. Gastrointestinal: Negative for abdominal distention, blood in stool, constipation and diarrhea. Genitourinary: Negative for decreased urine volume, difficulty urinating, dysuria and hematuria. Skin: Negative for color change. Neurological: Negative for dizziness, tremors and seizures. Psychiatric/Behavioral: Positive for depression. Negative for agitation, decreased concentration, hallucinations, self-injury and suicidal ideas. The patient is not nervous/anxious. Depression Hematological: Negative for adenopathy. Does not bruise/bleed easily. Endocrine: Positive for polydipsia, polyphagia and polyuria. Negative for cold intolerance and heat intolerance. Allergic/Immunologic: Negative for environmental allergies and food allergies. PAST MEDICAL HISTORY Past Medical History: Diagnosis Date Anemia Asthma in adult without complication, unspecified asthma severity, unspecified whether persistent (HCC) Attention deficit disorder (ADD) in adult Diagnosed 13 years ago. Pt was on ritalin and wellbutrin. Pt states he still has symptoms, but since he switched jobs he has no issue. No new issues since last visit. Elevated ferritin History of kidney stones HLD (hyperlipidemia) 02/25/2023 NO issues at this time. Pt takes meds regularly. Previous Hx as below No issues at this time. Takes his meds daily. Previous Hx as below No issues today. Previous Hx as below No issues with his lipitor. Takes his meds daily. Hypertension, benign Lazy eye, left Still seeing Optho. Previous Hx as below Pt states optho is helping him. No issues. Previous hx Pt had corrective surgery which did not completely fix the issue. It is better. Pt sees Optho. No changes since last visit. Lower extremity edema Morbid obesity with body mass index (BMI) of 40.0 to 49.9 ([facility]) Onychomycosis of toenail L great toe SK (seborrheic keratosis) Pt states he has a spot on his L uatsdin that comes up. Its raised and itchy. Pt states it rubs on his glasses. He states he picks at it. Derm is wanting a biopsy. He is schedule for this. Sleep apnea, obstructive Type 2 diabetes mellitus with peripheral neuropathy ([facility]) Past Surgical History: Procedure Laterality Date ANKLE SURGERY [facility]/Dr. Saenz Right flexor hallucis longus longus [...] other family member. OBJECTIVE: Visit Vitals BP 142/80 (BP Location: Left arm, Patient Position: Sitting, BP Cuff Size: Large adult) Pulse 94 Temp 98.7 F (Temporal) Wt 293 lb SpO2 93% BMI 44.55 kg/m Smoking Status Former BSA 2.53 m Physical Exam Vitals and nursing note [...] heard. Pulmonary: Effort: Pulmonary effort is normal. Breath sounds: Normal breath sounds. No wheezing or rhonchi. Abdominal: General: Bowel sounds are normal. Palpations: Abdomen is soft. Musculoskeletal: Cervical back: Neck supple. Right lower leg: Edema present. Left lower leg: Edema present. Skin: General: Skin is warm and dry. Capillary Refill: Capillary refill takes 2 to 3 seconds. Neurological: General: No focal deficit present. Mental Status: He is alert. Psychiatric: Mood and Affect: Mood normal. Behavior: Behavior normal. Thought Content: Thought content normal. Judgment: Judgment normal. ASSESSMENT AND PLAN: No follow-ups on file. Problem List Items Addressed This Visit Sleep apnea, obstructive - Primary You have a diagnosis of obstructive sleep apnea. It is recommended that you wear your PAP device any time while in bed sleeping. Not using the PAP device can increase your risk of elevated/uncontrolled high blood pressure, atrial fibrillation, heart attack, stroke, or sudden . Compliance with PAP: sporadic, uses about 7 days How many hours of use per night: 4-5 hours Do you feel more refreshed in the morning: not really Company that supplies your machine and tubing/filters etc: [employer], [employer] Doctor that manages your BARRERA: Vandana Hypertension, benign Please check blood pressure daily and record DASH diet Limit caffeine Take medication as directed Contact office if chest pain, pressure, dizziness, shortness of breath, swelling legs Recommend slow position changes Current meds: hydrochlorothiazide, valsartan Relevant Medications hydroCHLOROthiazide (HYDRODiuril) 25 MG tablet valsartan (Diovan) 160 MG tablet Other Relevant Orders CBC and differential Comprehensive metabolic panel HLD (hyperlipidemia) Statin therapy Check labs yearly and prn dose changes Relevant Medications atorvastatin (Lipitor) 40 MG tablet Asthma in adult without complication, unspecified asthma severity, unspecified whether persistent (HCC) Current meds: flovent, albuterol, Relevant Medications fluticasone (Flovent) 110 MCG/ACT inhaler Lower extremity edema Elevate legs as much as possible, compression stockings limit sodium , diuretic therapy as well Relevant Medications hydroCHLOROthiazide (HYDRODiuril) 25 MG tablet Attention deficit disorder (ADD) in adult Used to take wellbutrin May also help Relevant Medications buPROPion XL (Wellbutrin XL) 150 MG 24 hr tablet Type 2 diabetes mellitus without complication, without long-term current use of insulin (HCC) Check blood sugars daily, notify if <70 [...] meds: asa, statin, arb, metformin, ozempic A1c 14.8% 09/27/24, 10% 04/01/24, often times forgets evening dose of meds, will change to take at time when he gets home At this point we will start insulin at 15 units evening time Urged pt to start taking meds as directed Adivsed of consequences : stroke, [place], Fu in 4-6 weeks Relevant Medications glipiZIDE (Glucotrol) 10 MG tablet metFORMIN (Glucophage) 1000 MG tablet Continuous Glucose Sensor (FreeStyle Jean 3 Plus Sensor) misc insulin glargine (Lantus SoloStar) 100 UNIT/ML pen pen needle 32G x 5 mm misc Other Relevant Orders POCT glycosylated hemoglobin (Hb A1C) docked device (Completed) CBC and differential Comprehensive metabolic panel Primary osteoarthritis involving multiple joints Relevant Medications meloxicam (Mobic) 15 MG tablet Environmental and seasonal allergies Relevant Medications cetirizine (ZyrTEC) 10 MG tablet fluticasone (Flonase) 50 MCG/ACT nasal spray Morbid (severe) obesity due to excess calories ([facility]) Discussed with patient their BMI (actual, verses recommended). We have also discussed lifestyle modifications: attempts to perform physical activity as chronic conditions allow, also to monitor dietary intake: increasing protein/fruits/veggies and lowering carb intake (unless contraindicated). Limit sodas, juices, and sugary drinks. Also discussed oral medications that can be utilized for weight loss, as well as surgical options for weight loss. Moderate episode of recurrent major depressive disorder (HCC) No SI/HI +endorses lack of interest, used to take meds in the past Will start wellbutrin will use XL d/t not compliant with multiple times a day doses Take medication only as directed. This medication will take approximately 4-6 weeks to become effective. If any suicidal thoughts, thoughts of hurting others, or hallucinations contact the office or proceed to the Emergency Room for mental health evaluation. Medication may cause dry mouth, dizziness, and in some cases worsening in depression symptoms. Please contact the office if these occur. Relevant Medications buPROPion XL (Wellbutrin XL) 150 MG 24 hr tablet Other Visit Diagnoses Type 2 diabetes mellitus with peripheral neuropathy (HCC) Relevant Medications Continuous Glucose Sensor (FreeStyle Jean 3 Plus Sensor) misc insulin glargine (Lantus SoloStar) 100 UNIT/ML pen pen needle 32G x 5 mm misc Associated Problem(s): HLD (hyperlipidemia) Statin therapy Check labs yearly and prn dose changes Associated Problem(s): Morbid (severe) obesity due to excess calories ([facility]) Discussed with patient their BMI (actual, verses [...] complication, without long-term current use of insulin ([facility]) Check blood sugars daily, notify if <70 [...] meds: asa, statin, arb, metformin, ozempic A1c 14.8% 09/27/24, 10% 04/01/24, often times forgets evening dose of meds, will change to take at time when he gets home At this point we will start insulin at 15 units evening time Urged pt to start taking meds as directed Adivsed of consequences : stroke, [place], Fu in 4-6 weeks Associated Problem(s): Lower extremity edema Elevate legs as much as possible, compression stockings limit sodium , diuretic therapy as well Associated Problem(s): Gastroesophageal reflux disease without esophagitis Does not take meds for this anymore Associated Problem(s): Hypertension, benign Please check blood pressure daily and record DASH diet Limit caffeine Take medication as directed Contact office if chest pain, pressure, dizziness, shortness of breath, swelling legs Recommend slow position changes Current meds: hydrochlorothiazide, valsartan Associated Problem(s): Asthma in adult without complication, unspecified asthma severity, unspecified whether persistent (HCC) Current meds: flovent, albuterol, Associated Problem(s): Sleep apnea, obstructive You have a diagnosis of obstructive sleep apnea. It is recommended that you wear your PAP device any time while in bed sleeping. Not using the PAP device can increase your risk of elevated/uncontrolled high blood pressure, atrial fibrillation, heart attack, stroke, or sudden . Compliance with PAP: sporadic, uses about 7 days How many hours of use per night: 4-5 hours Do you feel more refreshed in the morning: not really Company that supplies your machine and tubing/filters etc: [employer], Intern [employer] Doctor that manages your BARRERA: Vandana documented in this encounter [facility] 09-27-2024 Instructions Vandana Almanza NP - 09/27/2024 3:40 PM EDT Labs Insulin: 15 units daily Buproprion (wellbutrin ): Take medication only as directed. This medication will take approximately 4-6 weeks to become effective. If any suicidal thoughts, thoughts of hurting others, or hallucinations contact the office or proceed to the Emergency Room for mental health evaluation. Medication may cause dry mouth, dizziness, and in some cases worsening in depression symptoms. Please contact the office if these occur. documented in this encounter [facility] 08-16-2024 Miscellaneous Notes Formattin g of this note might be different from the original. Needs an appt , missed 07/11 appt [place] documented in this encounter [facility] 08-16-2024 Telephone encount er Note Needs an appt , missed 07/11 appt [place] [facility] 04-01-2024 History of Presen t illness Narrative [...] that supplies your machine and tubing/filters etc: [employer] Doctor that manages your BARRERA: Vandana Left bottom-heel started hurting about a week ago pt does have some troubles walking on it. Pain ranges from a 4-8 Images from the original note were not included. Carlos Bishop is a 58 y.o. male presents with [...] being taken. He does not see a rehabilitation counsellor.Eye exam is current. Hypertension This is a [...] is no history of kidney disease or CAD/OH. SUBJECTIVE: MEDICATIONS: Current Outpatient Medications Medication Instructions [...] complication, unspecified asthma severity, unspecified whether persistent (CMS/HCC) Attention deficit disorder (ADD) in adult Diagnosed 13 years ago. Pt was on ritalin and wellbutrin. Pt states he still has symptoms, but since he switched jobs he has no issue. No new issues since last visit. Elevated ferritin History of kidney stones HLD (hyperlipidemia) ([facility]) 02/25/2023 NO issues at this time. Pt [...] mass index (BMI) of 40.0 to 49.9 ([facility]) Onychomycosis of toenail L great toe SK (seborrheic keratosis) Pt states he has a spot on his L uatsdin that comes up. Its raised and itchy. Pt states it rubs on his glasses. He states he picks at it. Derm is wanting a biopsy. He is schedule for this. Sleep apnea, obstructive Type 2 diabetes mellitus with peripheral neuropathy ([facility]) Past Surgical History: Procedure Laterality Date ANKLE SURGERY [facility]/Dr. Saenz Right flexor hallucis longus longus [...] your machine and tubing/filters etc: [employer], [employer] Doctor that manages your BARRERA: Vandana Type 2 diabetes mellitus with diabetic polyneuropathy ([facility]) No current meds Recommend good glycemic control Freq foot inspections Relevant Medications semaglutide (Ozempic, 1 MG/DOSE,) 4 MG/3ML solution pen-injector Hypertension, benign ([facility]) - Primary Please check blood pressure daily [...] ratio Body mass index (BMI) 45.0-49.9, adult ([facility]) HLD (hyperlipidemia) ([facility]) Statin therapy Check labs yearly and prn dose changes Relevant Medications atorvastatin (Lipitor) 40 MG tablet Other Relevant Orders Comprehensive metabolic panel Lipid panel Lower extremity edema Elevate legs as much as possible, compression stockings limit sodium , diuretic therapy as well Relevant Medications hydroCHLOROthiazide (HYDRODiuril) 25 MG tablet Type 2 diabetes mellitus without complication, without long-term current use of insulin ([facility]) Check blood sugars daily, notify if <70 [...] Morbid (severe) obesity due to excess calories ([facility]) You have a diagnosis of obstructive sleep [...] Type 2 diabetes mellitus with peripheral neuropathy ([facility]) Relevant Medications semaglutide (Ozempic, 1 MG/DOSE,) 4 MG/3ML solution pen-injector Associated Problem(s): HLD (hyperlipidemia) ([facility]) Statin therapy Check labs yearly and prn dose changes Associated Problem(s): Type 2 diabetes mellitus without complication, without long-term current use of insulin ([facility]) Check blood sugars daily, notify if <70 [...] Morbid (severe) obesity due to excess calories ([facility]) You have a diagnosis of obstructive sleep [...] Freq foot inspections documented in this encounter [facility] 04-01-2024 Instructions Vandana Almanza NP - 04/01/2024 3:00 PM EST Take your diabetic meds: am when you get up and the evening doses can be taken when you get home If you decide to change your mind rehabilitation counsellor documented in this encounter [facility] 12-31-2023 History of Presen t illness Narrative Associated Problem(s): Environmental and seasonal allergies Stop benadryl, trial [...] from the original note were not included. Carlos Bishop is a 58 y.o. male presents with [...] been helping symptoms. No NVD Arthritis pain: mobashtyn has been helping his arthritis pain HTN: [...] complication, unspecified asthma severity, unspecified whether persistent ([facility]) Attention deficit disorder (ADD) in adult Diagnosed 13 years ago. Pt was on ritalin and wellbutrin. Pt states he still has symptoms, but since he switched jobs he has no issue. No new issues since last visit. Elevated ferritin History of kidney stones HLD (hyperlipidemia) ([facility]) 02/25/2023 NO issues at this time. Pt [...] he has a spot on his L uatsdin that comes up. Its raised and itchy. Pt states it rubs on his glasses. He states he picks at it. Derm is wanting a biopsy. He is schedule for this. Sleep apnea, obstructive Type 2 diabetes mellitus with peripheral neuropathy (CMS/HCC) Past Surgical History: Procedure Laterality Date ANKLE SURGERY [facility]/Dr. Saenz Right flexor hallucis longus longus [...] Sensor (FreeStyle Jean 14 Day Sensor) misc Hypertension, benign (CMS/HCC) - Primary Please check [...] complication, without long-term current use of insulin ([facility]) Check blood sugars daily, notify if <70 [...] remains elevated Associated Problem(s): BMI 45.0-49.9, adult ([facility]) Discussed with patient their BMI (actual, verses [...] complication, without long-term current use of insulin ([facility]) Check blood sugars daily, notify if <70 [...] and simple sugars. documented in this encounter [facility] 12-31-2023 Instructions Vandana Almanza NP - 12/31/2023 9:20 AM EST Decongestant: go back to pharmacy counter, and ask pharmacist for decongestant for people with high blood pressure Continue to monitor blood sugar For allergies: add zyrtec 10mg pill daily, and flonase nasal spray daily script sent in, and stop benadryl documented in this encounter [facility] 11-21-2023 Telephone encount er Note A1c went from 6.8 to 7.6. I would recommend trying something like the farxiga or jardiance product. Has pt checked with his insurance about Farxiga? Also his prostate blood test is normal [place] [facility] 11-21-2023 Miscellaneous Notes Formattin g of this note might be different from the original. A1c went from 6.8 to 7.6. I would recommend trying something like the farxiga or jardiance product. Has pt checked with his insurance about Farxiga? Also his prostate blood test is normal [place] documented in this encounter [facility] 11-18-2023 History of Presen t illness Narrative Associated Problem(s): Primary osteoarthritis involving multiple joints Will trial meloxicam at 15mg daily No other NSAIDS for pain Fu in 4-6 weeks If not better knee pain or hip pain, consider to ortho Associated Problem(s): Lower extremity edema Stable cont current meds Associated Problem(s): Type 2 diabetes mellitus without complication, without long-term current use of insulin ([facility]) CGM does report over 80% of time in range, does have some low blood sugars usually around noon time Eats breakfast 4:30am and takes his meds then as well. [place] no dips with jardiance, however cannot afford this med even with co pay card. I have asked him to check with insurance to see if Farxiga is more affordable Check A1c test Fu [...] to talk about getting a quad cane Carlos Bishop is a 58 y.o. male presents with [...] compliance problems. There is no history of CAD/[place], CVA or retinopathy. SUBJECTIVE: MEDICATIONS: Current Outpatient [...] complication, unspecified asthma severity, unspecified whether persistent ([facility]) Attention deficit disorder (ADD) in adult Diagnosed 13 years ago. Pt was on ritalin and wellbutrin. Pt states he still has symptoms, but since he switched jobs he has no issue. No new issues since last visit. Elevated ferritin History of kidney stones HLD (hyperlipidemia) ([facility]) 02/25/2023 NO issues at this time. Pt takes meds regularly. Previous Hx as below No issues at this time. Takes his meds daily. Previous Hx as below No issues today. Previous Hx as below No issues with his lipitor. Takes his meds daily. Hypertension, benign ([facility]) Lazy eye, left Still seeing Optho. Previous Hx as below Pt states optho is helping him. No issues. Previous hx Pt had corrective surgery which did not completely fix the issue. It is better. Pt sees Optho. No changes since last visit. Lower extremity edema Morbid obesity with body mass index (BMI) of 40.0 to 49.9 ([facility]) Onychomycosis of toenail L great toe SK (seborrheic keratosis) Pt states he has a spot on his L uatsdin that comes up. Its raised and itchy. Pt states it rubs on his glasses. He states he picks at it. Derm is wanting a biopsy. He is schedule for this. Sleep apnea, obstructive Type 2 diabetes mellitus with peripheral neuropathy ([facility]) Past Surgical History: Procedure Laterality Date ANKLE SURGERY [facility]/Dr. Saenz Right flexor hallucis longus longus [...] and takes his meds then as well. [place] no dips with jardiance, however cannot afford this med even with co pay card. I have asked him to check with insurance to see if Farxiga is more affordable Check A1c test Fu in 4 weeks Relevant Orders Hemoglobin A1c Prostate cancer screening Relevant Orders PSA Primary osteoarthritis involving multiple joints Will trial meloxicam at 15mg daily No other NSAIDS for pain Fu in 4-6 weeks If not better knee pain or hip pain, consider to ortho Relevant Medications meloxicam (Mobic) 15 MG tablet documented in this encounter [facility] 03-31-2023 History of Presen t illness Narrative [...] from the original note were not included. Carlos Bishop is a 57 y.o. male presents with [...] complication, unspecified asthma severity, unspecified whether persistent ([facility]) Attention deficit disorder (ADD) in adult Diagnosed 13 years ago. Pt was on ritalin and wellbutrin. Pt states he still has symptoms, but since he switched jobs he has no issue. No new issues since last visit. Elevated ferritin History of kidney stones HLD (hyperlipidemia) ([facility]) 02/25/2023 NO issues at this time. Pt takes meds regularly. Previous Hx as below No issues at this time. Takes his meds daily. Previous Hx as below No issues today. Previous Hx as below No issues with his lipitor. Takes his meds daily. Hypertension, benign ([facility]) Lazy eye, left Still seeing Optho. Previous Hx as below Pt states optho is helping him. No issues. Previous hx Pt had corrective surgery which did not completely fix the issue. It is better. Pt sees Optho. No changes since last visit. Lower extremity edema Morbid obesity with body mass index (BMI) of 40.0 to 49.9 ([facility]) Onychomycosis of toenail L great toe SK (seborrheic keratosis) Pt states he has a spot on his L uatsdin that comes up. Its raised and itchy. Pt states it rubs on his glasses. He states he picks at it. Derm is wanting a biopsy. He is schedule for this. Sleep apnea, obstructive Type 2 diabetes mellitus with peripheral neuropathy ([facility]) Past Surgical History: Procedure Laterality Date ANKLE SURGERY [facility]/Dr. Saenz Right flexor hallucis longus longus [...] well as KUB documented in this encounter [facility] Healthcare Evaluation note Diagnosis Type 2 diabetes mellitus with peripheral neuropathy (CMS/HCC)- Primary BMI 45.0-49.9, adult (CMS/HCC) Microscopic hematuria Generalized abdominal pain Abdominal pain, generalized documented in this encounter [facility] HealthcareEvaluation note* Diagnosis Onset Date Resolution Status Abdominal pain acute Nausea acute Abdominal pain acute [facility] Work Phone: Evaluation note* Diagnosis Type 2 diabetes mellitus without complication, without long-term current use of insulin (CMS/HCC)- Primary Prostate cancer screening Special screening for malignant neoplasm of prostate 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 peripheral neuropathy (CMS/HCC) BMI 45.0-49.9, adult (CMS/HCC) Lower extremity edema Edema documented in this encounter [facility] HealthcareEvaluation note* Diagnosis Type 2 diabetes [...] Primary Essential hypertension, benign BMI 45.0-49.9, adult ([facility]/HCC) Primary osteoarthritis involving multiple joints Gastroesophageal reflux disease without esophagitis Esophageal reflux Type 2 diabetes mellitus without complication, without long-term current use of insulin (CMS/HCC) Type 2 diabetes mellitus with peripheral neuropathy (CMS/HCC) Environmental and seasonal allergies documented in this encounter [facility] HealthcareEvaluation note* Diagnosis Type 2 diabetes mellitus with peripheral neuropathy (CMS/HCC)- Primary Hypertension, benign (CMS/HCC) Essential hypertension, benign Mixed hyperlipidemia (CMS/HCC) Mixed hyperlipidemia Morbid obesity with body mass index (BMI) of 40.0 to 49.9 ([facility]) Sleep apnea, obstructive Obstructive sleep apnea (adult) (pediatric) Generalized abdominal pain Abdominal pain, generalized Type 2 diabetes mellitus with peripheral neuropathy (CMS/HCC)- Primary BMI 45.0-49.9, adult (CMS/HCC) Microscopic hematuria Generalized abdominal pain Abdominal pain, generalized BMI 45.0-49.9, adult ([facility]/HCC)- Primary Hypertension, benign (CMS/HCC) Essential hypertension, benign Type 2 diabetes mellitus without complication, without long-term current use of insulin ([facility]) Subacute maxillary sinusitis Type 2 diabetes mellitus without complication, without long-term current use of insulin ([facility])- Primary Arthralgia, unspecified joint Lower extremity edema [...] with peripheral neuropathy (CMS/HCC) BMI 45.0-49.9, adult (CMS/[facility]) Lower extremity edema Edema Hypertension, benign (CMS/HCC)- Primary Essential hypertension, benign BMI 45.0-49.9, adult (CMS/HCC) Primary osteoarthritis involving multiple joints Gastroesophageal reflux disease without esophagitis Esophageal reflux Type 2 diabetes mellitus without complication, without long-term current use of insulin (CMS/HCC) Type 2 diabetes mellitus with peripheral neuropathy ([facility]/HCC) Environmental and seasonal allergies documented in this encounter [facility] HealthcareEvaluation note* Diagnosis Type 2 diabetes mellitus without complication, without long-term current use of insulin ([facility]) Lower extremity edema Edema Hypertension, benign (CMS/HCC) Essential hypertension, benign documented in this encounter [facility] HealthcareEvaluation note* Diagnosis Type 2 diabetes mellitus with peripheral neuropathy (CMS/HCC) documented in this encounter [facility] HealthcareEvaluation note* Diagnosis Type 2 diabetes mellitus with peripheral neuropathy (CMS/HCC)- Primary Hypertension, benign (CMS/HCC) Essential hypertension, benign Mixed hyperlipidemia ([facility]) Mixed hyperlipidemia Morbid obesity with body mass index (BMI) of 40.0 to 49.9 ([facility]) Sleep apnea, obstructive Obstructive sleep apnea (adult) (pediatric) Generalized abdominal pain Abdominal pain, generalized Type 2 diabetes mellitus with peripheral neuropathy (CMS/HCC)- Primary BMI 45.0-49.9, adult (CMS/[facility]) Microscopic hematuria Generalized abdominal pain Abdominal pain, generalized BMI 45.0-49.9, adult ([facility])- Primary Hypertension, benign (CMS/[facility]) Essential hypertension, benign Type 2 diabetes mellitus without complication, without long-term current use of insulin ([facility]) Subacute maxillary sinusitis Type 2 diabetes mellitus without complication, without long-term current use of insulin (CMS/HCC)- Primary Arthralgia, unspecified joint Lower extremity edema Edema BMI 45.0-49.9, adult ([facility]) Hypertension, benign (CMS/[facility]) Essential hypertension, benign Colon cancer screening Special screening for malignant neoplasms, colon Type 2 diabetes mellitus without complication, without long-term current use of insulin (CMS/[facility])- Primary Prostate cancer screening Special screening for malignant neoplasm of prostate 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 peripheral neuropathy (CMS/HCC) BMI 45.0-49.9, adult ([facility]) Lower extremity edema Edema Hypertension, benign (CMS/HCC)- Primary Essential hypertension, benign BMI 45.0-49.9, adult ([facility]) Primary osteoarthritis involving multiple joints Gastroesophageal reflux disease without esophagitis Esophageal reflux Type 2 diabetes mellitus without complication, without long-term current use of insulin ([facility]/HCC) Type 2 diabetes mellitus with peripheral neuropathy (CMS/HCC) Environmental and seasonal allergies Primary osteoarthritis involving multiple joints- Primary documented in this encounter [facility] HealthcareEvaluation note* Diagnosis Type 2 diabetes [...] pain Abdominal pain, generalized BMI 45.0-49.9, adult ([facility]/HCC)- Primary Hypertension, benign (CMS/HCC) Essential hypertension, benign Type 2 diabetes mellitus without complication, without long-term current use of insulin (CMS/[facility]) Subacute maxillary sinusitis Type 2 diabetes mellitus without complication, without long-term current use of insulin ([facility]/HCC)- Primary Arthralgia, unspecified joint Lower extremity edema [...] Primary Essential hypertension, benign BMI 45.0-49.9, adult ([facility]/HCC) Primary osteoarthritis involving multiple joints Gastroesophageal reflux disease without esophagitis Esophageal reflux Type 2 diabetes mellitus without complication, without long-term current use of insulin (CMS/HCC) Type 2 diabetes mellitus with peripheral neuropathy (CMS/HCC) Environmental and seasonal allergies Type 2 diabetes mellitus without complication, without long-term current use of insulin (CMS/HCC)- Primary Type 2 diabetes mellitus with diabetic polyneuropathy (CMS/HCC) Morbid (severe) obesity due to excess calories ([facility]) Body mass index (BMI) 45.0-49.9, adult (CMS/HCC) Hypertension, benign (CMS/HCC) Essential hypertension, benign Lower extremity edema Edema Mixed hyperlipidemia (CMS/HCC) Mixed hyperlipidemia Environmental and seasonal allergies 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 peripheral neuropathy (CMS/HCC) Sleep apnea, obstructive Obstructive sleep apnea (adult) (pediatric) documented in this encounter [facility] HealthcareEvaluation note* Diagnosis Type 2 diabetes mellitus with peripheral neuropathy (HCC)- Primary Hypertension, benign Essential hypertension, benign Mixed hyperlipidemia Mixed hyperlipidemia Morbid obesity with body mass index (BMI) of 40.0 to 49.9 ([facility]-HCC) Sleep apnea, obstructive Obstructive sleep apnea (adult) (pediatric) Generalized abdominal pain Abdominal pain, generalized Type 2 diabetes mellitus with peripheral neuropathy (HCC)- Primary BMI 45.0-49.9, adult ([facility]) Microscopic hematuria Generalized abdominal pain Abdominal pain, generalized BMI 45.0-49.9, adult ([facility]-HCC)- Primary Hypertension, benign Essential hypertension, benign Type 2 diabetes mellitus without complication, without long-term current use of insulin (HCC) Subacute maxillary sinusitis Type 2 diabetes mellitus without complication, without long-term current use of insulin (HCC)- Primary Arthralgia, unspecified joint Lower extremity edema Edema BMI 45.0-49.9, adult ([facility]) Hypertension, benign Essential hypertension, benign Colon cancer screening Special screening for malignant neoplasms, colon Type 2 diabetes mellitus without complication, without long-term current use of insulin (HCC)- Primary Prostate cancer screening Special screening for malignant neoplasm of prostate 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 peripheral neuropathy (HCC) BMI 45.0-49.9, adult ([facility]) Lower extremity edema Edema Hypertension, benign- Primary Essential hypertension, benign BMI 45.0-49.9, adult ([facility]) Primary osteoarthritis involving multiple joints Gastroesophageal reflux disease without esophagitis Esophageal reflux Type 2 diabetes mellitus without complication, without long-term current use of insulin (HCC) Type 2 diabetes mellitus with peripheral neuropathy (HCC) Environmental and seasonal allergies Type 2 diabetes mellitus without complication, without long-term current use of insulin (HCC)- Primary Type 2 diabetes mellitus with diabetic polyneuropathy (HCC) Morbid (severe) obesity due to excess calories ([facility]) Body mass index (BMI) 45.0-49.9, adult ([facility]) Hypertension, benign Essential hypertension, benign Lower extremity edema Edema Mixed hyperlipidemia Mixed hyperlipidemia Environmental and seasonal allergies 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 peripheral neuropathy (HCC) Sleep apnea, obstructive Obstructive sleep apnea (adult) (pediatric) Type 2 diabetes mellitus without complication, without long-term current use of insulin (HCC)- Primary Sleep apnea, obstructive Obstructive sleep apnea (adult) (pediatric) Asthma in adult without complication, unspecified asthma severity, unspecified whether persistent (HCC) Hypertension, benign Essential hypertension, benign Lower extremity edema Edema Morbid (severe) obesity due to excess calories (CMS-HCC) Mixed hyperlipidemia Mixed hyperlipidemia Environmental and seasonal allergies Type 2 diabetes mellitus with peripheral neuropathy (HCC) Primary osteoarthritis involving multiple joints Moderate episode of recurrent major depressive disorder (HCC) Attention deficit disorder (ADD) in adult documented in this encounter [facility] HealthcareEvaluation note* Diagnosis Onset Date Resolution Status Admit Date Moderate episode of recurren t major depressive disorder acute Septem 2024 5:24pm Morbid (severe) obesity due to excess calories acute October 5:24pm Type 2 diabetes mellitus without complication, without long-term current acute October 252024 5:24pm [facility] Work Phone: Reason for referral (narrative)No reason for referral information availableGuernsey [facility] Hospital Work Phone: Summary Purpose Family History No Family History Records FoundNo Family History Records Found Advance Directives Advance Directive Response Recorded Date/ Time Advance Directives No March 12, 2023 1:00pm Chief Complaint and Reason for Visit Chief Complaint abdominal pain/Vandana Aiceduz referred 1 month follow up Reason for Visit Abdominal pain Nausea Abdominal pain Chief Complaint Admit Date ESTABLISHED PATIENT October 25, 2024 5:24pm Reason for Visit Admit Date Moderate episode of recurrent major depr essive disorder October 25, 2024 5:24pm Morbid (severe) obesity due to excess ca lories October 25, 2024 5:24pm Type 2 diabetes mellitus wit hout complication, without long-term current October 25, 2024 5:24pm Additional Source Comments (unrecognized sect ion and content) No Status Records FoundNo Status Records Found INFORMATION SOURCE (unrecogn ized section and content) DATE CREATED AUTHOR 04/12/2022 [facility] DATE CREATED AUTHOR AUTHOR'S ORGANIZ ATION 09/28/2024 [facility] Care Teams (unrecognized sec tion and content) Plastic Sewer Relationship Specialty Start Date End Date Fawwad, Campbell, MD [address] [place] [phone] PCP - General Internal Medicine 03/31/23 Plastic Sewer Relationship Specialty Start Date End Date Shaikh Cervantes MD [address] [place] [phone] PCP - General Internal Medicine 03/31/23 Plastic Sewer Relationship Specialty Start Date End Date Shaikh Cervantes MD [address] [place] [phone] PCP - General Internal Medicine 03/31/23 Team [...] May 20, 2023 End: May 20, 2023 Plastic Sewer Relationship Specialty Start Date End Date Justino Silva MD [address] [place] [phone] PCP - General Family Medicine 11/17/23 Vandana Almanza NP [address] [place] [phone] Nurse Practitioner Family Medicine 11/17/23 Plastic Sewer Relationship Specialty Start Date End Date Justino Silva MD [address] [place] [phone] PCP - General Family Medicine 11/17/23 Vandana Almanza NP [address] [place] [phone] Nurse Practitioner Family Medicine 11/17/23 Plastic Sewer Relationship Specialty Start Date End Date Justino Silva MD [address] [place] [phone] PCP - General Family Medicine 11/17/23 Vandana Almanza NP [address] [place] [phone] Nurse Practitioner Family Medicine 11/17/23 Plastic Sewer Relationship Specialty Start Date End Date Justino Silva MD [address] [place] [phone] PCP - General Family Medicine 11/17/23 Vandana Almanza NP [address] [place] [phone] Nurse Practitioner Family Medicine 11/17/23 Plastic Sewer Relationship Specialty Start Date End Date Justino Silva MD [address] [place] [phone] PCP - General Family Medicine 11/17/23 Vandana Almanza NP [address] [place] [phone] Nurse Practitioner Family Medicine 11/17/23 Plastic Sewer Relationship Specialty Start Date End Date Justino Silva MD [address] [place] [phone] PCP - General Family Medicine 11/17/23 Vandana Almanza NP [address] [place] [address] Nurse Practitioner Family Medicine 11/17/23 Plastic Sewer Relationship Specialty Start Date End Date Justino Silva MD [address] [place] [phone] PCP - General Family Medicine 11/17/23 Vandana Almanza NP [address] [place] [phone] Nurse Practitioner Family Medicine 11/17/23 Plastic Sewer Relationship Specialty Start Date End Date Shaikh Cervantes MD [address] [place] [phone] PCP - General Internal Medicine 03/31/23 Plastic Sewer Relationship Specialty Start Date End Date Shaikh Cervantes MD [address] [place] [phone] PCP - General Internal Medicine 03/31/23 Plastic Sewer Relationship Specialty Start Date End Date Justino Silva MD [address] [place] [address] PCP - General Family Medicine 11/17/23 Vandana Almanza NP [address] [place] [phone] Nurse Practitioner Family Medicine 11/17/23 Plastic Sewer Relationship Specialty Start Date End Date Justino Silva MD [address] [place] [phone] PCP - General Family Medicine 11/17/23 Vandana Almanza NP [address] [place] [phone] Nurse Practitioner Family Medicine 11/17/23 Plastic Sewer Relationship Specialty Start Date End Date Justino Silva MD [address] [place] [phone] PCP - General Family Medicine 11/17/23 Vandana Almanza NP [address] [place] [phone] Nurse Practitioner Family Medicine 11/17/23 Plastic Sewer Relationship Specialty Start Date End Date Justino Silva MD [address] [place] [phone] PCP - General Family Medicine 11/17/23 Vandana Almanza NP [address] [place] [phone] Nurse Practitioner Family Medicine 11/17/23 Plastic Sewer Relationship Specialty Start Date End Date Justino Silva MD [address] [place] [phone] PCP - General Family Medicine 11/17/23 Vandana Almanza NP [address] [place] [phone] Nurse Practitioner Family Medicine 11/17/23 Plastic Sewer Relationship Specialty Start Date End Date Justino Silva MD [address] [place] [phone] PCP - General Family Medicine 11/17/23 Vandaan Almanza NP [address] [place] [phone] Nurse Practitioner Family Medicine 11/17/23 Plastic Sewer Relationship Specialty Start Date End Date Justino Silva MD [address] [place] [phone] PCP - General Family Medicine 11/17/23 Vandana Almanza NP [address] [place] [phone] Nurse Practitioner Family Medicine 11/17/23 Team Status: Inactive Member Role Status Dates Vandana Almanza Primary Care Provider Active Sta rt: October 25, 2024 End: October 25, 2024 Vandana Almanza Attending Provider Active Start: October 25, 2024 End: October 25, 2024 Goals (unrecognized section and content) Goals may be documented in a n alternate sectionGoals may be documented in an alternate section Reason for Visit (unrecogniz ed [...] BE BASED ON THE PRIMARY CLINICAL RECORDS. [facility] [employer] [facility]. provides no warranty or guarantee of the accuracy or completeness of information in this document.
--- NOTE | 2024-11-03 10:16 | CT_ITS ---
The [address] [address] Patient Name: PITA HARDEN MRN: [id number] date: 1965 Sex: M Assigned Patient Location: ER Current Patient Location: ER Accession/Order Number: [id number] Exam Date: 11/03/2024 10:48 Report Date: 11/03/2024 11:24 At the request of: MARCO DE PAZ MD Procedure: CT stroke head/brain wo con CT BRAIN WITHOUT CONTRAST - stroke alert: CLINICAL HISTORY: Transient Left-sided facial numbness yesterday, since resolved COMPARISON: None TECHNIQUE: Contiguous axial unenhanced images were obtained through the brain. This CT exam was performed using one or more following dose reduction techniques: Automated exposure control, adjustment of the mA and/or kV according to patient size, or use of iterative reconstruction technique. FINDINGS: The ventricles are normal in size and position. There are no significant areas of abnormal attenuation. There is no hemorrhage, mass effect or extra-axial collections. The imaged paranasal sinuses and mastoid air cells are clear. There is carotid siphon plaque. CT/CT stroke head/brain wo con IMPRESSION: NO DEFINITE ACUTE INTRACRANIAL ABNORMALITY. FOLLOW-UP IS RECOMMENDED, SYMPTOMS WARRANT. Impression dictated by: Kristie Tomas M.D. 11/03/2024 11:24 AM Dictation Location: [email or web address] Electronically authenticated by: [id number] Y Date: 11/03/2024 11:24
--- NOTE | 2024-11-03 10:16 | ECG_ITS ---
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
--- NOTE | 2024-11-03 10:17 | ED.GENADUL1 ---
HPI HPI - General Adult General Chief complaint: Extremity Problem, Nontraumatic Stated complaint: L SIDE FACIAL NUMBNESS Time Seen by Provider: 11/03/24 10:12 Source: patient Mode of arrival: walk-in History of Present Illness HPI narrative: 59-year-old male presents for 2 episodes of numbness on the left side of his face. The first time it happened he was in the shower yesterday morning and it was at the left corner of his face and below his eye. It lasted for 3 minutes. It happened again in the afternoon at 2:00 and it was in the same area and it lasted the same amount of time. It has not recurred since then. No localized weakness in his arms or legs. No headache or trauma. Nothing like this has ever happened to him previously. He contacted his PCPs office yesterday who told him to go to the emergency department. He was too tired yesterday so he came in today. Related Data Home Medications ?Medication ?Instructions ?Recorded ?Confirmed atorvastatin 40 mg tablet 40 mg PO DAILY 11/03/24 11/03/24 bupropion HCl 150 mg 24 hr tablet, 150 mg PO DAILY 11/03/24 11/03/24 extended release cetirizine 10 mg tablet 10 mg PO DAILY 11/03/24 11/03/24 fluticasone propionate 110 1 puff inhalation Q12H 11/03/24 11/03/24 mcg/actuation HFA aerosol inhaler fluticasone propionate 50 2 spray intranasal DAILY 11/03/24 11/03/24 mcg/actuation nasal spray,suspension glipizide 10 mg tablet 10 mg PO BID 11/03/24 11/03/24 hydrochlorothiazide 25 mg tablet 25 mg PO DAILY 11/03/24 11/03/24 insulin glargine-yfgn 100 unit/mL 20 unit subcut DAILY 11/03/24 11/03/24 (3 mL) subcutaneous pen meloxicam 15 mg tablet 15 mg PO DAILY 11/03/24 11/03/24 metformin 1,000 mg tablet 1,000 mg PO BID 11/03/24 11/03/24 valsartan 160 mg tablet 160 mg PO DAILY 11/03/24 11/03/24 Allergies Allergy/AdvReac Type Severity Reaction Status Date / Time amoxicillin Allergy Severe Rash Verified 11/03/24 10:04 Review of Systems ROS Narrative A ten point review of systems is negative except as noted above. PFSH PFSH Social History Little interest or pleasure in doing things: not at all Feeling down, depressed, or hopeless: not at all Exam Narrative Exam Narrative: Nurses note and vital signs reviewed and patient is not hypoxic. General: The patient appears well and in no apparent distress. Patient is resting comfortably on cart. Skin: Warm, dry, no pallor noted. There is no rash noted. Head: Normocephalic, atraumatic Eye: Normal conjunctiva, no drainage. He has disconjugate gaze. 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 This is unchanged for him. Ears, Nose, Mouth, and Throat: oral mucosa is moist. Nares patent. Cardiovascular: Regular Rate and Rhythm Respiratory: Patient is in no distress, no accessory muscle use, lungs are clear to auscultation, no wheezing, rales or rhonchi Back: non-tender GI: Soft and non- Musculoskeletal: The patient has no evidence of calf tenderness, no pitting edema, symmetrical pulses noted bilaterally Neurological: Awake alert and oriented. Upper lower extremity strength 5 out of 5 and symmetric. Cranial nerves II through XII are intact other than the lateral gaze of his left eye which is of long standing nature Psychiatric: Cooperative Constitutional Vital Signs, click to edit/add: Last Vital Signs Temp 98.4 F 11/03/24 10:00 Pulse 66 11/03/24 12:31 Resp 18 11/03/24 12:31 BP 112/49 11/03/24 12:31 Pulse Ox 97 11/03/24 10:00 O2 Del Method Room Air 11/03/24 10:00 Course Vital Signs Vital signs: Vital Signs Temperature 98.4 F 11/03/24 10:00 Pulse Rate 70 11/03/24 10:00 Respiratory Rate 18 11/03/24 10:00 Blood Pressure 171/84 H 11/03/24 10:00 Pulse Oximetry 97 11/03/24 10:00 Oxygen Delivery Method Room Air 11/03/24 10:00 Temperature 98.4 F 11/03/24 10:00 Pulse Rate 66 11/03/24 12:31 Respiratory Rate 18 11/03/24 12:31 Blood Pressure 112/49 11/03/24 12:31 Pulse Oximetry 97 11/03/24 10:00 Oxygen Delivery Method Room Air 11/03/24 10:00 Medical Decision Making MDM Narrative Medical decision making narrative: Brain CT is negative. CTA head and neck showed no significant occlusion. There is only mild plaque. He has no symptoms and has not had any since yesterday. There is no indication for admission in the hospital or further workup at this point and he will be discharged home. He will call his PCP today for appropriate follow-up. Treatment diagnosis and follow-up were discussed with the patient. Differential Diagnosis Differential Diagnosis: Paresthesia, stroke, TIA Lab Data Lab results reviewed: Yes I reviewed the patient's lab results Labs: Lab Results 11/03/24 Range/Units 10:35 WBC 6.1 (4.0-11.0) 10^3/uL RBC 4.09 L (4.70-6.10) 10^6/uL Hgb 12.2 L (14.0-18.0) g/dL Hct 35.4 L (42.0-54.0) % MCV 86.6 (80.0-94.0) fL MCH 29.8 (25.9-34.0) pg MCHC 34.5 (29.9-35.2) g/dL RDW 13.5 (11.0-15.0) % Plt Count 188 (150-450) 10^3/uL MPV 9.9 (9.5-13.5) fL Neut % (Auto) 57.0 (43.0-75.0) % Lymph % (Auto) 32.0 (20.5-60.0) % [place] % (Auto) 6.2 (1.7-12.0) % Eos % (Auto) 4.2 (0.9-7.0) % Baso % (Auto) 0.3 (0.2-2.0) % Neut # (Auto) 3.5 (1.4-6.5) 10^3/uL Lymph # (Auto) 2.0 (1.2-3.8) 10^3/uL [place] # (Auto) 0.4 (0.3-0.8) 10^3/uL Eos # (Auto) 0.3 (0.0-0.7) 10^3/uL Baso # (Auto) 0.0 (0.0-0.1) 10^3/uL Abs Immat Gran (auto) 0.02 (0.00-0.03) 10^3/uL Imm/Tot Granulo (auto) 0.3 (0.0-0.5) % Sodium 138 (136-145) mmol/L Potassium 3.8 (3.5-5.1) mmol/L Chloride 104 (98-107) mmol/L Carbon Dioxide 29.3 (21.0-32.0) mmol/L Anion Gap 8.5 BUN 19.0 H (7.0-18.0) mg/dL Creatinine 0.93 (0.70-1.30) mg/dL Est GFR ( Amer) >60 (>=60 mL/min/1.73m^2) Est GFR (Non-Af Amer) >60 (>=60 mL/min/1.73m^2) BUN/Creatinine Ratio 20.4 Glucose 142 H (74-106) mg/dL Calcium 8.5 (8.5-10.1) mg/dL Imaging Data CT scan - head: Radiologist's impression: ITS Impressions Brain CT 11/03/24 10:16 IMPRESSION: NO DEFINITE ACUTE INTRACRANIAL ABNORMALITY. FOLLOW-UP IS RECOMMENDED, SYMPTOMS WARRANT. Impression dictated by: Kristie Tomas M.D. 11/03/2024 11:24 AM Dictation Location[facility] Electron[facility] authenticated by: [id number] Y Date: 11/03/2024 11:24 Head CTA 11/03/24 11:32 IMPRESSION: Negative for large vessel occlusion or hemodynamically stenosis. Impression dictated by: Jad Garcia M.D. 11/03/2024 12:48 PM Dictation Location: [facility] [employer] [employer] Electronically authenticated by: [id number] Y Date: 11/03/2024 12:48 Neck CTA 11/03/24 11:32 IMPRESSION: Negative for large vessel occlusion or hemodynamically stenosis. Impression dictated by: Jad Garcia M.D. 11/03/2024 12:48 PM Dictation Location: [facility] Electronically authenticated by: [id number] Y Date: 11/03/2024 12:48 ECG Data Attestation: I personally reviewed and interpreted this ECG as follows: (EKG on my interpretation shows normal sinus rhythm with a rate of 66 and no acute change) Discharge Plan Discharge Chief Complaint: Extremity Problem, Nontraumatic Clinical Impression: Paresthesia Patient Disposition: Home, Self-Care Time of Disposition Decision: 13:25 Condition: Good Mode of Transportation: Private Vehicle Prescriptions / Home Meds: No Action atorvastatin 40 mg tablet 40 mg PO DAILY bupropion HCl 150 mg tablet extended release 24 hr 150 mg PO DAILY cetirizine 10 mg tablet 10 mg PO DAILY fluticasone propionate 110 mcg/actuation HFA aerosol inhaler 1 puff INHALATION Q12H fluticasone propionate 50 mcg/actuation spray,suspension 2 spray INTRANASAL DAILY glipizide 10 mg tablet 10 mg PO BID hydrochlorothiazide 25 mg tablet 25 mg PO DAILY meloxicam 15 mg tablet 15 mg PO DAILY metformin 1,000 mg tablet 1,000 mg PO BID valsartan 160 mg tablet 160 mg PO DAILY insulin glargine-yfgn 100 unit/mL (3 mL) insulin pen 20 unit SUBCUT DAILY Print Language: Armenian Instructions: Paresthesia (ED) Additional Instructions: Call your PCP today to arrange follow-up. Referrals: Vandana Almanza NP [Primary Care Provider, Family Practice] - 1 week
[2024-11-03 10:43] LABS: Hematocrit 35.4 % (42.0-54.0); Hemoglobin 12.2 g/dL (14.0-18.0); Immature Granulocytes Abs Auto 0.02 10^3/uL (0.00-0.03); Immature Granulocytes Pct Auto 0.3 % (0.0-0.5); Lymphocytes Absolute Auto 2.0 10^3/uL (1.2-3.8); Mean Corpuscular HGB Conc 34.5 g/dL (29.9-35.2); Mean Corpuscular Hemoglobin 29.8 pg (25.9-34.0); Mean Corpuscular Volume 86.6 fL (80.0-94.0); Platelet Count 188 10^3/uL (150-450); Red Blood Count 4.09 10^6/uL (4.70-6.10); White Blood Count 6.1 10^3/uL (4.0-11.0)
[2024-11-03 10:50] LABS: Anion Gap 8.5; Blood Urea Nitrogen 19.0 mg/dL (7.0-18.0); Calcium 8.5 mg/dL (8.5-10.1); Carbon Dioxide 29.3 mmol/L (21.0-32.0); Chloride 104 mmol/L (98-107); Estimated GFR (African America >60 (>=60 mL/min/1.73m^2); Estimated GFR (Non-African Ame >60 (>=60 mL/min/1.73m^2); Glucose 142 mg/dL (74-106); Potassium 3.8 mmol/L (3.5-5.1); Sodium 138 mmol/L (136-145)
--- NOTE | 2024-11-03 11:32 | CT_ITS ---
The [address] [address] Patient Name: PITA HARDEN MRN: [id number] date: 1965 Sex: M Assigned Patient Location: ER Current Patient Location: Accession/Order Number: [id number] Exam Date: 11/03/2024 12:01 Report Date: 11/03/2024 12:48 At the request of: MARCO DE PAZ MD Procedure: CT angio head CT angiogram head and neck Indication: Facial numbness, resolved COMPARISON: CT head without contrast 11/03/2024 TECHNIQUE: Contiguous CT angiogram images were obtained through the head and neck with coronal and sagittal reformats. 3-D reconstructions of the cervical vasculature were performed. This CT exam was performed using one or more following dose reduction techniques: Automated exposure control, adjustment of the mA and/or kV according to patient size, or use of iterative reconstruction technique. Mild plaque. Aortic arch is not aneurysmal. Three-vessel arch. Common arteries, carotid bifurcations and cervical ICAs are patent with coarse. Mild plaque and mild narrowing both cervical ICAs not hemodynamically significant. Codominant vertebral arteries appearing patent throughout their is course. Intradural vertebral arteries, picas, basilar artery, basilar tip and basilar bifurcation patent. Posterior cerebral arteries are patent. Mild plaque involving the intracranial ICAs. ACAs are patent. Anterior communicating artery patent. MCAs are patent. No saccular aneurysm identified. Dural venous sinuses are patent. Straightening and multilevel degenerative changes identified throughout the cervical spine. Lung apices are clear CT/CT angio neck IMPRESSION: Negative for large vessel occlusion or hemodynamically stenosis. Impression dictated by: Jad Garcia M.D. 11/03/2024 12:48 PM Dictation Location: [place] [address] Electronically authenticated by: [id number] Y Date: 11/03/2024 12:48
--- NOTE | 2024-11-03 11:32 | CT_ITS ---
The [address] [address] Patient Name: PITA HARDEN MRN: [id number] date: 1965 Sex: M Assigned Patient Location: ER Current Patient Location: Accession/Order Number: [id number] Exam Date: 11/03/2024 12:01 Report Date: 11/03/2024 12:48 At the request of: MARCO DE PAZ MD Procedure: CT angio head CT angiogram head and neck Indication: Facial numbness, resolved COMPARISON: CT head without contrast 11/03/2024 TECHNIQUE: Contiguous CT angiogram images were obtained through the head and neck with coronal and sagittal reformats. 3-D reconstructions of the cervical vasculature were performed. This CT exam was performed using one or more following dose reduction techniques: Automated exposure control, adjustment of the mA and/or kV according to patient size, or use of iterative reconstruction technique. Mild plaque. Aortic arch is not aneurysmal. Three-vessel arch. Common arteries, carotid bifurcations and cervical ICAs are patent with coarse. Mild plaque and mild narrowing both cervical ICAs not hemodynamically significant. Codominant vertebral arteries appearing patent throughout their is course. Intradural vertebral arteries, picas, basilar artery, basilar tip and basilar bifurcation patent. Posterior cerebral arteries are patent. Mild plaque involving the intracranial ICAs. ACAs are patent. Anterior communicating artery patent. MCAs are patent. No saccular aneurysm identified. Dural venous sinuses are patent. Straightening and multilevel degenerative changes identified throughout the cervical spine. Lung apices are clear CT/CT angio head IMPRESSION: Negative for large vessel occlusion or hemodynamically stenosis. Impression dictated by: Jad Garcia M.D. 11/03/2024 12:48 PM Dictation Location: [place] [address] Electronically authenticated by: [id number] Y Date: 11/03/2024 12:48
== END 2024-11-03 13:57 | disposition home or self-care (01) ==
PROVIDERS: Emergency Provider Emergency Medicine; PCP Nurse Practitioner
DX: R20.2 Paresthesia of skin (principal)
CPT/HCPCS: 36415; 70450; 70496; 70498; 80048; 85025; 93005; 99285; Q9967